=== PATIENT | female | born 1955 | race Two or more races ===

== ENCOUNTER 2022-03-24 12:45 | Inpatient (IN) | payer OTHER, SELFPAY ==
--- NOTE | ~2022-03-24 | XR_ITS ---
EXAMINATION: XR FOOT, LEFT CLINICAL INFORMATION: Infection great toe COMPARISON: None TECHNIQUE: AP, lateral, and oblique views of the left foot. FINDINGS: Soft tissue swelling of the first toe. No air or radiopaque foreign bodies identified in the soft tissues. In the distal aspect of first distal phalanx, there is bone demineralization, with subtle cortical ill-definition/irregularity of the distal medial tuft. Early osteomyelitis cannot be excluded. No acute findings identified in the remainder of the bones. Mild spurring and small chronic ossification adjacent to the fifth metatarsal base. Small Achilles tendon insertional spurring. XR/XR foot LT 2V IMPRESSION: First toe soft tissue swelling. Subtle bony findings in the distal aspect of first distal phalanx, raise the possibility of early osteomyelitis. MRI with and without contrast is more sensitive, and may be helpful, and can be considered as clinically indicated.
--- NOTE | ~2022-03-24 | MR_ITS ---
EXAMINATION: XR FOOT, LEFT CLINICAL INFORMATION: Left great toe suspected osteomyelitis on x-ray. COMPARISON: X-ray 03/24/2022. TECHNIQUE: MRI in a high-field magnet without and with contrast. 7.5 mL Gadavist. FINDINGS: FIRST TOE: There is dorsal soft tissue swelling of the 1st toe. In the dorsal soft tissues, is a bright T2/low T1 signal focus. This measures 2.8 x 3.9 x 1.3 cm (transverse, length, maximal AP measurement). No significant enhancement is seen. This could represent an inflammatory or infectious process, blister, abscess not excluded. There is otherwise circumferential soft tissue swelling and increased T2 signal/enhancement from edema/cellulitis. There is mild T2 signal with intermediate T1 signal changes in the 1st distal phalanx. Question faint enhancement in the tuft. These findings could reflect reactive edema or early osteomyelitis. Small 1st MTP joint effusion. Mild 1st MTP arthritis. No osteomyelitis is seen in the remainder of the bones. Essentially circumferential soft tissue swelling and subcutaneous edema/cellulitis in the foot, more prominent dorsally. Visualized tendons intact. There appears to mild peritendinitis of the flexor hallucis longus tendon as it courses in the region of the MTP joint and toe. Visualized plantar aponeurosis appears intact. MR/MR foot LT wo/w con IMPRESSION: 1. T2 bright focus along the dorsal aspect of the 1st toe measuring 2.8 x 3.9 x 1.3 cm, differential considerations include inflammatory process, infectious process, abscess not excluded. There is otherwise circumferential soft tissue swelling, edema/cellulitis. 2. Findings in the 1st distal phalanx, as detailed above, could represent reactive edema or early/evolving osteomyelitis. Follow-up MRI for reassessment as clinically warranted. 3. Mild flexor hallucis longus peritendinitis. 4. First MTP arthritis. 5. Circumferential soft tissue swelling and subcutaneous edema/cellulitis of the foot, more prominent dorsally. 6. Mild flexor hallucis longus peritendinitis.
--- NOTE | ~2022-03-24 | US_ITS ---
EXAMINATION: COLOR-FLOW DUPLEX IMAGING OF THE BILATERAL LOWER EXTREMITY ARTERIAL SYSTEM. VELOCITY MEASUREMENTS THROUGHOUT THE FEMORAL ARTERIES. CLINICAL INFORMATION: This is a 66 year-old woman with a nonhealing lower extremity ulcer. There is a positive smoking history. RIGHT FEMORAL RUNOFF VELOCITIES: The right common femoral artery peak systolic velocity is 175 cm/s. The waveform is triphasic. The right profunda femoral artery peak systolic velocity is 119 cm/s. The waveform is triphasic. The right proximal superficial femoral artery peak systolic velocity is 150 cm/s. The waveform is triphasic. The right mid superficial femoral artery peak systolic velocity is 126 cm/s. The waveform is triphasic. The right distal superficial femoral artery peak systolic velocity is 113 cm/s. The waveform is triphasic. The right popliteal artery peak systolic velocity is 72 cm/s. The waveform is triphasic. The right posterior tibial artery peak systolic velocity is 79 cm/s. The waveform is triphasic. LEFT FEMORAL RUNOFF VELOCITIES: The left common femoral artery peak systolic velocity is 165 cm/s. The waveform is triphasic. The left profunda femoral artery peak systolic velocity is 98 cm/s. The waveform is triphasic. The left proximal superficial femoral artery peak systolic velocity is 162 cm/s. The waveform is triphasic. The left mid superficial femoral artery peak systolic velocity is 151 cm/s. The waveform is triphasic. The left distal superficial femoral artery peak systolic velocity is 144 cm/s. The waveform is triphasic. The left popliteal artery peak systolic velocity is 105 cm/s. The waveform is triphasic. The left posterior tibial artery peak systolic velocity is 107 cm/s. The waveform is triphasic. US/US arterial duplex LE IMPRESSION: No hemodynamically significant bilateral lower extremity peripheral arterial disease is noted. EXAMINATION: NONINVASIVE ANKLE BRACHIAL INDICES OF BOTH LOWER EXTREMITIES CLINICAL INFORMATION: Nonhealing ulcer; smoking history. COMPARISON: None. TECHNIQUE: Ankle-brachial indices were calculated bilaterally and PVR tracings were performed at the level of the ankles. This study was performed at rest only. FINDINGS: a) AT REST: 1. The ankle-brachial indices are: Right 0.92 and left 0.88. >0.97-1.25 = normal - no significant arterial disease. 0.75-0.96 = mild peripheral arterial disease. 0.5-0.74 = moderate peripheral arterial disease. <0.50 = severe peripheral arterial disease. 2. PVR waveforms at ankle: Normal. IMPRESSION: Findings consistent with mild bilateral peripheral arterial disease.
[2022-03-24 13:17] VITALS: BP 150/78; PULSE 110; RESP 18; TEMP 36.8; O2SAT 98; BMI 30.1
--- NOTE | 2022-03-24 13:18 | ED_ITS ---
HPI - Skin/Abscess/Foreign Bdy General Chief complaint: Extremity Problem <Lashonda Wild NP - Last Filed: 03/24/22 13:20> Stated complaint: l thumb infection <Lashonda Wild NP - Last Filed: 03/24/22 13:20> Time Seen by Provider: 03/24/22 16:06 <Lashonda Wild NP - Last Filed: 03/24/22 13:20> Source: patient <Cara Altman NP - Last Filed: 03/24/22 22:37> Mode of arrival: ambulatory <Cara Altman NP - Last Filed: 03/24/22 22:37> Limitations: language barrier <Cara Altman NP - Last Filed: 03/24/22 22:37> History of Present Illness HPI narrative: 66-year-old female presents with left great toe pain and discoloration after a pedicure last week. She noted that the toe turned red and now is black and discolored. She does not report any fevers or chills, but is fatigued. She does have a history of pemphigoid and is treated with methotrexate and prednisone. <Cara Altman NP - Last Filed: 03/24/22 22:37> MD complaint: discoloration <Cara Altman NP - Last Filed: 03/24/22 22:37> Onset (ago): week(s) (1) <Cara Altman NP - Last Filed: 03/24/22 22:37> Tetanus up to date: unsure <Cara Altman NP - Last Filed: 03/24/22 22:37> Location: L foot <Cara Altman NP - Last Filed: 03/24/22 22:37> Severity: severe <Cara Altman NP - Last Filed: 03/24/22 22:37> Severity scale (1-10): 9 <Cara Altman NP - Last Filed: 03/24/22 22:37> Quality: aching <Cara Altman NP - Last Filed: 03/24/22 22:37> Pain Consistency: constant <Cara Altman NP - Last Filed: 03/24/22 22:37> Relieving factors: none <Cara Altman NP - Last Filed: 03/24/22 22:37> Exacerbating factors: palpation and movement <Cara Altman NP - Last Filed: 03/24/22 22:37> Context: other (Pedicure) <Cara Altman NP - Last Filed: 03/24/22 22:37> Associated symptoms: denies other symptoms <Cara Altman NP - Last Filed: 03/24/22 22:37> Treatments prior to arrival: none <Cara Altman NP - Last Filed: 03/24/22 22:37> Related Data Home medications: Home Medications Medication Instructions Recorded Confirmed Alergot Martinez Gan 1 drp ophthalmic (eye) BID 03/24/22 03/24/22 Biotalol 5 mg PO DAILY 03/24/22 03/24/22 Lagrioltol Martinez Gan 1 drp ophthalmic (eye) BID 03/24/22 03/24/22 ascorbic acid (vitamin C) 500 mg 500 mg PO DAILY 03/24/22 03/24/22 tablet (Vitamin C) folic acid 1 mg tablet 10 mg PO DAILY 03/24/22 03/24/22 levothyroxine 50 mcg tablet 50 mcg PO DAILY 03/24/22 03/24/22 (Euthyrox) methotrexate sodium 2.5 mg tablet 2.5 mg PO TU@0900 03/24/22 03/24/22 methotrexate sodium 2.5 mg tablet 5 mg PO MO@0900 03/24/22 03/24/22 mycophenolate mofetil 500 mg tablet 500 mg PO BID 03/24/22 03/24/22 pantoprazole 40 mg tablet,delayed 40 mg PO DAILY@0630 03/24/22 03/24/22 release prednisone 5 mg tablet 5 mg PO DAILY 03/24/22 03/24/22 quetiapine 25 mg tablet 12.5 mg PO DAILY 03/24/22 03/24/22 <Lashonda Wild NP - Last Filed: 03/24/22 13:20> Allergies/Adverse reactions: Allergies Allergy/AdvReac Type Severity Reaction Status Date / Time No Known Allergies Allergy Verified 03/24/22 13:19 <Lashonda Wild NP - Last Filed: 03/24/22 13:20> Review of Systems Review of Systems: Constitutional: No Fever, No Chills Cardiovascular: No Chest Pain, No SOB Respiratory: No Cough, No Dyspnea Gastrointestinal: No Nausea, No Vomiting, No Diarrhea, No abdominal Pain Musculoskeletal: positive left great toe pain, No Myalgias, No Joint Swelling Skin: Positive black discoloration to the left great toe, No Skin lacerations, No rash Neuro: No Weakness, No Numbness, No Paresthesias <Cara Altman NP - Last Filed: 03/24/22 22:37> Yes all other systems are reviewed and are negative <Cara Altman NP - Last Filed: 03/24/22 22:37> [facility] Past Medical History Attestation statement: The following information was validated with the patient. <Cara Altman NP - Last Filed: 03/24/22 22:37> Source: old records reviewed <Cara Altman NP - Last Filed: 03/24/22 22:37> Medical History: Medical History (Updated 03/24/22 @ 20:25 by MERT Montero) Jeff's thyroiditis Pemphigus vulgaris <Lashonda Wild NP - Last Filed: 03/24/22 13:20> Family History Family History: Family History Mother Diabetes <Lashonda Wild NP - Last Filed: 03/24/22 13:20> Social History Social History: Social History (Updated 03/24/22 @ 20:28 by MERT Montero) Alcohol intake: never Patient Tobacco Use Status: Former Tobacco user Smoked in Last 30 Days: No Use of substances other than those prescribed or required for medical reasons: No Advance Directives: No Advance Directives Information Provided: No <Lashonda Wild NP - Last Filed: 03/24/22 13:20> Physical Exam Vital Signs: Vital Signs: Last Vital Signs Temp 97.3 F 03/24/22 22:17 Pulse 109 H 03/24/22 22:17 Resp 18 03/24/22 22:17 BP 170/72 H 03/24/22 22:17 Pulse Ox 96 03/24/22 22:17 O2 Del Method 03/24/22 22:17 BMI result Body Mass Index 30.1 <Lashonda Wild NP - Last Filed: 03/24/22 13:20> Vital Signs: Last Vital Signs Temp 97.3 F 03/24/22 22:17 Pulse 109 H 03/24/22 22:17 Resp 18 03/24/22 22:17 BP 170/72 H 03/24/22 22:17 Pulse Ox 96 03/24/22 22:17 O2 Del Method 03/24/22 22:17 BMI result Body Mass Index 30.1 <Cara Altman NP - Last Filed: 03/24/22 22:37> Appearance: Alert. Oriented X3. Moderate distress. Eyes: Pupils equal, round and reactive to light. ENT: Pharynx normal. Neck: Normal inspection. Neck supple. CVS: Normal heart rate and rhythm. Pulses normal. Respiratory: No respiratory distress. Breath sounds normal. Abdomen: Soft and nontender. Skin: Black discoloration to the left great toe. Extremities: No lower extremity edema. Full range of motion to all digits. Neuro: No motor deficit. No sensory deficit. Cranial nerves 2-12 intact. <Cara Altman NP - Last Filed: 03/24/22 22:37> Course Course Course Narrative: This is a rapid medical exam. Defer additional HPI, ROS, PE department provider. 66 yo female with history of hashimotos, HTN here with left great toe infection after having pedicure. Will check x-rays, labs. VSS <Lashonda Wild NP - Last Filed: 03/24/22 13:20> This is a rapid medical exam. Defer additional HPI, ROS, PE department provider. 66 yo female with history of hashimotos, HTN here with left great toe infection after having pedicure. Will check x-rays, labs. VSS 66-year-old female presents for 1 week of left great toe swelling, pain and discoloration after a pedicure. 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 Patient does not have any history diabetes, or peripheral artery disease. She does not describe fevers, chills, but states to be in pain . X-rays completed while patient was in the emergency department waiting room, as well as lab values. Labs indicated elevated white count of 17.9 which could also be related to her prednisone use, interesting to note that the x-rays indicate suspicion of osteomyelitis. MRI was ordered however we do not have MRI available at this time. Order for vanco, cefepime as this is a foot injury and a possible puncture from a pedicure tool, fluids and pain management. Lactic and cultures are pending. Plan of care is to admit this patient for suspected osteomyelitis for IV antibiotics. I did describe plan in detail with patient and patient's daughter, both of which understand and agree with this plan. Patient requested that daughter translate, daughter has been at bedside throughout the entire duration of her stay. Patient verbalized understanding of and agrees to plan. <Cara stone, CRYSTAL MACHINING COORDINATOR - Last Filed: 03/24/22 22:37> Medications Administered Generic Name Dose Route Start Last Admin Trade Name Freq PRN Reason Stop Dose Admin Enoxaparin Sodium 40 mg 03/24/22 22:00 03/24/22 21:52 Enoxaparin Sodium 40 Mg/0.4 Ml Syringe SUBCUT 40 mg Q24H CARMELO Administration Cefepime HCl 2 gm/ Sodium 50 mls @ 100 mls/hr 03/24/22 22:00 03/24/22 21:51 Chloride IV 100 mls/hr Q12H CARMELO Administration Sodium Chloride 3 ml 03/25/22 00:00 03/24/22 21:52 0.9 % Sodium Chloride Flush 3 Ml Syringe IVFLUSH 3 ml QSHIFT CARMELO Administration Discontinued Medications Generic Name Dose Route Start Last Admin Trade Name Freq PRN Reason Stop Dose Admin Vancomycin HCl 1,000 mg/ 535 mls @ 267.5 mls/hr 03/24/22 16:11 03/24/22 21:18 Vancomycin HCl 750 mg/ Sodium IV 03/24/22 18:10 Infused Chloride ONCE ONE Infusion Cefepime HCl 1 gm/ Sodium 50 mls @ 100 mls/hr 03/24/22 16:11 03/24/22 19:25 Chloride IV 03/24/22 16:40 Infused ONCE ONE Infusion Sodium Chloride 1,000 mls @ 999 mls/hr 03/24/22 18:30 03/24/22 21:17 Ns IVCONT 03/24/22 19:30 Infused .Q1H1M CARMELO Infusion Morphine Sulfate 4 mg 03/24/22 18:50 03/24/22 19:26 Morphine Sulfate 4 Mg/Ml Cartridge IVPUSH 03/24/22 18:51 4 mg ONCE ONE Administration Protocol Ondansetron HCl 4 mg 03/24/22 18:50 03/24/22 19:26 Ondansetron Hcl 4 Mg/2 Ml Vial IVPUSH 03/24/22 18:51 4 mg ONCE ONE Administration <Lashonda Wild CRYSTAL MACHINING COORDINATOR - Last Filed: 03/24/22 13:20> Medications Administered Generic Name Dose Route Start Last Admin Trade Name Freq PRN Reason Stop Dose Admin Enoxaparin Sodium 40 mg 03/24/22 22:00 03/24/22 21:52 Enoxaparin Sodium 40 Mg/0.4 Ml Syringe SUBCUT 40 mg Q24H CARMELO Administration Cefepime HCl 2 gm/ Sodium 50 mls @ 100 mls/hr 03/24/22 22:00 03/24/22 21:51 Chloride IV 100 mls/hr Q12H CARMELO Administration Sodium Chloride 3 ml 03/25/22 00:00 03/24/22 21:52 0.9 % Sodium Chloride Flush 3 Ml Syringe IVFLUSH 3 ml QSHIFT CARMELO Administration Discontinued Medications Generic Name Dose Route Start Last Admin Trade Name Fremayo PRN Reason Stop Dose Admin Vancomycin HCl 1,000 mg/ 535 mls @ 267.5 mls/hr 03/24/22 16:11 03/24/22 21:18 Vancomycin HCl 750 mg/ Sodium IV 03/24/22 18:10 Infused Chloride ONCE ONE Infusion Cefepime HCl 1 gm/ Sodium 50 mls @ 100 mls/hr 03/24/22 16:11 03/24/22 19:25 Chloride IV 03/24/22 16:40 Infused ONCE ONE Infusion Sodium Chloride 1,000 mls @ 999 mls/hr 03/24/22 18:30 03/24/22 21:17 Ns IVCONT 03/24/22 19:30 Infused .Q1H1M CARMELO Infusion Morphine Sulfate 4 mg 03/24/22 18:50 03/24/22 19:26 Morphine Sulfate 4 Mg/Ml Cartridge IVPUSH 03/24/22 18:51 4 mg ONCE ONE Administration Protocol Ondansetron HCl 4 mg 03/24/22 18:50 03/24/22 19:26 Ondansetron Hcl 4 Mg/2 Ml Vial IVPUSH 03/24/22 18:51 4 mg ONCE ONE Administration <Cara Altman NP - Last Filed: 03/24/22 22:37> Medical Decision Making Differential Diagnosis Differential Diagnoses: The differential diagnosis associated with the presentation includes <Cara Altman NP - Last Filed: 03/24/22 22:37> Necrotizing fasciitis, gangrene, osteomyelitis, cellulitis <Cara Altman NP - Last Filed: 03/24/22 22:37> Admission/Observation Consideration of admission/observation: Escalation of care including admission/observation considered <Cara Altman NP - Last Filed: 03/24/22 22:37> Admission is required for this patient <Cara Altman NP - Last Filed: 03/24/22 22:37> Consult Healthcare Provider Management of the patient was discussed with: Hospitalist <Cara Altman NP - Last Filed: 03/24/22 22:37> Lab Data MDM Lab Attestation statement: I reviewed the patient's lab results. <Cara Altman NP - Last Filed: 03/24/22 22:37> Result Diagrams: 03/24/22 15:44 03/24/22 15:44 <Lashonda Wild NP - Last Filed: 03/24/22 13:20> Labs: Lab Results 03/24/22 03/24/22 03/24/22 Range/Units 15:44 15:44 15:44 WBC 17.9 H (4.8-10.8) X10*3/uL RBC 4.65 (4.20-5.50) X10*6/uL Hgb 13.3 (12.0-16.0) g/dl Hct 42.4 (37.0-47.0) % MCV 91.2 (80.0-98.0) fL MCH 28.6 (27.0-33.0) pg MCHC 31.4 (31.0-35.0) g/dl RDW 14.0 (11.0-16.0) % Plt Count 190 (160-400) X10*3/uL MPV 11.5 (9.4-12.3) fL Immature Gran % (Auto) 0.7 H (0.0-0.4) % Neut % (Auto) 77.7 H (45-73) % Lymph % (Auto) 8.0 L (20-40) % Swisher % (Auto) 13.1 H (2-11) % Eos % (Auto) 0.3 (0-4) % Baso % (Auto) 0.2 (0-2) % Lymph # (Auto) 1.4 (1.2-4.9) X10*3/uL Swisher # (Auto) 2.3 H (0.1-1.2) X10*3/uL Eos # (Auto) 0.1 (0.0-0.4) X10*3/uL Baso # (Auto) 0.0 (0.0-0.2) X10*3/uL Abs Immat Gran (auto) 0.12 H (0.00-0.03) X10*3/uL Absolute Neuts (auto) 13.9 H (2.0-8.3) x10*3/uL Absolute Nucleated RBC 0.000 (0.0-0.012) X10*3/uL Nucleated RBC % (auto) 0.0 (0.0-0.2) /100WBC ESR 16 (0-20) MM/HR Sodium 136 (135-145) mmol/L Potassium 3.6 (3.3-5.1) mmol/L Chloride 103 (96-108) mmol/L Carbon Dioxide 24 (22-29) mmol/L Anion Gap 13 (12-20) BUN 12 (9-16) mg/dL Creatinine 0.86 (0.5-1.4) mg/dL Estim Creat Clear Calc 56.1 Estimated GFR > 60 Random Glucose 107 (60-115) mg/dL Lactic Acid (0.5-2.0) mmol/L Calcium 8.8 (8.4-10.2) mg/dL C-Reactive Protein 6.66 H (< or = 0.50) mg/dL 03/24/22 Range/Units 17:24 WBC (4.8-10.8) X10*3/uL RBC (4.20-5.50) X10*6/uL Hgb (12.0-16.0) g/dl Hct (37.0-47.0) % MCV (80.0-98.0) fL MCH (27.0-33.0) pg MCHC (31.0-35.0) g/dl RDW (11.0-16.0) % Plt Count (160-400) X10*3/uL MPV (9.4-12.3) fL Immature Gran % (Auto) (0.0-0.4) % Neut % (Auto) (45-73) % Lymph % (Auto) (20-40) % Swisher % (Auto) (2-11) % Eos % (Auto) (0-4) % Baso % (Auto) (0-2) % Lymph # (Auto) (1.2-4.9) X10*3/uL Swisher # (Auto) (0.1-1.2) X10*3/uL Eos # (Auto) (0.0-0.4) X10*3/uL Baso # (Auto) (0.0-0.2) X10*3/uL Abs Immat Gran (auto) (0.00-0.03) X10*3/uL Absolute Neuts (auto) (2.0-8.3) x10*3/uL Absolute Nucleated RBC (0.0-0.012) X10*3/uL Nucleated RBC % (auto) (0.0-0.2) /100WBC ESR (0-20) MM/HR Sodium (135-145) mmol/L Potassium (3.3-5.1) mmol/L Chloride (96-108) mmol/L Carbon Dioxide (22-29) mmol/L Anion Gap (12-20) BUN (9-16) mg/dL Creatinine (0.5-1.4) mg/dL Estim Creat Clear Calc Estimated GFR Random Glucose (60-115) mg/dL Lactic Acid 1.2 (0.5-2.0) mmol/L Calcium (8.4-10.2) mg/dL C-Reactive Protein (< or = 0.50) mg/dL <Lashonda Pascucci, CRYSTAL MACHINING COORDINATOR - Last Filed: 03/24/22 13:20> Lab Results 03/24/22 03/24/22 03/24/22 Range/Units 15:44 15:44 15:44 WBC 17.9 H (4.8-10.8) X10*3/uL RBC 4.65 (4.20-5.50) X10*6/uL Hgb 13.3 (12.0-16.0) g/dl Hct 42.4 (37.0-47.0) % MCV 91.2 (80.0-98.0) fL MCH 28.6 (27.0-33.0) pg MCHC 31.4 (31.0-35.0) g/dl RDW 14.0 (11.0-16.0) % Plt Count 190 (160-400) X10*3/uL MPV 11.5 (9.4-12.3) fL Immature Gran % (Auto) 0.7 H (0.0-0.4) % Neut % (Auto) 77.7 H (45-73) % Lymph % (Auto) 8.0 L (20-40) % Swisher % (Auto) 13.1 H (2-11) % Eos % (Auto) 0.3 (0-4) % Baso % (Auto) 0.2 (0-2) % Lymph # (Auto) 1.4 (1.2-4.9) X10*3/uL Swisher # (Auto) 2.3 H (0.1-1.2) X10*3/uL Eos # (Auto) 0.1 (0.0-0.4) X10*3/uL Baso # (Auto) 0.0 (0.0-0.2) X10*3/uL Abs Immat Gran (auto) 0.12 H (0.00-0.03) X10*3/uL Absolute Neuts (auto) 13.9 H (2.0-8.3) x10*3/uL Absolute Nucleated RBC 0.000 (0.0-0.012) X10*3/uL Nucleated RBC % (auto) 0.0 (0.0-0.2) /100WBC ESR 16 (0-20) MM/HR Sodium 136 (135-145) mmol/L Potassium 3.6 (3.3-5.1) mmol/L Chloride 103 (96-108) mmol/L Carbon Dioxide 24 (22-29) mmol/L Anion Gap 13 (12-20) BUN 12 (9-16) mg/dL Creatinine 0.86 (0.5-1.4) mg/dL Estim Creat Clear Calc 56.1 Estimated GFR > 60 Random Glucose 107 (60-115) mg/dL Lactic Acid (0.5-2.0) mmol/L Calcium 8.8 (8.4-10.2) mg/dL C-Reactive Protein 6.66 H (< or = 0.50) mg/dL 03/24/22 Range/Units 17:24 WBC (4.8-10.8) X10*3/uL RBC (4.20-5.50) X10*6/uL Hgb (12.0-16.0) g/dl Hct (37.0-47.0) % MCV (80.0-98.0) fL MCH (27.0-33.0) pg MCHC (31.0-35.0) g/dl RDW (11.0-16.0) % Plt Count (160-400) X10*3/uL MPV (9.4-12.3) fL Immature Gran % (Auto) (0.0-0.4) % Neut % (Auto) (45-73) % Lymph % (Auto) (20-40) % Swisher % (Auto) (2-11) % Eos % (Auto) (0-4) % Baso % (Auto) (0-2) % Lymph # (Auto) (1.2-4.9) X10*3/uL Swisher # (Auto) (0.1-1.2) X10*3/uL Eos # (Auto) (0.0-0.4) X10*3/uL Baso # (Auto) (0.0-0.2) X10*3/uL Abs Immat Gran (auto) (0.00-0.03) X10*3/uL Absolute Neuts (auto) (2.0-8.3) x10*3/uL Absolute Nucleated RBC (0.0-0.012) X10*3/uL Nucleated RBC % (auto) (0.0-0.2) /100WBC ESR (0-20) MM/HR Sodium (135-145) mmol/L Potassium (3.3-5.1) mmol/L Chloride (96-108) mmol/L Carbon Dioxide (22-29) mmol/L Anion Gap (12-20) BUN (9-16) mg/dL Creatinine (0.5-1.4) mg/dL Estim Creat Clear Calc Estimated GFR Random Glucose (60-115) mg/dL Lactic Acid 1.2 (0.5-2.0) mmol/L Calcium (8.4-10.2) mg/dL C-Reactive Protein (< or = 0.50) mg/dL <Cara Altman NP - Last Filed: 03/24/22 22:37> Independent Interpretation I performed an independent interpretation of an: Plain X-Ray <Cara Altman NP - Last Filed: 03/24/22 22:37> Radiology Impression Discussion of test interpretation with radiology: I have reviewed the radiologist's reading. <Cara Altman NP - Last Filed: 03/24/22 22:37> Radiologist Impression: EXAMINATION: XR FOOT, LEFT CLINICAL INFORMATION: Infection great toe? COMPARISON: None? TECHNIQUE: AP, lateral, and oblique views of the left foot. FINDINGS: Soft tissue swelling of the first toe. No air or radiopaque foreign bodies identified in the soft tissues. In the distal aspect of first distal phalanx, there is bone demineralization, with subtle cortical ill-definition/irregularity of the distal medial tuft. Early osteomyelitis cannot be excluded. No acute findings identified in the remainder of the bones. Mild spurring and small chronic ossification adjacent to the fifth metatarsal base. Small Achilles tendon insertional spurring. XR/XR foot LT 2V IMPRESSION: First toe soft tissue swelling. Subtle bony findings in the distal aspect of first distal phalanx, raise the possibility of early osteomyelitis. MRI with and without contrast is more sensitive, and may be helpful, and can be considered as clinically indicated. <GIULIA Hoyos Last Filed: 03/24/22 22:37> Independent Historian Clinical information obtained from an independent historian. History obtained from or confirmed by: Other <Cara Altman NP - Last Filed: 03/24/22 22:37> Daughter <Cara Altman NP - Last Filed: 03/24/22 22:37> External Record Review External record reviewed: Outpatient record <Cara Altman NP - Last Filed: 03/24/22 22:37> Prescription Management I considered prescription management with: Pain Medication and Antibiotic <Cara Altman NP - Last Filed: 03/24/22 22:37> Discharge Plan Discharge Clinical Impression: Osteomyelitis, Cellulitis <Lashonda Wild NP - Last Filed: 03/24/22 13:20> Patient Disposition: Admitted As Inpatient <Lashonda Wild NP - Last Filed: 03/24/22 13:20>
[2022-03-24 15:56] LABS: MANUAL DIFF FLAG NO
[2022-03-24 16:00] LABS: Basophils Percent Auto 0.2 % (0-2); Eosinophils Absolute Auto 0.1 X10*3/uL (0.0-0.4); Eosinophils Percent Auto 0.3 % (0-4); Hematocrit 42.4 % (37.0-47.0); Hemoglobin 13.3 g/dl (12.0-16.0); Imm Gran Abs Auto 0.12 X10*3/uL (0.00-0.03); Imm Gran Pct Auto 0.7 % (0.0-0.4); Lymphocytes Absolute Auto 1.4 X10*3/uL (1.2-4.9); Mean Corpuscular HGB Conc 31.4 g/dl (31.0-35.0); Mean Corpuscular Hemoglobin 28.6 pg (27.0-33.0); Mean Corpuscular Volume 91.2 fL (80.0-98.0); Mean Platelet Volume 11.5 fL (9.4-12.3); Monocytes Absolute Auto 2.3 X10*3/uL (0.1-1.2); Monocytes Percent Auto 13.1 % (2-11); Neutrophils Absolute Auto 13.9 x10*3/uL (2.0-8.3); Neutrophils Percent Auto 77.7 % (45-73); Platelet Count 190 X10*3/uL (160-400); Red Blood Count 4.65 X10*6/uL (4.20-5.50); SCAN SMEAR FLAG 1; White Blood Count 17.9 X10*3/uL (4.8-10.8)
[2022-03-24 16:23] LABS: Anion Gap 13 (12-20); Blood Urea Nitrogen 12 mg/dL (9-16); Calcium 8.8 mg/dL (8.4-10.2); Carbon Dioxide 24 mmol/L (22-29); Chloride 103 mmol/L (96-108); Creatinine Clr Calc Pharmacy 56.1; Estimated Glomerular Filt Rate > 60; Glucose Random 107 mg/dL (60-115); Potassium 3.6 mmol/L (3.3-5.1); Sodium 136 mmol/L (135-145)
[2022-03-24] MEDS: cefEPime HCl 1 GM in 0.9 % Sodium Chloride 50 ML IV (17:37)
[2022-03-24 17:39] VITALS: BP 134/73; PULSE 82; RESP 18; TEMP 36.9; O2SAT 98
[2022-03-24] MEDS: vancomycin HCL 1,000 MG, vancomycin HCL 750 MG in 0.9 % Sodium Chloride 500 ML 267.5 MG IV (17:45)
[2022-03-24 17:46] LABS: Lactic Acid 1.2 mmol/L (0.5-2.0)
[2022-03-24] MEDS: 0.9 % Sodium Chloride 1,000 ML 999 ML IVCONT (19:04)
[2022-03-24] MEDS: ondansetron HCL 4 MG/2 ML VIAL IVPUSH (19:26)
[2022-03-24] MEDS: Morphine Sulfate 4 MG/ML CARTRIDGE IVPUSH (19:26)
--- NOTE | 2022-03-24 20:15 | PM.IMHP ---
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 Her daughter who is present at bedside assists with history/welsh interpretation reports a family member gave her mother a pedicure 1 week ago in the home. Three days ago developed pain, redness, and swelling. No fevers, chills, purulent drainage. On arrival, VSS. Leukocytosis 17.9 renal function and electrolyte levels normal. ESR and CRP pending. X-ray of the left foot showing great toe soft tissue swelling as well as subtle bony findings in the distal aspect of the 1st distal phalanx raising the possibility of early osteomyelitis, MRI recommended. Treat empirically in the ED with cefepime and vancomycin with pain control with morphine. Patient to be admitted for a suspected osteomyelitis of the left great toe. Review of Systems Review of Systems: General: No fevers, malaise, unintentional weight loss Cardiovascular: No chest pain, palpitations, or leg edema Respiratory: No shortness of breath, wheezing, cough GI: No abdominal pain, nausea, vomiting, diarrhea, constipation, melena, hematochezia : No dysuria, hematuria, increased urinary frequency, decreased urinary output MSK: No myalgia, back pain. +left great toe pain Neuro: No headaches, weakness, paresthesias Skin: +redness/swelling right great toe PMFSH Medical History (Updated 03/24/22 @ 20:25 by MERT Montero) Chang's thyroiditis Pemphigus vulgaris Family History Mother Diabetes Social History (Updated 03/24/22 @ 20:28 by MERT Montero) Alcohol intake: never Patient Tobacco Use Status: Former Tobacco user Smoked in Last 30 Days: No Use of substances other than those prescribed or required for medical reasons: No Advance Directives: No Advance Directives Information Provided: No Meds Allergies Allergy/AdvReac Type Severity Reaction Status Date / Time No Known Allergies Allergy Verified 03/24/22 13:19 Active Medications: Current Medications Acetaminophen (Acetaminophen 325 Mg Tablet) 650 mg PO Q6H PRN PRN Reason: Pain, Mild (Pain Scale 1-3) Enoxaparin Sodium (Enoxaparin Sodium 40 Mg/0.4 Ml Syringe) 40 mg SUBCUT Q24H CARMELO Cefepime HCl 2 gm/ Sodium (Chloride) 50 mls @ 100 mls/hr IV Q12H [facility] Melatonin (Melatonin 3 Mg Tablet) 6 mg PO BEDTIME PRN PRN Reason: Insomnia Morphine Sulfate (Morphine Sulfate 2 Mg/Ml Cartridge) 2 mg IVPUSH Q4H PRN; Protocol PRN Reason: Pain, Severe (Pain Scale 7-10) Ondansetron HCl (Ondansetron Hcl 4 Mg/2 Ml Vial) 4 mg IVPUSH Q8H PRN PRN Reason: Nausea and Vomiting Pharmacy Consult (Consult Rx Perform Med Rec) 1 each MISCELLANE ONCE STA Stop: 03/24/22 18:18 Pharmacy Consult (Consult Rx Vancomycin Dosing) 1 each MISCELLANE DAILY PRN PRN Reason: Consult order Sodium Chloride (0.9 % Sodium Chloride Flush 3 Ml Syringe) 3 ml IVFLUSH QSHIFT [facility] Physical Exam Vital Signs and Narrative: Vital Signs: Last Vital Signs Temp 98.4 F 03/24/22 17:39 Pulse 82 03/24/22 17:39 Resp 18 03/24/22 17:39 BP 134/73 03/24/22 17:39 Pulse Ox 98 03/24/22 17:39 O2 Del Method 03/24/22 17:39 BMI result Body Mass Index 30.1 Constitutional - Awake and Alert, No apparent distress Eyes - PERRLA, EOMI Cardiovascular - S1S2, RRR, No edema Respiratory - Normal lung expansion, Normal respiratory effort, No respiratory distress, CTA bilaterally Gastrointestinal - NT / ND; +BS; No rebound or guarding Extremities - no calf tenderness bilaterally. Skin - Warm/Dry. Soft tissue swelling/ecchymosis periungual/ dorsal aspect left great toe with mild erythema and warmth extending to first MTP. See photo Neurological - Alert & oriented x3, CN II-XII in tact, 5/5 strength BUE and BLE Psychological - Appropriate affect Results Labs 03/24/22 15:44 03/24/22 15:44 Labs: Laboratory Results - last 24 hr 03/24/22 03/24/22 03/24/22 15:44 15:44 17:24 MCV 91.2 MCH 28.6 MCHC 31.4 RDW 14.0 Plt Count 190 MPV 11.5 Immature Gran % (Auto) 0.7 H Neut % (Auto) 77.7 H Lymph % (Auto) 8.0 L [place] % (Auto) 13.1 H Eos % (Auto) 0.3 Baso % (Auto) 0.2 Lymph # (Auto) 1.4 [place] # (Auto) 2.3 H Eos # (Auto) 0.1 Baso # (Auto) 0.0 Abs Immat Gran (auto) 0.12 H Absolute Neuts (auto) 13.9 H Absolute Nucleated RBC 0.000 Nucleated RBC % (auto) 0.0 Anion Gap 13 Estim Creat Clear Calc 56.1 Estimated GFR > 60 Random Glucose 107 Lactic Acid 1.2 Calcium 8.8 Imaging Radiologist's Impressions: Impressions Foot X-Ray 03/24/22 14:06 IMPRESSION: First toe soft tissue swelling. Subtle bony findings in the distal aspect of first distal phalanx, raise the possibility of early osteomyelitis. MRI with and without contrast is more sensitive, and may be helpful, and can be considered as clinically indicated. Assessment and Plan (1) Osteomyelitis: Status: Acute (2) Cellulitis: Status: Acute Plan 66 year old female with history of pemphigus vulgaris on chronic prednisone and methotrexate and chang's thyroiditis admitted for acute osteomyelitis of the left great toe. #Acute osteomyelitis/cellulitis L great toe -XRay left foot showing soft tissue swelling of the left great toe with subtle bony findings the distal aspect of the 1st distal phalanx raising the possibility of early osteomyelitis -Home pedicure was performed only 6 days ago. MRI pending to confirm osteomyelitis -ESR and CRP pending. Leukocytosis of 17.9, likely related to infection as well as chronic prednisone use -IV vanco and cefepime -ID consult pending -admit to med surge for IV antibiotics -follow CBC # pemphigus vulgaris -Hold methotrexate at this time. Continue prednisone #Chang's -Continue levothyroxine DVT prophylaxis-Lovenox Full code Patient requires inpatient stay for at least 2 midnights for management of acute osteomyelitis/cellulitis requiring IV antibiotics and expert consultation Time Spent With Patient Time: Total time managing care of this patient today ____ minutes. Quality Stroke Does the patient have a stroke diagnosis?: No VTE Prior VTE?: No VTE Risk Level:: Medical - moderate - high VTE Device Contraindication: Treatment Not Indicated VTE Drug Contraindication: N/A - Med Ordered
--- NOTE | 2022-03-24 20:28 | PHA.PROG ---
Admission Date/Time: March 24, 2022 19:49 Indication: BONE AND JOINT Weight in k kg Adjusted body weight in K.3 [place] body weight in K.5 Obesity Dosing Indication % IBW: Serum Creatinine - Last 168 Hours 03/24/22 15:44 Creatinine 0.86 Estimated CrCl and GFR - Last 168 Hours 03/24/22 15:44 Estim Creat Clear Calc 56.1 Estimated GFR > 60 Vancomycin Loading Dose: 1750 Current Vancomycin Dosing Regimen:1 GRAM Q 24 HOURS Vancomycin Monitoring using AUC goal of 400 - 600 range with trough as surrogate marker:PREDICTED AUC 467 Date and Time for next Vancomycin Level to be drawn:03/26 1500 Pharmacist Comments on Vancomycin Plan: WILL CHECK A LEVEL AFTER 2 DOSES Vancomycin dosing will take advantage of Physitrack as a clinical decision support tool that uses Bayesian modeling to calculate individual patient's pharmacokinetic parameters and forecast the patient's drug concentration time course with the target goal AUC 24 range of 400 - 600 mg/L/hr.
[2022-03-24 20:33] LABS: C Reactive Protein 6.66 mg/dL (< or = 0.50)
[2022-03-24 20:33] LABS: COVID-19 Test Negative (Negative); IDNOW Serial# 16C4AD1C
--- NOTE | 2022-03-24 20:57 | PHA.MEDREC ---
Pharmacy Consult ? Medication Reconciliation Pharmacy has completed the medication reconciliation. Family had a med list from [facility] Through research, we believe Biotalol is bisoprolol and Alergot is azelastine. Unable to translate Lagrioltol eye drops
[2022-03-24 21:27] LABS: Erythrocyte Sedimentation Rate 16 MM/HR (0-20)
[2022-03-24] MEDS: cefEPime HCl 2 GM in 0.9 % Sodium Chloride 50 ML IV (21:51)
[2022-03-24] MEDS: Enoxaparin Sodium 40 MG/0.4 ML SYRINGE SUBCUT (21:52)
[2022-03-24] MEDS: 0.9 % Sodium Chloride Flush 3 ML SYRINGE IVFLUSH (21:52)
[2022-03-24 22:17] VITALS: BP 170/72; PULSE 109; RESP 18; TEMP 36.3; O2SAT 96
[2022-03-25] MEDS: Morphine Sulfate 2 MG/ML CARTRIDGE IVPUSH ×2 (00:33→20:56)
[2022-03-25 04:00] VITALS: BP 131/77; PULSE 86; RESP 16; TEMP 36.9; O2SAT 94
[2022-03-25 07:15] LABS: Basophils Percent Auto 0.2 % (0-2); Eosinophils Absolute Auto 0.2 X10*3/uL (0.0-0.4); Eosinophils Percent Auto 1.1 % (0-4); Hemoglobin 11.7 g/dl (12.0-16.0); Imm Gran Abs Auto 0.12 X10*3/uL (0.00-0.03); Imm Gran Pct Auto 0.7 % (0.0-0.4); Lymphocytes Absolute Auto 1.2 X10*3/uL (1.2-4.9); Lymphocytes Percent Auto 7.4 % (20-40); MANUAL DIFF FLAG SCAN; Mean Corpuscular HGB Conc 31.6 g/dl (31.0-35.0); Mean Corpuscular Hemoglobin 28.7 pg (27.0-33.0); Mean Corpuscular Volume 90.7 fL (80.0-98.0); Mean Platelet Volume 11.9 fL (9.4-12.3); Monocytes Absolute Auto 2.2 X10*3/uL (0.1-1.2); Monocytes Percent Auto 13.6 % (2-11); Neutrophils Absolute Auto 12.3 x10*3/uL (2.0-8.3); Platelet Count 149 X10*3/uL (160-400); Red Blood Count 4.08 X10*6/uL (4.20-5.50); Red Cell Distribution Width 13.9 % (11.0-16.0); SCAN SMEAR FLAG 1; White Blood Count 16.1 X10*3/uL (4.8-10.8)
--- NOTE | 2022-03-25 07:34 | MHC.CM.PN ---
MET WITH PATIENT AND SPOUSE (WITH PERMISSION) WITH HELP OF [employer]. PATIENT AND SPOUSE ARE NEW TO [facility]. NO PCP ESTABLISHED YET NO HCP ON FILE AND CASE MANAGEMENT CAN ASSIST. COVID VACCINATED X 2 AND 1 BOOSTER. NO DME OR [facility] SERVICES IN THE HOME. IMM 03/25 SIGNED AND IN CHART.
[2022-03-25 07:44] LABS: SLIDE REVIEW VERIFIED
[2022-03-25 07:46] LABS: Anion Gap 12 (12-20); Blood Urea Nitrogen 9 mg/dL (9-16); Calcium 8.2 mg/dL (8.4-10.2); Carbon Dioxide 22 mmol/L (22-29); Chloride 106 mmol/L (96-108); Creatinine Clr Calc Pharmacy 59.6; Estimated Glomerular Filt Rate > 60; Glucose Random 109 mg/dL (60-115); Potassium 3.8 mmol/L (3.3-5.1); Sodium 136 mmol/L (135-145)
[2022-03-25 08:00] VITALS: BP 145/67; PULSE 94; RESP 18; TEMP 37.1; O2SAT 94
--- NOTE | 2022-03-25 09:22 | HE.PHANOTE ---
Vancomcyin Dosing Patient renal function is stable. Continue current regimen vancomycin 1000 mg Q24H. Level schedule from 03/26 @ 1500. Epi HewittD
[2022-03-25] MEDS: Acetaminophen 325 MG TABLET 650 MG PO (09:49)
[2022-03-25] MEDS: cefEPime HCl 2 GM in 0.9 % Sodium Chloride 50 ML IV ×2 (09:51→20:56)
[2022-03-25] MEDS: 0.9 % Sodium Chloride Flush 3 ML SYRINGE IVFLUSH ×2 (09:51→17:34)
--- NOTE | 2022-03-25 13:28 | P.PNIM_ITS ---
Subjective Subjective Date of Service: 03/25/22 Interval History: Seen in follow for acute cellulitis left great toe with suspected osteomyelitis Interval history: No complaints. Pain controlled. MRI pending Review of Systems General: No fevers, malaise, unintentional weight loss Cardiovascular: No chest pain, palpitations, or leg edema Respiratory: No shortness of breath, wheezing, cough GI: No abdominal pain, nausea, vomiting, diarrhea, constipation, melena, hematochezia MSK: No myalgia, back pain Neuro: No headaches, weakness, paresthesias Skin: No rashes or lesions Physical Exam Vital Signs: Vital Signs: Last Vital Signs Temp 98.7 F 03/25/22 08:00 Pulse 94 03/25/22 08:00 Resp 18 03/25/22 08:00 BP 145/67 H 03/25/22 08:00 Pulse Ox 94 03/25/22 08:00 O2 Del Method 03/25/22 08:00 BMI result Body Mass Index 30.1 Constitutional - Awake and Alert, No apparent distress Eyes - PERRLA, EOMI Cardiovascular - S1S2, RRR, No edema Respiratory - Normal lung expansion, Normal respiratory effort, No respiratory distress, CTA bilaterally Gastrointestinal - NT / ND; +BS; No rebound or guarding Extremities - no calf tenderness bilaterally. Skin - Warm/Dry. Soft tissue swelling/ecchymosis periungual/ dorsal aspect left great toe with mild erythema and warmth extending to first MTP Neurological - Alert & oriented x3 Psychological - Appropriate affect Objective Data Active Medications Acetaminophen (Acetaminophen 325 Mg Tablet) 650 mg PO Q6H PRN PRN Reason: Pain, Mild (Pain Scale 1-3) Last Admin: 03/25/22 09:49 Dose: 650 mg Documented By: APOLLO Enoxaparin Sodium (Enoxaparin Sodium 40 Mg/0.4 Ml Syringe) 40 mg SUBCUT Q24H CARMELO Last Admin: 03/24/22 21:52 Dose: 40 mg Documented By: AQUILES Cefepime HCl 2 gm/ Sodium (Chloride) 50 mls @ 100 mls/hr IV Q12H CARMELO Last Infusion: 03/25/22 10:40 Dose: 0 mls/hr Documented By: APOLLO Vancomycin HCl 1,000 mg/ (Sodium Chloride) 270 mls @ 270 mls/hr IV Q24H CARMELO Melatonin (Melatonin 3 Mg Tablet) 6 mg PO BEDTIME PRN PRN Reason: Insomnia Morphine Sulfate (Morphine Sulfate 2 Mg/Ml Cartridge) 2 mg IVPUSH Q4H PRN; Protocol PRN Reason: Pain, Severe (Pain Scale 7-10) Last Admin: 03/25/22 00:33 Dose: 2 mg Documented By: GENO Ondansetron HCl (Ondansetron Hcl 4 Mg/2 Ml Vial) 4 mg IVPUSH Q8H PRN PRN Reason: Nausea and Vomiting Pharmacy Consult (Consult Rx Vancomycin Dosing) 1 each MISCELLANE DAILY PRN PRN Reason: Consult order Sodium Chloride (0.9 % Sodium Chloride Flush 3 Ml Syringe) 3 ml IVFLUSH QSHIFT [facility] Last Admin: 03/25/22 09:51 Dose: 3 ml Documented By: APOLLO Labs 03/25/22 05:55 03/25/22 05:55 Labs: Laboratory Results - last 24 hr 03/24/22 03/24/22 03/24/22 15:44 15:44 15:44 MCV 91.2 MCH 28.6 MCHC 31.4 RDW 14.0 Plt Count 190 MPV 11.5 Immature Gran % (Auto) 0.7 H Neut % (Auto) 77.7 H Lymph % (Auto) 8.0 L [place] % (Auto) 13.1 H Eos % (Auto) 0.3 Baso % (Auto) 0.2 Lymph # (Auto) 1.4 [place] # (Auto) 2.3 H Eos # (Auto) 0.1 Baso # (Auto) 0.0 Abs Immat Gran (auto) 0.12 H Absolute Neuts (auto) 13.9 H Absolute Nucleated RBC 0.000 Nucleated RBC % (auto) 0.0 Smear Tech's Comments ESR 16 Anion Gap 13 Estim Creat Clear Calc 56.1 Estimated GFR > 60 Random Glucose 107 Lactic Acid Calcium 8.8 C-Reactive Protein 6.66 H COVID-19 ([facility]) COVID-19 Clin Com 03/24/22 03/24/22 03/25/22 17:24 20:09 05:55 MCV 90.7 MCH 28.7 MCHC 31.6 RDW 13.9 Plt Count 149 L MPV 11.9 Immature Gran % (Auto) 0.7 H Neut % (Auto) 77.0 H Lymph % (Auto) 7.4 L [place] % (Auto) 13.6 H Eos % (Auto) 1.1 Baso % (Auto) 0.2 Lymph # (Auto) 1.2 [place] # (Auto) 2.2 H Eos # (Auto) 0.2 Baso # (Auto) 0.0 Abs Immat Gran (auto) 0.12 H Absolute Neuts (auto) 12.3 H Absolute Nucleated RBC 0.000 Nucleated RBC % (auto) 0.0 Smear Tech's Comments VERIFIED ESR Anion Gap Estim Creat Clear Calc Estimated GFR Random Glucose Lactic Acid 1.2 Calcium C-Reactive Protein COVID-19 ([facility]) Negative COVID-19 Clin Com See Note 03/25/22 05:55 MCV MCH MCHC RDW Plt Count MPV Immature Gran % (Auto) Neut % (Auto) Lymph % (Auto) [place] % (Auto) Eos % (Auto) Baso % (Auto) Lymph # (Auto) [place] # (Auto) Eos # (Auto) Baso # (Auto) Abs Immat Gran (auto) Absolute Neuts (auto) Absolute Nucleated RBC Nucleated RBC % (auto) Smear Tech's Comments ESR Anion Gap 12 Estim Creat Clear Calc 59.6 Estimated GFR > 60 Random Glucose 109 Lactic Acid Calcium 8.2 L D C-Reactive Protein COVID-19 ([facility]) COVID-19 Clin Com Assessment and Plan (1) Osteomyelitis: Status: Acute (2) Cellulitis: Status: Acute Plan 66 year old female with history of pemphigus vulgaris on chronic prednisone and methotrexate and chang's thyroiditis admitted for acute osteomyelitis of the left great toe. #Acute osteomyelitis/cellulitis L great toe -XRay left foot showing soft tissue swelling of the left great toe with subtle bony findings the distal aspect of the 1st distal phalanx raising the possibility of early osteomyelitis -Home pedicure was performed only 6 days ago. MRI pending to confirm osteomyelitis -ESR normal, CRP >6. WBC trending down (has baseline leukocytosis due to chronic prednisone use) -IV vanco and cefepime -ID consult pending -admit to med surge for IV antibiotics -follow CBC # pemphigus vulgaris -Hold methotrexate at this time due to infection. Continue prednisone #Chang's -Continue levothyroxine DVT prophylaxis-Lovenox Full code Patient requires ongoing inpatient stay for at least 2 midnights for management of acute osteomyelitis/cellulitis requiring IV antibiotics and expert consultation. If MRI foot negative for osteo, will consider discharge home with PO antibiotics. Time Spent With Patient Time: Total time managing care of this patient today ____ minutes. Quality Stroke Does the patient have a stroke diagnosis?: No VTE Prior VTE?: No VTE Risk Level:: Medical - moderate - high VTE Device Contraindication: Treatment Not Indicated VTE Drug Contraindication: N/A - Med Ordered
[2022-03-25 15:50] VITALS: BP 123/58; PULSE 74; RESP 18; TEMP 36.4; O2SAT 96
[2022-03-25] MEDS: vancomycin HCL 1,000 MG in 0.9 % Sodium Chloride 250 ML 270 MG IV (17:34)
[2022-03-25 19:40] VITALS: BP 139/65; PULSE 99; RESP 18; TEMP 36.4; O2SAT 96
[2022-03-25] MEDS: Enoxaparin Sodium 40 MG/0.4 ML SYRINGE SUBCUT (20:56)
[2022-03-26 03:22] VITALS: BP 150/72; PULSE 91; RESP 18; TEMP 36.6; O2SAT 94
[2022-03-26] MEDS: Morphine Sulfate 2 MG/ML CARTRIDGE IVPUSH ×2 (03:29→23:59)
[2022-03-26] MEDS: Omeprazole 20 MG CAPSULE.DR PO (06:12)
[2022-03-26 07:15] VITALS: BP 113/56; PULSE 77; RESP 18; TEMP 36.8; O2SAT 94
[2022-03-26 07:24] LABS: Basophils Percent Auto 0.2 % (0-2); Eosinophils Absolute Auto 0.3 X10*3/uL (0.0-0.4); Eosinophils Percent Auto 1.8 % (0-4); Hematocrit 36.1 % (37.0-47.0); Hemoglobin 11.3 g/dl (12.0-16.0); Imm Gran Abs Auto 0.08 X10*3/uL (0.00-0.03); Imm Gran Pct Auto 0.5 % (0.0-0.4); Lymphocytes Absolute Auto 1.3 X10*3/uL (1.2-4.9); Lymphocytes Percent Auto 8.7 % (20-40); MANUAL DIFF FLAG SCAN; Mean Corpuscular HGB Conc 31.3 g/dl (31.0-35.0); Mean Corpuscular Hemoglobin 29.1 pg (27.0-33.0); Mean Platelet Volume 12.3 fL (9.4-12.3); Monocytes Absolute Auto 1.8 X10*3/uL (0.1-1.2); Monocytes Percent Auto 12.2 % (2-11); Neutrophils Absolute Auto 11.5 x10*3/uL (2.0-8.3); Neutrophils Percent Auto 76.6 % (45-73); Platelet Count 149 X10*3/uL (160-400); Red Blood Count 3.88 X10*6/uL (4.20-5.50); Red Cell Distribution Width 13.7 % (11.0-16.0); SCAN SMEAR FLAG 1
[2022-03-26] MEDS: 0.9 % Sodium Chloride Flush 3 ML SYRINGE IVFLUSH ×3 (07:32→21:23)
[2022-03-26] MEDS: Metoprolol Tartrate 25 MG TABLET PO ×2 (07:32→21:24)
[2022-03-26] MEDS: QUEtiapine Fumarate 25 MG TABLET 12.5 MG PO (07:32)
[2022-03-26] MEDS: Levothyroxine Sodium 50 MCG TABLET PO (07:32)
[2022-03-26] MEDS: predniSONE 5 MG TABLET PO (07:33)
[2022-03-26] MEDS: Ascorbic Acid 500 MG TABLET PO (07:33)
[2022-03-26] MEDS: Folic Acid 1 MG TABLET 10 MG PO (07:33)
[2022-03-26 07:52] LABS: Anion Gap 10 (12-20); Blood Urea Nitrogen 11 mg/dL (9-16); Calcium 8.1 mg/dL (8.4-10.2); Carbon Dioxide 23 mmol/L (22-29); Chloride 106 mmol/L (96-108); Creatinine Clr Calc Pharmacy 56.8; Estimated Glomerular Filt Rate > 60; Glucose Random 121 mg/dL (60-115); Potassium 3.9 mmol/L (3.3-5.1); Sodium 135 mmol/L (135-145)
[2022-03-26 08:36] LABS: SLIDE REVIEW VERIFIED
[2022-03-26] MEDS: cefEPime HCl 2 GM in 0.9 % Sodium Chloride 50 ML IV ×2 (10:31→21:22)
--- NOTE | 2022-03-26 13:39 | P.PNIM_ITS ---
Subjective Subjective Date of Service: 03/26/22 Interval History: Seen in follow for acute cellulitis left great toe with suspected osteomyelitis Interval history: No complaints. Pain controlled with morphine. MRI confirms osteomyelitis Review of Systems General: No fevers, malaise, unintentional weight loss Cardiovascular: No chest pain, palpitations, or leg edema Respiratory: No shortness of breath, wheezing, cough GI: No abdominal pain, nausea, vomiting, diarrhea, constipation, melena, hematochezia MSK: No myalgia, back pain Neuro: No headaches, weakness, paresthesias Skin: No rashes or lesions Physical Exam Vital Signs: Vital Signs: Last Vital Signs Temp 98.2 F 03/26/22 07:15 Pulse 77 03/26/22 07:15 Resp 18 03/26/22 07:15 BP 113/56 L 03/26/22 07:15 Pulse Ox 94 03/26/22 07:15 O2 Del Method 03/26/22 07:15 BMI result Body Mass Index 30.1 Constitutional - Awake and Alert, No apparent distress Eyes - PERRLA, EOMI Cardiovascular - S1S2, RRR, No edema Respiratory - Normal lung expansion, Normal respiratory effort, No respiratory distress, CTA bilaterally Gastrointestinal - NT / ND; +BS; No rebound or guarding Extremities - no calf tenderness bilaterally. Skin - Warm/Dry. Soft tissue swelling/ecchymosis periungual/ dorsal aspect left great toe with mild erythema and warmth extending to first MTP. Increase in size of serous fluid containing bulla. see photo Neurological - Alert & oriented x3 Psychological - Appropriate affect Objective Data Active Medications Acetaminophen (Acetaminophen 325 Mg Tablet) 650 mg PO Q6H PRN PRN Reason: Pain, Mild (Pain Scale 1-3) Last Admin: 03/25/22 09:49 Dose: 650 mg Documented By: APOLLO Ascorbic Acid (Ascorbic Acid 500 Mg Tablet) 500 mg PO DAILY [facility] Last Admin: 03/26/22 07:33 Dose: 500 mg Documented By: LAY Enoxaparin Sodium (Enoxaparin Sodium 40 Mg/0.4 Ml Syringe) 40 mg SUBCUT Q24H [facility] Last Admin: 03/25/22 20:56 Dose: 40 mg Documented By: KORY Folic Acid (Folic Acid 1 Mg Tablet) 10 mg PO DAILY [facility] Last Admin: 03/26/22 07:33 Dose: 10 mg Documented By: LAY Cefepime HCl 2 gm/ Sodium (Chloride) 50 mls @ 100 mls/hr IV Q12H [facility] Last Infusion: 03/26/22 11:06 Dose: 0 mls/hr Documented By: HECTOR Vancomycin HCl 1,000 mg/ (Sodium Chloride) 270 mls @ 270 mls/hr IV Q24H [facility] Last Infusion: 03/25/22 21:20 Dose: 0 mls/hr Documented By: KORY Levothyroxine Sodium (Levothyroxine Sodium 50 Mcg Tablet) 50 mcg PO DAILY [facility] Last Admin: 03/26/22 07:32 Dose: 50 mcg Documented By: LAY Melatonin (Melatonin 3 Mg Tablet) 6 mg PO BEDTIME PRN PRN Reason: Insomnia Metoprolol Tartrate (Metoprolol Tartrate 25 Mg Tablet) 25 mg PO BID [facility] Last Admin: 03/26/22 07:32 Dose: 25 mg Documented By: LAY Morphine Sulfate (Morphine Sulfate 2 Mg/Ml Cartridge) 2 mg IVPUSH Q4H PRN; Protocol PRN Reason: Pain, Severe (Pain Scale 7-10) Last Admin: 03/26/22 03:29 Dose: 2 mg Documented By: LUANNE Non-Formulary Medication (Alergot Gotas Oftamicas) 1 drop EYE-BOTH BID [facility] Non-Formulary Medication (Lagrioltol Gotas Oftamicas) 1 drop EYE-BOTH BID [facility] Omeprazole (Omeprazole 20 Mg Capsule.Dr) 20 mg PO DAILY@0630 [facility] Last Admin: 03/26/22 06:12 Dose: 20 mg Documented By: LUANNE Ondansetron HCl (Ondansetron Hcl 4 Mg/2 Ml Vial) 4 mg IVPUSH Q8H PRN PRN Reason: Nausea and Vomiting Pharmacy Consult (Consult Rx Vancomycin Dosing) 1 each MISCELLANE DAILY PRN PRN Reason: Consult order Prednisone (Prednisone 5 Mg Tablet) 5 mg PO DAILY [facility] Last Admin: 03/26/22 07:33 Dose: 5 mg Documented By: LAY Quetiapine Fumarate (Quetiapine Fumarate 25 Mg Tablet) 12.5 mg PO DAILY [facility] Last Admin: 03/26/22 07:32 Dose: 12.5 mg Documented By: LAY Sodium Chloride (0.9 % Sodium Chloride Flush 3 Ml Syringe) [facility] Admin: 03/26/22 07:32 Dose: 3 ml Documented By: LAY Labs 03/26/22 06:12 03/26/22 06:12 Labs: Laboratory Results - last 24 hr 03/26/22 03/26/22 06:12 06:12 MCV 93.0 MCH 29.1 MCHC 31.3 RDW 13.7 Plt Count 149 L MPV 12.3 Immature Gran % (Auto) 0.5 H Neut % (Auto) 76.6 H Lymph % (Auto) 8.7 L [place] % (Auto) 12.2 H Eos % (Auto) 1.8 Baso % (Auto) 0.2 Lymph # (Auto) 1.3 [place] # (Auto) 1.8 H Eos # (Auto) 0.3 Baso # (Auto) 0.0 Abs Immat Gran (auto) 0.08 H Absolute Neuts (auto) 11.5 H Absolute Nucleated RBC 0.000 Nucleated RBC % (auto) 0.0 Smear Tech's Comments VERIFIED Anion Gap 10 L Estim Creat Clear Calc 56.8 Estimated GFR > 60 Random Glucose 121 H Calcium 8.1 L Microbiology Microbiology Results: Microbiology 03/24/22 17:27 Blood Culture - Preliminary Blood - Venous No growth after 24 hours. 03/24/22 17:24 Blood Culture - Preliminary Blood - Venous No growth after 24 hours. Assessment and Plan (1) Osteomyelitis: Status: Acute (2) Cellulitis: Status: Acute Plan 66 year old female with history of pemphigus vulgaris on chronic prednisone and methotrexate and chang's thyroiditis admitted for acute osteomyelitis of the left great toe. #Acute osteomyelitis/cellulitis L great toe -MRI confirming early osteomyelitis distal phalanx left great toe -WBC trending down (has baseline leukocytosis due to chronic prednisone use) -IV vanco and cefepime -ID consult pending -PICC line once BC neg x48 hours -follow CBC # pemphigus vulgaris -Hold methotrexate and mycophenolate at this time due to infection. 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 Quality Stroke Does the patient have a stroke diagnosis?: No VTE Prior VTE?: No VTE Risk Level:: Medical - moderate - high VTE Device Contraindication: Treatment Not Indicated VTE Drug Contraindication: N/A - Med Ordered
[2022-03-26 15:05] VITALS: BP 135/69; PULSE 89; RESP 18; TEMP 36.7; O2SAT 96
--- NOTE | 2022-03-26 15:32 | P.CNID_ITS ---
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 She had pedicure in salon about 8 days before admission. She has MRI left foot 2.8 x 3.9 cm collection left foot. She has no fever or chills. Review of Systems Review of Systems: Yes all other systems are reviewed and are negative [facility] Past Medical History Medical History Jeff's thyroiditis Pemphigus vulgaris Family History Family History Mother Diabetes Family history: reviewed and not pertinent Social History Social History Household Members: Spouse Alcohol intake: never Patient Tobacco Use Status: Former Tobacco user Smoked in Last 30 Days: No e-Cigarette/Vaping Use: Never Used Use of substances other than those prescribed or required for medical reasons: No Currently Displaying Signs/Symptoms of Drug Intoxication Withdrawal: No Have you been hit, kicked, punched, or otherwise hurt by someone within the past year? If so, by whom?: No Do you feel safe in your current relationship?: Yes Is there a partner from a previous relationship who is making you feel unsafe now?: No Are you made to feel afraid or neglected: No Advance Directives: No Advance Directives Information Provided: No Do you have thoughts of harming others: None Do you have a plan to hurt others: No Plan How much weight loss: Not applicable Eating poorly because of decreased appetite: No Nutrition Risks: No Nutritional Risk Patient : No : No Poor oral hygiene: No service: No Current occupational status: retired Meds Allergies Allergy/AdvReac Type Severity Reaction Status Date / Time No Known Allergies Allergy Verified 03/24/22 13:19 Active Medications: Current Medications Acetaminophen (Acetaminophen 325 Mg Tablet) 650 mg PO Q6H PRN PRN Reason: Pain, Mild (Pain Scale 1-3) Last Admin: 03/25/22 09:49 Dose: 650 mg Ascorbic Acid (Ascorbic Acid 500 Mg Tablet) 500 mg PO DAILY [facility] Last Admin: 03/26/22 07:33 Dose: 500 mg Enoxaparin Sodium (Enoxaparin Sodium 40 Mg/0.4 Ml Syringe) 40 mg SUBCUT Q24H [facility] Last Admin: 03/25/22 20:56 Dose: 40 mg Folic Acid (Folic Acid 1 Mg Tablet) 10 mg PO DAILY [facility] Last Admin: 03/26/22 07:33 Dose: 10 mg Cefepime HCl 2 gm/ Sodium (Chloride) 50 mls @ 100 mls/hr IV Q12H [facility] Last Infusion: 03/26/22 11:06 Dose: Infused Vancomycin HCl 1,000 mg/ (Sodium Chloride) 270 mls @ 270 mls/hr IV Q24H [facility] Last Infusion: 03/25/22 21:20 Dose: Infused Levothyroxine Sodium (Levothyroxine Sodium 50 Mcg Tablet) 50 mcg PO DAILY [facility] Last Admin: 03/26/22 07:32 Dose: 50 mcg Melatonin (Melatonin 3 Mg Tablet) 6 mg PO BEDTIME PRN PRN Reason: Insomnia Metoprolol Tartrate (Metoprolol Tartrate 25 Mg Tablet) 25 mg PO BID [facility] Last Admin: 03/26/22 07:32 Dose: 25 mg Morphine Sulfate (Morphine Sulfate 2 Mg/Ml Cartridge) 2 mg IVPUSH Q4H PRN; Protocol PRN Reason: Pain, Severe (Pain Scale 7-10) Last Admin: 03/26/22 03:29 Dose: 2 mg Non-Formulary Medication (Alergot Gotas Oftamicas) 1 drop EYE-BOTH BID [facility] Non-Formulary Medication (Lagrioltol Gotas Oftamicas) 1 drop EYE-BOTH BID [facility] Omeprazole (Omeprazole 20 Mg Capsule.Dr) 20 mg PO DAILY@0630 [facility] Last Admin: 03/26/22 06:12 Dose: 20 mg Ondansetron HCl (Ondansetron Hcl 4 Mg/2 Ml Vial) 4 mg IVPUSH Q8H PRN PRN Reason: Nausea and Vomiting Pharmacy Consult (Consult Rx Vancomycin Dosing) 1 each MISCELLANE DAILY PRN PRN Reason: Consult order Prednisone (Prednisone 5 Mg Tablet) 5 mg PO DAILY [facility] Last Admin: 03/26/22 07:33 Dose: 5 mg Quetiapine Fumarate (Quetiapine Fumarate 25 Mg Tablet) 12.5 mg PO DAILY [facility] Last Admin: 03/26/22 07:32 Dose: 12.5 mg Sodium Chloride (0.9 % Sodium Chloride Flush 3 Ml Syringe) 3 ml IVFLUSH QSHIFT [facility] Last Admin: 03/26/22 07:32 Dose: 3 ml Home Medications Medication Instructions Recorded Confirmed Last Taken Type Alergot Martinez Gan 1 drp ophthalmic (eye) BID 03/24/22 03/24/22 03/23/22 History Biotalol 5 mg PO DAILY 03/24/22 03/24/22 03/23/22 History Lagrioltol Martinez Gan 1 drp ophthalmic (eye) BID 03/24/22 03/24/22 03/23/22 History ascorbic acid (vitamin C) 500 mg 500 mg PO DAILY 03/24/22 03/24/22 03/23/22 History tablet (Vitamin C) folic acid 1 mg tablet 10 mg PO DAILY 03/24/22 03/24/22 03/23/22 History levothyroxine 50 mcg tablet 50 mcg PO DAILY 03/24/22 03/24/22 03/24/22 History (Euthyrox) methotrexate sodium 2.5 mg tablet 2.5 mg PO TU@0900 03/24/22 03/24/22 Unknown History methotrexate sodium 2.5 mg tablet 5 mg PO MO@0900 03/24/22 03/24/22 Unknown History mycophenolate mofetil 500 mg tablet 500 mg PO BID 03/24/22 03/24/22 03/23/22 History pantoprazole 40 mg tablet,delayed 40 mg PO DAILY@0630 03/24/22 03/24/22 03/23/22 History release prednisone 5 mg tablet 5 mg PO DAILY 03/24/22 03/24/22 03/23/22 History quetiapine 25 mg tablet 12.5 mg PO DAILY 03/24/22 03/24/22 03/23/22 History Physical Exam Vital Signs: Vital Signs: Last Vital Signs Temp 98.0 F 03/26/22 15:05 Pulse 89 03/26/22 15:05 Resp 18 03/26/22 15:05 BP 135/69 03/26/22 15:05 Pulse Ox 96 03/26/22 15:05 O2 Del Method 03/26/22 15:05 BMI result Body Mass Index 30.1 Const: General: cooperative HEENT: Head: Yes normal to inspection Face and sinus: Yes normal facial exam Mouth: Normal oral and palatal mucosa present Teeth and gingiva: dentition normal Eyes: General: appearance normal, both eyes and all related structures Pupils: Equal, round and reactive pupils present Resp: Effort & Inspection: normal respiratory effort Cardio: Rate: regular rate Rhythm: regular rhythm GI: Palpation (GI): Soft to palpation and nontender : General: Yes no CVA tenderness Back/Spine/Pelvis: Back: no CVA tenderness Skin: General skin exam: no rashes or lesions noted Neuro: General: moves all extremities Cranial nerves: Yes Equal, round and reactive pupils present Extrem: Other: lateral raised blister appearing area redness to toe and dorsum of foot Psych: Appearance: grossly normal Results Labs 03/26/22 06:12 03/26/22 06:12 Labs: Short CBC 03/26/22 Range/Units 06:12 WBC 15.0 H (4.8-10.8) X10*3/uL Hgb 11.3 L (12.0-16.0) g/dl Hct 36.1 L (37.0-47.0) % Plt Count 149 L (160-400) X10*3/uL BMP 03/26/22 06:12 Sodium 135 Potassium 3.9 Chloride 106 Carbon Dioxide 23 BUN 11 Creatinine 0.85 Calcium 8.1 L Microbiology Microbiology Results: Microbiology 03/24/22 17:27 Blood - Venous Blood Culture - Preliminary No growth after 24 hours. 03/24/22 17:24 Blood - Venous Blood Culture - Preliminary No growth after 24 hours. Assessment and Plan (1) Osteomyelitis: Status: Acute There may be early osteomyelitis in addition to cellulitis. She doesnt have specific organism. There is concern over gram negatives with water exposure. Plan Continue current antibiotics. Await any cultures. See Vascular evaluate for any surgical issues or drain abscess. Likely she will leave on 3-6 weeks IV antibiotics,probably Ertapenem daily Time Spent With Patient Time: Total time managing care of this patient today ____ minutes.
[2022-03-26 15:54] LABS: Vancomycin Random 4.6 mcg/mL (15-20)
[2022-03-26] MEDS: vancomycin HCL 750 MG in 0.9 % Sodium Chloride 250 ML 265 MG IV (17:22)
[2022-03-26] MEDS: Acetaminophen 325 MG TABLET 650 MG PO (18:02)
[2022-03-26 19:10] VITALS: BP 119/67; PULSE 90; RESP 18; TEMP 37; O2SAT 100
[2022-03-26] MEDS: Enoxaparin Sodium 40 MG/0.4 ML SYRINGE SUBCUT (21:22)
[2022-03-27 03:11] VITALS: BP 131/65; PULSE 75; RESP 16; TEMP 36.9; O2SAT 95
[2022-03-27] MEDS: vancomycin HCL 750 MG in 0.9 % Sodium Chloride 250 ML 265 MG IV (04:34)
[2022-03-27] MEDS: Omeprazole 20 MG CAPSULE.DR PO (05:38)
[2022-03-27 06:33] LABS: MANUAL DIFF FLAG NO
[2022-03-27 06:36] LABS: Basophils Percent Auto 0.3 % (0-2); Eosinophils Absolute Auto 0.3 X10*3/uL (0.0-0.4); Eosinophils Percent Auto 3.3 % (0-4); Hemoglobin 11.5 g/dl (12.0-16.0); Imm Gran Abs Auto 0.04 X10*3/uL (0.00-0.03); Imm Gran Pct Auto 0.4 % (0.0-0.4); Lymphocytes Absolute Auto 1.3 X10*3/uL (1.2-4.9); Lymphocytes Percent Auto 12.8 % (20-40); Mean Corpuscular HGB Conc 31.9 g/dl (31.0-35.0); Mean Corpuscular Hemoglobin 29.1 pg (27.0-33.0); Mean Corpuscular Volume 91.1 fL (80.0-98.0); Mean Platelet Volume 12.2 fL (9.4-12.3); Monocytes Absolute Auto 1.3 X10*3/uL (0.1-1.2); Monocytes Percent Auto 13.3 % (2-11); Neutrophils Percent Auto 69.9 % (45-73); Platelet Count 171 X10*3/uL (160-400); Red Blood Count 3.95 X10*6/uL (4.20-5.50); Red Cell Distribution Width 13.7 % (11.0-16.0); White Blood Count 10.1 X10*3/uL (4.8-10.8)
[2022-03-27 07:01] LABS: Anion Gap 12 (12-20); Blood Urea Nitrogen 15 mg/dL (9-16); Carbon Dioxide 22 mmol/L (22-29); Chloride 108 mmol/L (96-108); Creatinine Clr Calc Pharmacy 64.3; Estimated Glomerular Filt Rate > 60; Glucose Random 98 mg/dL (60-115); Sodium 138 mmol/L (135-145)
[2022-03-27] MEDS: Ascorbic Acid 500 MG TABLET PO (08:32)
[2022-03-27] MEDS: Levothyroxine Sodium 50 MCG TABLET PO (08:32)
[2022-03-27] MEDS: Metoprolol Tartrate 25 MG TABLET PO ×2 (08:33→21:18)
[2022-03-27] MEDS: predniSONE 5 MG TABLET PO (08:33)
[2022-03-27] MEDS: QUEtiapine Fumarate 25 MG TABLET 12.5 MG PO (08:34)
--- NOTE | 2022-03-27 09:07 | P.CONGS_ITS ---
History of Present Illness Consult details Consult date: 03/27/22 Narrative: Very pleasant 66-year-old female presents for evaluation regarding nonhealing right great toe ulcer. It began as a blister several weeks prior. It has become quite painful. It is noted to be on the left great toe. Of note she has quit smoking in 2016 and has a history of 40 years of smoking. She is a nondi abetic. She now presents to us for vascular evaluation. Review of Systems Review of Systems: Yes all other systems are reviewed and are negative Constitutional: Constitutional: Reports no additional constitutional complaints ENT: Reports Normal hearing present Cardiovascular: Cardiovascular: Denies chest pain, Denies chest pain at rest, Denies chest pain with activity and Denies pedal edema Respiratory: Respiratory: Denies cough Gastrointestinal: Gastrointestinal: Denies abdominal pain Musculoskeletal: Musculoskeletal: Denies abnormal gait, Denies muscle cramps and Denies radiating pain into limb Integumentary/Breasts: Skin/Breast: Denies skin ulcer and Denies wounds Neurologic: Reports Normal hearing present and Denies abnormal gait Psychiatric: Psychiatric: Reports no additional psychiatric complaints PMFSH Past Medical History Medical History Jeff's thyroiditis Pemphigus vulgaris Family History Family History Mother Diabetes Family history: reviewed and not pertinent Social History Social History Household Members: Spouse Alcohol intake: never Patient Tobacco Use Status: Former Tobacco user Smoked in Last 30 Days: No e-Cigarette/Vaping Use: Never Used Use of substances other than those prescribed or required for medical reasons: No Currently Displaying Signs/Symptoms of Drug Intoxication Withdrawal: No Have you been hit, kicked, punched, or otherwise hurt by someone within the past year? If so, by whom?: No Do you feel safe in your current relationship?: Yes Is there a partner from a previous relationship who is making you feel unsafe now?: No Are you made to feel afraid or neglected: No Advance Directives: No Advance Directives Information Provided: No Do you have thoughts of harming others: None Do you have a plan to hurt others: No Plan How much weight loss: Not applicable Eating poorly because of decreased appetite: No Nutrition Risks: No Nutritional Risk Patient : No : No Poor oral hygiene: No service: No Current occupational status: retired [employer] Allergies Allergy/AdvReac Type Severity Reaction Status Date / Time No Known Allergies Allergy Verified 03/24/22 13:19 Active Medications: Current Medications Acetaminophen (Acetaminophen 325 Mg Tablet) 650 mg PO Q6H PRN PRN Reason: Pain, Mild (Pain Scale 1-3) Last Admin: 03/26/22 18:02 Dose: 650 mg Ascorbic Acid (Ascorbic Acid 500 Mg Tablet) 500 mg PO DAILY [facility] Last Admin: 03/27/22 08:32 Dose: 500 mg Enoxaparin Sodium (Enoxaparin Sodium 40 Mg/0.4 Ml Syringe) 40 mg SUBCUT Q24H [facility] Last Admin: 03/26/22 21:22 Dose: 40 mg Folic Acid (Folic Acid 1 Mg Tablet) 10 mg PO DAILY [facility] Last Admin: 03/26/22 07:33 Dose: 10 mg Cefepime HCl 2 gm/ Sodium (Chloride) 50 mls @ 100 mls/hr IV Q12H [facility] Last Infusion: 03/26/22 22:10 Dose: Infused Vancomycin HCl 750 mg/ Sodium (Chloride) 265 mls @ 265 mls/hr IV Q12H [facility] Last Infusion: 03/27/22 05:41 Dose: Infused Levothyroxine Sodium (Levothyroxine Sodium 50 Mcg Tablet) 50 mcg PO DAILY [facility] Last Admin: 03/27/22 08:32 Dose: 50 mcg Melatonin (Melatonin 3 Mg Tablet) 6 mg PO BEDTIME PRN PRN Reason: Insomnia Metoprolol Tartrate (Metoprolol Tartrate 25 Mg Tablet) 25 mg PO BID [facility] Last Admin: 03/27/22 08:33 Dose: 25 mg Morphine Sulfate (Morphine Sulfate 2 Mg/Ml Cartridge) 2 mg IVPUSH Q4H PRN; Protocol PRN Reason: Pain, Severe (Pain Scale 7-10) Last Admin: 03/26/22 23:59 Dose: 2 mg Non-Formulary Medication (Alergot Gotas Oftamicas) 1 drop EYE-BOTH BID [facility] Non-Formulary Medication (Lagrioltol Gotas Oftamicas) 1 drop EYE-BOTH BID [facility] Omeprazole (Omeprazole 20 Mg Capsule.Dr) 20 mg PO DAILY@0630 [facility] Last Admin: 03/27/22 05:38 Dose: 20 mg Ondansetron HCl (Ondansetron Hcl 4 Mg/2 Ml Vial) 4 mg IVPUSH Q8H PRN PRN Reason: Nausea and Vomiting Pharmacy Consult (Consult Rx Vancomycin Dosing) 1 each MISCELLANE DAILY PRN PRN Reason: Consult order Prednisone (Prednisone 5 Mg Tablet) 5 mg PO DAILY [facility] Last Admin: 03/27/22 08:33 Dose: 5 mg Quetiapine Fumarate (Quetiapine Fumarate 25 Mg Tablet) 12.5 mg PO DAILY [facility] Last Admin: 03/27/22 08:34 Dose: 12.5 mg Sodium Chloride (0.9 % Sodium Chloride Flush 3 Ml Syringe) 3 ml IVFLUSH QSHIFT [facility] Last Admin: 03/26/22 21:23 Dose: 3 ml Home Medications Medication Instructions Recorded Confirmed Last Taken Type Radhargothom Gan 1 drp ophthalmic (eye) BID 03/24/22 03/24/22 03/23/22 History Biotalol 5 mg PO DAILY 03/24/22 03/24/22 03/23/22 History Lagrioltol Martinez Gan 1 drp ophthalmic (eye) BID 03/24/22 03/24/22 03/23/22 History ascorbic acid (vitamin C) 500 mg 500 mg PO DAILY 03/24/22 03/24/22 03/23/22 History tablet (Vitamin C) folic acid 1 mg tablet 10 mg PO DAILY 03/24/22 03/24/22 03/23/22 History levothyroxine 50 mcg tablet 50 mcg PO DAILY 03/24/22 03/24/22 03/24/22 History (Euthyrox) methotrexate sodium 2.5 mg tablet 2.5 mg PO TU@0900 03/24/22 03/24/22 Unknown History methotrexate sodium 2.5 mg tablet 5 mg PO MO@0900 03/24/22 03/24/22 Unknown History mycophenolate mofetil 500 mg tablet 500 mg PO BID 03/24/22 03/24/22 03/23/22 History pantoprazole 40 mg tablet,delayed 40 mg PO DAILY@0630 03/24/22 03/24/22 03/23/22 History release prednisone 5 mg tablet 5 mg PO DAILY 03/24/22 03/24/22 03/23/22 History quetiapine 25 mg tablet 12.5 mg PO DAILY 03/24/22 03/24/22 03/23/22 History Physical Exam Vital Signs: Vital Signs: Last Vital Signs Temp 98.4 F 03/27/22 03:11 Pulse 75 03/27/22 03:11 Resp 16 03/27/22 03:11 BP 131/65 03/27/22 03:11 Pulse Ox 95 03/27/22 03:11 O2 Del Method 03/27/22 03:11 BMI result Body Mass Index 30.1 Const: General: cooperative, healthy appearing and comfortable Orientation/consciousness: oriented to person, oriented to place and oriented to time HEENT: Head: Yes normal to inspection Neck: Neck: Yes normal visual inspection Carotids: no bruits Chest: Chest palpation & inspection: normal inspection of the chest Resp: Effort & Inspection: normal respiratory effort and able to speak in complete sentences Auscultation: clear to auscultation bilaterally, no crackles, no rales, no rhonchi and no wheezes Cardio: Rate: regular rate Rhythm: regular rhythm Heart sounds: S1 normal heart sound present and S2 normal heart sound present Bruits: no carotid bruits Peripheral pulses: Peripheral pulses 2+ throughout GI: Inspection: Yes normal to inspection Skin: Other: Left great toe lateral blister Wounds: wounds noted Hair: normal Neuro: General: oriented to person, oriented to place and oriented to time Cranial nerves: Yes CN's II-XII intact bilaterally and Yes Normal hearing present Cognition (Neuro): normal cognition Motor exam (neuro): 5/5 motor strength present throughout Extrem: Other: venous exam: No significant superficial varicosities or spider telangiectasias, minimal edema General: No clubbing, No cyanosis and No edema Psych: Appearance: grossly normal Mental Status: mental status grossly normal Speech and movement: Normal speech and movement present Results Labs 03/27/22 06:10 03/27/22 06:10 Labs: Abnormal lab results 03/26/22 03/27/22 03/27/22 Range/Units 15:25 06:10 06:10 RBC 3.95 L (4.20-5.50) X10*6/uL Hgb 11.5 L (12.0-16.0) g/dl Hct 36.0 L (37.0-47.0) % Lymph % (Auto) 12.8 L (20-40) % [place] % (Auto) 13.3 H (2-11) % [place] # (Auto) 1.3 H (0.1-1.2) X10*3/uL Abs Immat Gran (auto) 0.04 H (0.00-0.03) X10*3/uL Calcium 8.0 L (8.4-10.2) mg/dL Random Vancomycin 4.6 L (15-20) mcg/mL Short CBC 03/27/22 Range/Units 06:10 WBC 10.1 (4.8-10.8) X10*3/uL Hgb 11.5 L (12.0-16.0) g/dl Hct 36.0 L (37.0-47.0) % Plt Count 171 (160-400) X10*3/uL BMP 03/27/22 06:10 Sodium 138 Potassium 4.0 Chloride 108 Carbon Dioxide 22 BUN 15 Creatinine 0.75 Calcium 8.0 L All other labs normal. Assessment and Plan (1) PAD (peripheral artery disease): Status: Acute Plan In short patient has this nonhealing left great toe. At the time of my exam she was actually had a down for a PICC for long-term IV antibiotics. I was able to appreciate a faint pulse but I have taken the liberty of ordering noninvasive arterial testing to better rule that out. I did have a discussion with the patient's family daughter and who were at bedside. We will continue to follow this patient with you. Thank you for allowing us to assist in this patient's care. If there are any questions or concerns please do not hesitate to contact us Time Spent With Patient Time: Total time managing care of this patient today ____ minutes. Procedures Date of Service Date of Service: 03/27/22
--- NOTE | 2022-03-27 11:28 | P.PICC_ITS ---
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 Following completion of Mills Protocol the skin and soft tissues were anesthetized with 1% Lidocaine plain. Using ultrasound guidance, right basilic vein access was obtained twice by Iman Jenkins RN, but unable to pass guidewire. Right brachial vein was attempted by Elie Barnes RN without success. Right basilic vein access was then obtained by Elie Barnes RN. Over an 0.018 wire through peel-away sheath, a 4FR single lumen PASV PICC line was positioned. Catheter length is 38 CM internal length, 0 CM external length, for a total trimmed length of 38 CM. The procedure was performed in S272. Tip verification was performed by Rosita Rosenthal with Sherlock 3CG. Tip located in SVC. Ultrasound was used to document vein patency and for needle entry. A formal u ltrasound picture and cardiac rhythm strip was recorded. [employer] has released the line for use and it is currently dressed with a StatLock, Tegaderm, and CHG disc. Verification has been performed for blood return and line patency. Arm Circumference: 34 CM Equipment: [employer] PICC Solo Catheter Type: 4FR Single Lumen PASV PICC Lot #: [id number]
[2022-03-27] MEDS: Folic Acid 1 MG TABLET 10 MG PO (11:50)
[2022-03-27] MEDS: cefEPime HCl 2 GM in 0.9 % Sodium Chloride 50 ML IV ×2 (11:51→21:19)
--- NOTE | 2022-03-27 12:27 | HO.PM.IMPN ---
Subjective Subjective Date of Service: 03/27/22 Interval History: seen and examined this morning follow up for left foot infection patient reports ongoing pain in left great toe/foot and worsening of swelling no fever Review of Systems Review of Systems: Yes all other systems are reviewed and are negative Constitutional Constitutional: Denies chills and Denies fever(s) Cardiovascular Cardiovascular: Denies chest pain, Denies palpitations and Denies dyspnea Respiratory Respiratory: Denies cough and Denies dyspnea Endocrine Endocrine: Denies palpitations Physical Exam Vital Signs: Vital Signs: Last Vital Signs Temp 98.4 F 03/27/22 03:11 Pulse 75 03/27/22 03:11 Resp 16 03/27/22 03:11 BP 131/65 03/27/22 03:11 Pulse Ox 95 03/27/22 03:11 O2 Del Method 03/27/22 03:11 BMI result Body Mass Index 30.1 Const: General: cooperative, comfortable, alert and awake Nutritional Appearance: average body habitus Resp: Effort & Inspection: normal respiratory effort, able to speak in complete sentences, no respiratory distress and no use of accessory muscles Cardio: Rate: regular rate GI: Inspection: No distended Palpation (GI): Soft to palpation Skin: Other: left foot Neuro: General: CN's II-XI intact bilaterally Extrem: Other: +DP pulse Objective Data Active Medications Acetaminophen (Acetaminophen 325 Mg Tablet) 650 mg PO Q6H PRN PRN Reason: Pain, Mild (Pain Scale 1-3) Last Admin: 03/26/22 18:02 Dose: 650 mg Documented By: LAY Ascorbic Acid (Ascorbic Acid 500 Mg Tablet) 500 mg PO DAILY [facility] Last Admin: 03/27/22 08:32 Dose: 500 mg Documented By: HERVE Enoxaparin Sodium (Enoxaparin Sodium 40 Mg/0.4 Ml Syringe) 40 mg SUBCUT Q24H [facility] Last Admin: 03/26/22 21:22 Dose: 40 mg Documented By: LUANNE Folic Acid (Folic Acid 1 Mg Tablet) 10 mg PO DAILY [facility] Last Admin: 03/27/22 11:50 Dose: 10 mg Documented By: HERVE Cefepime HCl 2 gm/ Sodium (Chloride) 50 mls @ 100 mls/hr IV Q12H [facility] Last Admin: 03/27/22 11:51 Dose: 100 mls/hr Documented By: HERVE Vancomycin HCl 750 mg/ Sodium (Chloride) 265 mls @ 265 mls/hr IV Q12H [facility] Last Infusion: 03/27/22 05:41 Dose: 0 mls/hr Documented By: LUANNE Levothyroxine Sodium (Levothyroxine Sodium 50 Mcg Tablet) 50 mcg PO DAILY [facility] Last Admin: 03/27/22 08:32 Dose: 50 mcg Documented By: HERVE Melatonin (Melatonin 3 Mg Tablet) 6 mg PO BEDTIME PRN PRN Reason: Insomnia Metoprolol Tartrate (Metoprolol Tartrate 25 Mg Tablet) 25 mg PO BID [facility] Last Admin: 03/27/22 08:33 Dose: 25 mg Documented By: HERVE Morphine Sulfate (Morphine Sulfate 2 Mg/Ml Cartridge) 2 mg IVPUSH Q4H PRN; Protocol PRN Reason: Pain, Severe (Pain Scale 7-10) Last Admin: 03/26/22 23:59 Dose: 2 mg Documented By: LUANNE Non-Formulary Medication (Alergot Gotas Oftamicas) 1 drop EYE-BOTH BID [facility] Non-Formulary Medication (Lagrioltol Gotas Oftamicas) 1 drop EYE-BOTH BID [facility] Omeprazole (Omeprazole 20 Mg Capsule.Dr) 20 mg PO DAILY@0630 [facility] Last Admin: 03/27/22 05:38 Dose: 20 mg Documented By: LUANNE Ondansetron HCl (Ondansetron Hcl 4 Mg/2 Ml Vial) 4 mg IVPUSH Q8H PRN PRN Reason: Nausea and Vomiting Pharmacy Consult (Consult Rx Vancomycin Dosing) 1 each MISCELLANE DAILY PRN PRN Reason: Consult order Prednisone (Prednisone 5 Mg Tablet) 5 mg PO DAILY [facility] Last Admin: 03/27/22 08:33 Dose: 5 mg Documented By: HERVE Quetiapine Fumarate (Quetiapine Fumarate 25 Mg Tablet) 12.5 mg PO DAILY [facility] Last Admin: 03/27/22 08:34 Dose: 12.5 mg Documented By: HERVE Sodium Chloride (0.9 % Sodium Chloride Flush 3 Ml Syringe) 3 ml IVFLUSH QSHIFT [facility] Last Admin: 03/27/22 10:38 Dose: Not Given Documented By: HO.SOLISPE Non-Admin Reason: Previously Administered Sodium Chloride (0.9 % Sodium Chloride Flush 10 Ml Syringe) 5 ml IVFLUSH TID CARMELO Labs 03/27/22 06:10 03/27/22 06:10 Labs: Laboratory Results - last 24 hr 03/26/22 03/27/22 03/27/22 15:25 06:10 06:10 MCV 91.1 MCH 29.1 MCHC 31.9 RDW 13.7 Plt Count 171 MPV 12.2 Immature Gran % (Auto) 0.4 Neut % (Auto) 69.9 Lymph % (Auto) 12.8 L [place] % (Auto) 13.3 H Eos % (Auto) 3.3 Baso % (Auto) 0.3 Lymph # (Auto) 1.3 [place] # (Auto) 1.3 H Eos # (Auto) 0.3 Baso # (Auto) 0.0 Abs Immat Gran (auto) 0.04 H Absolute Neuts (auto) 7.0 Absolute Nucleated RBC 0.000 Nucleated RBC % (auto) 0.0 Anion Gap 12 Estim Creat Clear Calc 64.3 Estimated GFR > 60 Random Glucose 98 Calcium 8.0 L Random Vancomycin 4.6 L Microbiology Microbiology Results: Microbiology 03/24/22 17:27 Blood Culture - Preliminary Blood - Venous No growth after 48 hours. 03/24/22 17:24 Blood Culture - Preliminary Blood - Venous No growth after 48 hours. Assessment and Plan (1) Cellulitis: Status: Acute Plan 66 year old female with history of pemphigus vulgaris on chronic prednisone and methotrexate and chang's thyroiditis admitted for acute osteomyelitis of the left great toe. #Acute osteomyelitis/cellulitis L great toe MRI showing possible early osteomyelitis distal phalanx left great toe leukocytosis resolved but swelling, erythema worsening continue IV vanco and cefepime, will add flagyl for better aerobic coverage seen by ID, recommend vascular eval Seen by vascular, noninvasive arterial testing ordered PICC line placed 2/2 Blood cultures negative to date # pemphigus vulgaris -Hold methotrexate and mycophenolate at this time due to infection. Continue prednisone #Chang's -Continue levothyroxine DVT prophylaxis-Lovenox Full code attending - dr. peñaloza Requires ongoing inpatient stay for management of acute osteomyelitis/cellulitis requiring IV antibiotics and expert consultation Time Spent With Patient Time: Total time managing care of this patient today ____ minutes. Quality Stroke Does the patient have a stroke diagnosis?: No VTE Prior VTE?: No VTE Risk Level:: Medical - moderate - high VTE Device Contraindication: Treatment Not Indicated VTE Drug Contraindication: N/A - Med Ordered
[2022-03-27] MEDS: metroNIDAZOLE/NS 500 MG/100 ML PIGGYBACK 100 MG IV ×2 (13:40→18:46)
[2022-03-27 15:31] VITALS: BP 146/70; PULSE 92; RESP 17; TEMP 36.9; O2SAT 95
[2022-03-27 15:54] LABS: Vancomycin Random 8.9 mcg/mL (15-20)
--- NOTE | 2022-03-27 16:05 | HE.PHANOTE ---
Increasing vanco dose to 1000 mg q12 predicted auc is 474, trough early, if cr continues to improve, may need to increase to 1250 mg q12
[2022-03-27] MEDS: 0.9 % Sodium Chloride Flush 10 ML SYRINGE 5 ML IVFLUSH ×2 (16:23→21:20)
[2022-03-27] MEDS: vancomycin HCL 1,000 MG in 0.9 % Sodium Chloride 250 ML 270 MG IV (16:24)
[2022-03-27 19:56] VITALS: BP 125/79; PULSE 100; RESP 17; TEMP 36.1; O2SAT 97
[2022-03-27] MEDS: Enoxaparin Sodium 40 MG/0.4 ML SYRINGE SUBCUT (21:18)
[2022-03-27] MEDS: 0.9 % Sodium Chloride Flush 3 ML SYRINGE IVFLUSH (21:19)
[2022-03-27] MEDS: Acetaminophen 325 MG TABLET 650 MG PO (21:21)
[2022-03-28] MEDS: metroNIDAZOLE/NS 500 MG/100 ML PIGGYBACK 100 MG IV ×4 (00:55→19:17)
[2022-03-28] MEDS: Morphine Sulfate 2 MG/ML CARTRIDGE IVPUSH (00:57)
[2022-03-28 04:00] VITALS: BP 137/72; PULSE 81; RESP 16; TEMP 36.1; O2SAT 96
[2022-03-28] MEDS: vancomycin HCL 1,000 MG in 0.9 % Sodium Chloride 250 ML 270 MG IV ×2 (04:13→14:54)
[2022-03-28] MEDS: Omeprazole 20 MG CAPSULE.DR PO (05:52)
[2022-03-28 07:07] LABS: Creatinine Clr Calc Pharmacy 61.9; Estimated Glomerular Filt Rate > 60
[2022-03-28] MEDS: predniSONE 5 MG TABLET PO (07:40)
[2022-03-28] MEDS: Metoprolol Tartrate 25 MG TABLET PO ×2 (07:40→20:28)
[2022-03-28] MEDS: 0.9 % Sodium Chloride Flush 3 ML SYRINGE IVFLUSH ×3 (07:40→21:30)
[2022-03-28] MEDS: Folic Acid 1 MG TABLET 10 MG PO (07:41)
[2022-03-28] MEDS: Ascorbic Acid 500 MG TABLET PO (07:41)
[2022-03-28] MEDS: Levothyroxine Sodium 50 MCG TABLET PO (07:41)
[2022-03-28] MEDS: ondansetron HCL 4 MG/2 ML VIAL IVPUSH (07:46)
[2022-03-28] MEDS: Acetaminophen 325 MG TABLET 650 MG PO (07:50)
[2022-03-28 08:00] VITALS: BP 151/78; PULSE 85; RESP 18; TEMP 36; O2SAT 98
[2022-03-28] MEDS: cefEPime HCl 2 GM in 0.9 % Sodium Chloride 50 ML IV ×2 (08:29→21:29)
[2022-03-28] MEDS: QUEtiapine Fumarate 25 MG TABLET 12.5 MG PO (08:30)
--- NOTE | 2022-03-28 10:40 | HO.VASCPN ---
Subjective Subjective Date of Service: 03/28/22 Patient reports: no new complaints and feels better Interval history: Very pleasant 66-year-old female presents for follow-up regarding left great toe blister. Of note she has had noninvasive arterial testing. Reports doing fairly well. No other interval issues. Physical Exam Vital Signs: Vital Signs: Last Vital Signs Temp 96.8 F 03/28/22 08:00 Pulse 85 03/28/22 08:00 Resp 18 03/28/22 08:00 BP 151/78 H 03/28/22 08:00 Pulse Ox 98 03/28/22 08:00 O2 Del Method 03/28/22 08:00 BMI result Body Mass Index 30.1 Const: General: cooperative, healthy appearing and no acute distress Orientation/consciousness: oriented to person, oriented to place and oriented to time HEENT: Head: Yes normal to inspection Neck: Carotids: no bruits Chest: Chest palpation & inspection: normal inspection of the chest Resp: Effort & Inspection: normal respiratory effort and able to speak in complete sentences Auscultation: clear to auscultation bilaterally Cardio: Rate: regular rate Heart sounds: S1 normal heart sound present and S2 normal heart sound present Peripheral pulses: dorsalis pedis present (Bilateral palpable DP) GI: Inspection: Yes normal to inspection Skin: Other: Great toe blister un roofed; purulence fluid expressed. Clean dressing placed. General skin exam: no rashes or lesions noted Wounds: no wounds Neuro: General: oriented to person, oriented to place, oriented to time and CN's II-XI intact bilaterally Extrem: General: Yes normal to inspection, Yes full ROM and Yes no clubbing, cyanosis or edema Psych: Appearance: grossly normal and well kempt Speech and movement: Normal speech and movement present Affect: normal affect Progress Note: A&P Assessment and plan (1) PAD (peripheral artery disease): Status: Acute Assessment and Plan: In short patient has left great toe blister which was unroofed. Unclear as to the exact depth of this, but overall significant improvement. Cellulitis is down as well. Will continue with local wound care and antibiotics per Infectious Disease. Noninvasive arterial testing was reviewed and appears to be within normal limits. Stable from my perspective for discharge. Upon discharge he can see me in approximately 2 weeks time. Thank you for allowing us to assist in her care. If there are any questions or concerns please do not hesitate to contact us. Time Spent With Patient Time: Total time managing care of this patient today ____ minutes. Procedures Date of Service Date of Service: 03/28/22 Quality Stroke Does the patient have a stroke diagnosis?: No VTE Prior VTE?: No VTE Risk Level:: Medical - moderate - high VTE Device Contraindication: Treatment Not Indicated VTE Drug Contraindication: N/A - Med Ordered
--- NOTE | 2022-03-28 12:53 | MHC.CM.PN ---
REFERRAL TO [facility]. PATIENT HAS NO PCP BUT T/W TO ASK IF THEY CAN OFFER RN SKILLS WELL. CURRENTLY AWAITING FINAL MED NEEDS. NO DC THIS WEEKEND
--- NOTE | 2022-03-28 14:11 | P.PNIM_ITS ---
Subjective Subjective Date of Service: 03/28/22 Interval History: seen and examined this morning follow up for left foot infection left foot blister opened by surgery this am patient denies fever, pain controlled Review of Systems Review of Systems: Yes all other systems are reviewed and are negative Constitutional Constitutional: Reports chills and Denies fever(s) Cardiovascular Cardiovascular: Denies chest pain, Denies palpitations and Denies dyspnea Respiratory Respiratory: Denies cough and Denies dyspnea Gastrointestinal Gastrointestinal: Denies abdominal pain, Denies nausea and Denies vomiting Endocrine Endocrine: Denies palpitations Physical Exam Vital Signs: Vital Signs: Last Vital Signs Temp 96.8 F 03/28/22 08:00 Pulse 85 03/28/22 08:00 Resp 18 03/28/22 08:00 BP 151/78 H 03/28/22 08:00 Pulse Ox 98 03/28/22 08:00 O2 Del Method 03/28/22 08:00 BMI result Body Mass Index 30.1 Const: General: cooperative, comfortable, alert and awake Nutritional Appearance: average body habitus Resp: Effort & Inspection: normal respiratory effort, able to speak in complete sentences, no respiratory distress and no use of accessory muscles Cardio: Rate: regular rate GI: Inspection: No distended Palpation (GI): Soft to palpation Skin: Other: left foot - blister unroofed by surgery this am with some purulent material expressed Neuro: General: CN's II-XI intact bilaterally Extrem: Other: +DP pulse Objective Data Active Medications Acetaminophen (Acetaminophen 325 Mg Tablet) 650 mg PO Q6H PRN PRN Reason: Pain, Mild (Pain Scale 1-3) Last Admin: 03/28/22 07:50 Dose: 650 mg Documented By: CARLEEN Ascorbic Acid (Ascorbic Acid 500 Mg Tablet) 500 mg PO DAILY [facility] Last Admin: 03/28/22 07:41 Dose: 500 mg Documented By: CARLEEN Enoxaparin Sodium (Enoxaparin Sodium 40 Mg/0.4 Ml Syringe) 40 mg SUBCUT Q24H [facility] Last Admin: 03/27/22 21:18 Dose: 40 mg Documented By: OLIVAORALB Folic Acid (Folic Acid 1 Mg Tablet) 10 mg PO DAILY [facility] Last Admin: 03/28/22 07:41 Dose: 10 mg Documented By: CARLEEN Cefepime HCl 2 gm/ Sodium (Chloride) 50 mls @ 100 mls/hr IV Q12H [facility] Last Infusion: 03/28/22 09:18 Dose: 0 mls/hr Documented By: CARLEEN Metronidazole (Flagyl) 500 mg in 100 mls @ 100 mls/hr IV Q6H [facility] Last Infusion: 03/28/22 14:04 Dose: 0 mls/hr Documented By: CARLEEN Vancomycin HCl 1,000 mg/ (Sodium Chloride) 270 mls @ 270 mls/hr IV Q12H [facility] Last Infusion: 03/28/22 05:30 Dose: 0 mls/hr Documented By: LUANNE Levothyroxine Sodium (Levothyroxine Sodium 50 Mcg Tablet) 50 mcg PO DAILY [facility] Last Admin: 03/28/22 07:41 Dose: 50 mcg Documented By: CARLEEN Melatonin (Melatonin 3 Mg Tablet) 6 mg PO BEDTIME PRN PRN Reason: Insomnia Metoprolol Tartrate (Metoprolol Tartrate 25 Mg Tablet) 25 mg PO BID [facility] Last Admin: 03/28/22 07:40 Dose: 25 mg Documented By: CARLEEN Morphine Sulfate (Morphine Sulfate 2 Mg/Ml Cartridge) 2 mg IVPUSH Q4H PRN; Protocol PRN Reason: Pain, Severe (Pain Scale 7-10) Last Admin: 03/28/22 00:57 Dose: 2 mg Documented By: LUANNE Non-Formulary Medication (Alergot Gotas Oftamicas) 1 drop EYE-BOTH BID [facility] Non-Formulary Medication (Lagrioltol Gotas Oftamicas) 1 drop EYE-BOTH BID [facility] Omeprazole (Omeprazole 20 Mg Capsule.Dr) 20 mg PO DAILY@0630 [facility] Last Admin: 03/28/22 05:52 Dose: 20 mg Documented By: LUANNE Ondansetron HCl (Ondansetron Hcl 4 Mg/2 Ml Vial) 4 mg IVPUSH Q8H PRN PRN Reason: Nausea and Vomiting Last Admin: 03/28/22 07:46 Dose: 4 mg Documented By: CARLEEN Pharmacy Consult (Consult Rx Vancomycin Dosing) 1 each MISCELLANE DAILY PRN PRN Reason: Consult order Prednisone (Prednisone 5 Mg Tablet) 5 mg PO DAILY [facility] Last Admin: 03/28/22 07:40 Dose: 5 mg Documented By: CARLEEN Quetiapine Fumarate (Quetiapine Fumarate 25 Mg Tablet) 12.5 mg PO DAILY [facility] Last Admin: 03/28/22 08:30 Dose: 12.5 mg Documented By: CARLEEN Sodium Chloride (0.9 % Sodium Chloride Flush 3 Ml Syringe) 3 ml IVFLUSH QSHIFT [facility] Last Admin: 03/28/22 07:40 Dose: 3 ml Documented By: CARLEEN Sodium Chloride (0.9 % Sodium Chloride Flush 10 Ml Syringe) 5 ml IVFLUSH TID [facility] Last Admin: 03/28/22 07:42 Dose: Not Given Documented By: CARLEEN Non-Admin Reason: DUPLICATE Labs 03/27/22 06:10 03/28/22 05:52 Labs: Laboratory Results - last 24 hr 03/27/22 03/28/22 15:27 05:52 Estim Creat Clear Calc 61.9 Estimated GFR > 60 Random Vancomycin 8.9 L Assessment and Plan (1) Cellulitis: Status: Acute Plan 66 year old female with history of pemphigus vulgaris on chronic prednisone and methotrexate and chang's thyroiditis admitted for acute osteomyelitis of the left great toe. cellulitis/abscess L great toe MRI showing possible early osteomyelitis distal phalanx left great toe blister unroofed by surgery this am continue IV vanco and cefepime, flagyl added for better aerobic coverage Seen by vascular, noninvasive arterial testing ordered, no evidence of PAD PICC line placed 2/2 Blood cultures negative to date seen by ID, duration/abx TBD, continue current regimen for now pemphigus vulgaris -Hold methotrexate and mycophenolate at this time due to infection. Continue prednisone Chang's -Continue levothyroxine DVT prophylaxis-Lovenox Full code attending - dr. peñaloza Requires ongoing inpatient stay for management of acute cellulitis requiring IV antibiotics Time Spent With Patient Time: Total time managing care of this patient today ____ minutes. Quality Stroke Does the patient have a stroke diagnosis?: No VTE Prior VTE?: No VTE Risk Level:: Medical - moderate - high VTE Device Contraindication: Treatment Not Indicated VTE Drug Contraindication: N/A - Med Ordered
[2022-03-28] MEDS: 0.9 % Sodium Chloride Flush 10 ML SYRINGE 5 ML IVFLUSH ×2 (15:04→21:30)
[2022-03-28 15:18] LABS: Vancomycin Random 14.2 mcg/mL (15-20)
--- NOTE | 2022-03-28 15:43 | PM.IDPN ---
Subjective Subjective Date of Service: 03/28/22 Critical Care Time (minutes): 15 Comment: she had blister unroofed by surgery and feels better Objective Data Labs 03/27/22 06:10 03/28/22 05:52 Labs: Laboratory Results - last 24 hr 03/27/22 03/28/22 03/28/22 15:27 05:52 14:48 Creatinine 0.78 Estim Creat Clear Calc 61.9 Estimated GFR > 60 Random Vancomycin 8.9 L 14.2 L Microbiology Microbiology Results: Microbiology 03/24/22 17:27 Blood - Venous Blood Culture - Preliminary No growth after 48 hours. 03/24/22 17:24 Blood - Venous Blood Culture - Preliminary No growth after 48 hours. Physical Exam Vital Signs: Vital Signs: Last Vital Signs Temp 96.8 F 03/28/22 08:00 Pulse 85 03/28/22 08:00 Resp 18 03/28/22 08:00 BP 151/78 H 03/28/22 08:00 Pulse Ox 98 03/28/22 08:00 O2 Del Method 03/28/22 08:00 BMI result Body Mass Index 30.1 Resp: Effort & Inspection: normal respiratory effort Cardio: Rate: regular rate Rhythm: regular rhythm Skin: General skin exam: no rashes or lesions noted Extrem: Other: foot improved Assessment and Plan Assessment and plan (1) Osteomyelitis: Problem details: She is immune suppressed and has some improvement Status: Acute Assessment and Plan: Hold immunosuppressants until next week. IV Ertapenem 1-3 weeks outpatient Time Spent With Patient Time: Total time managing care of this patient today ____ minutes.
[2022-03-28 16:00] VITALS: BP 116/57; PULSE 83; RESP 15; TEMP 36.1; O2SAT 97
[2022-03-28 19:57] VITALS: BP 156/66; PULSE 90; RESP 17; TEMP 36.1; O2SAT 96
[2022-03-28] MEDS: Enoxaparin Sodium 40 MG/0.4 ML SYRINGE SUBCUT (20:28)
[2022-03-29] MEDS: metroNIDAZOLE/NS 500 MG/100 ML PIGGYBACK 100 MG IV ×4 (01:08→18:35)
[2022-03-29 03:09] VITALS: BP 148/77; PULSE 86; RESP 17; TEMP 36.5; O2SAT 95
[2022-03-29] MEDS: vancomycin HCL 1,000 MG in 0.9 % Sodium Chloride 250 ML 270 MG IV ×2 (04:06→15:58)
[2022-03-29] MEDS: ondansetron HCL 4 MG/2 ML VIAL IVPUSH (04:08)
[2022-03-29] MEDS: Omeprazole 20 MG CAPSULE.DR PO (05:15)
[2022-03-29 06:32] LABS: Creatinine Clr Calc Pharmacy 65.3; Estimated Glomerular Filt Rate > 60
[2022-03-29 07:32] VITALS: BP 142/64; PULSE 87; RESP 18; TEMP 37.2; O2SAT 96
[2022-03-29] MEDS: Ascorbic Acid 500 MG TABLET PO (07:36)
[2022-03-29] MEDS: Metoprolol Tartrate 25 MG TABLET PO ×2 (07:36→21:30)
[2022-03-29] MEDS: predniSONE 5 MG TABLET PO (07:36)
[2022-03-29] MEDS: 0.9 % Sodium Chloride Flush 10 ML SYRINGE 5 ML IVFLUSH ×3 (07:36→18:36)
[2022-03-29] MEDS: Folic Acid 1 MG TABLET 10 MG PO (07:37)
[2022-03-29] MEDS: QUEtiapine Fumarate 25 MG TABLET 12.5 MG PO (07:37)
[2022-03-29] MEDS: Levothyroxine Sodium 50 MCG TABLET PO (07:37)
--- NOTE | 2022-03-29 07:47 | HE.PHANOTE ---
Scr is stable, continue same dose, next trough 2/ @1400
[2022-03-29] MEDS: cefEPime HCl 2 GM in 0.9 % Sodium Chloride 50 ML IV ×2 (10:57→21:30)
--- NOTE | 2022-03-29 12:14 | MHC.CM.PN ---
Addendum entered by Tomasa Law 03/29/22 14:32: ALEXY SPOKE WITH [facility] PHARMACIST WHO REPORTS SINCE A TEACH WAS NOT DONE THEY WOULD NOT BE ABLE TO FILL ORDER BEFORE THURSDAY WHEN THE NURSE RETURNS. SHE REPORTS SHE SENT AN EMAIL TO THE [employer] OFFICER TO DETERMINE IF [facility] WOULD COVER NURSING THROUGH THEM. PT AND FAMILY AWARE, IF [facility] CANNOT PROVIDE A NURSE, THE PT WILL NOT BE ABLE TO DO ABX AT HOME THEY ARE ALSO AWARE SHE WILL NOT BE ABLE TO DC HOME PRIOR TO THURSDAY Addendum entered by Tomasa Law 03/29/22 12:23: ALEXY RECEIVED AN [employer] MESSAGE FROM [facility] REQUESTING A COPY OF PTS LAST ID NOTE BE FAXED TO [phone] NOTE SENT CM MESSAGED THEM REQUESTING A CALL SO THAT NURSING SERVICES COULD BE DISCUSSED AWAITNG CALL Original Note: PT WILL NEED 2 WEEKS OF IV ERTEPENEM AT DC SHE DOES NOT HAVE A PCP CM CALLED [facility] [phone] [place] TO DETERMINE IF THEY ARE WILLING TO PROVIDE NURSING SKILLS ALEXY SPOKE BOBBY HYMAN FROM [facility] ANSWERING SERVICE, SHE INDICATED SHE FORWARDED THE MESSAGE TO JOE, THE [employer] PHARMACIST AWAITING RETURN CALL
--- NOTE | 2022-03-29 14:12 | P.PNIM_ITS ---
Subjective Subjective Date of Service: 03/29/22 Interval History: seen and examined this morning follow up for left foot infection left foot blister opened by surgery patient denies fever, pain controlled Review of Systems Review of Systems: Yes all other systems are reviewed and are negative Constitutional Constitutional: Reports chills and Denies fever(s) Cardiovascular Cardiovascular: Denies chest pain, Denies palpitations and Denies dyspnea Respiratory Respiratory: Denies cough and Denies dyspnea Gastrointestinal Gastrointestinal: Denies abdominal pain, Denies nausea and Denies vomiting Endocrine Endocrine: Denies palpitations Physical Exam Vital Signs: Vital Signs: Last Vital Signs Temp 98.9 F 03/29/22 07:32 Pulse 87 03/29/22 07:32 Resp 18 03/29/22 07:32 BP 142/64 H 03/29/22 07:32 Pulse Ox 96 03/29/22 07:32 O2 Del Method 03/29/22 07:32 BMI result Body Mass Index 30.1 Appearing in no acute distress lung sounds are clear to auscultation heart regular rate rhythm, clear S1, S2 positive bowel sounds, abdomen is soft, nontender neuro patient is alert x3, no focal deficits Objective Data Active Medications Acetaminophen (Acetaminophen 325 Mg Tablet) 650 mg PO Q6H PRN PRN Reason: Pain, Mild (Pain Scale 1-3) Last Admin: 03/28/22 07:50 Dose: 650 mg Documented By: CARLEEN Ascorbic Acid (Ascorbic Acid 500 Mg Tablet) 500 mg PO DAILY COUNTS INCLUDE 234 BEDS AT THE [facility] Last Admin: 03/29/22 07:36 Dose: 500 mg Documented By: WESTLEY Enoxaparin Sodium (Enoxaparin Sodium 40 Mg/0.4 Ml Syringe) 40 mg SUBCUT Q24H COUNTS INCLUDE 234 BEDS AT THE [facility] Last Admin: 03/28/22 20:28 Dose: 40 mg Documented By: KENJI Folic Acid (Folic Acid 1 Mg Tablet) 10 mg PO DAILY COUNTS INCLUDE 234 BEDS AT THE [facility] Last Admin: 03/29/22 07:37 Dose: 10 mg Documented By: WESTLEY Cefepime HCl 2 gm/ Sodium (Chloride) 50 mls @ 100 mls/hr IV Q12H COUNTS INCLUDE 234 BEDS AT THE [facility] Last Infusion: 03/29/22 11:39 Dose: 0 mls/hr Documented By: WESTLEY Metronidazole (Flagyl) 500 mg in 100 mls @ 100 mls/hr IV Q6H COUNTS INCLUDE 234 BEDS AT THE [facility] Last Admin: 03/29/22 13:06 Dose: 100 mls/hr Documented By: WESTLEY Vancomycin HCl 1,000 mg/ (Sodium Chloride) 270 mls @ 270 mls/hr IV Q12H COUNTS INCLUDE 234 BEDS AT THE [facility] Last Infusion: 03/29/22 05:16 Dose: 0 mls/hr Documented By: KENJI Levothyroxine Sodium (Levothyroxine Sodium 50 Mcg Tablet) 50 mcg PO DAILY COUNTS INCLUDE 234 BEDS AT THE [facility] Last Admin: 03/29/22 07:37 Dose: 50 mcg Documented By: WESTLEY Melatonin (Melatonin 3 Mg Tablet) 6 mg PO BEDTIME PRN PRN Reason: Insomnia Metoprolol Tartrate (Metoprolol Tartrate 25 Mg Tablet) 25 mg PO BID COUNTS INCLUDE 234 BEDS AT THE [facility] Last Admin: 03/29/22 07:36 Dose: 25 mg Documented By: WESTLEY Morphine Sulfate (Morphine Sulfate 2 Mg/Ml Cartridge) 2 mg IVPUSH Q4H PRN; Protocol PRN Reason: Pain, Severe (Pain Scale 7-10) Last Admin: 03/28/22 00:57 Dose: 2 mg Documented By: OZORALB Non-Formulary Medication (Alergot Gotas Oftamicas) 1 drop EYE-BOTH BID COUNTS INCLUDE 234 BEDS AT THE [facility] Non-Formulary Medication (Lagrioltol Gotas Oftamicas) 1 drop EYE-BOTH BID COUNTS INCLUDE 234 BEDS AT THE [facility] Omeprazole (Omeprazole 20 Mg Capsule.Dr) 20 mg PO DAILY@0630 COUNTS INCLUDE 234 BEDS AT THE [facility] Last Admin: 03/29/22 05:15 Dose: 20 mg Documented By: KENJI Ondansetron HCl (Ondansetron Hcl 4 Mg/2 Ml Vial) 4 mg IVPUSH Q8H PRN PRN Reason: Nausea and Vomiting Last Admin: 03/29/22 04:08 Dose: 4 mg Documented By: KENJI Pharmacy Consult (Consult Rx Vancomycin Dosing) 1 each MISCELLANE DAILY PRN PRN Reason: Consult order Prednisone (Prednisone 5 Mg Tablet) 5 mg PO DAILY COUNTS INCLUDE 234 BEDS AT THE [facility] Last Admin: 03/29/22 07:36 Dose: 5 mg Documented By: WESTLEY Quetiapine Fumarate (Quetiapine Fumarate 25 Mg Tablet) 12.5 mg PO DAILY COUNTS INCLUDE 234 BEDS AT THE [facility] Last Admin: 03/29/22 07:37 Dose: 12.5 mg Documented By: WESTLEY Sodium Chloride (0.9 % Sodium Chloride Flush 3 Ml Syringe) 3 ml IVFLUSH QSHIFT COUNTS INCLUDE 234 BEDS AT THE [facility] Last Admin: 03/29/22 07:36 Dose: Not Given Documented By: WESTLEY Non-Admin Reason: Duplicate Order Sodium Chloride (0.9 % Sodium Chloride Flush 10 Ml Syringe) 5 ml IVFLUSH TID S Last Admin: 03/29/22 07:36 Dose: 5 ml Documented By: WESTLEY Labs 03/27/22 06:10 03/29/22 05:45 Labs: Laboratory Results - last 24 hr 03/28/22 03/29/22 14:48 05:45 Estim Creat Clear Calc 65.3 Estimated GFR > 60 Random Vancomycin 14.2 L Assessment and Plan (1) Cellulitis: Status: Acute Plan 66 year old female with history of pemphigus vulgaris on chronic prednisone and methotrexate and chang's thyroiditis admitted for acute osteomyelitis of the left great toe. cellulitis/abscess L great toe MRI showing possible early osteomyelitis distal phalanx left great toe blister unroofed by surgery this am continue IV vanco and cefepime, flagyl added for better aerobic coverage Seen by vascular, noninvasive arterial testing ordered, no evidence of PAD PICC line placed 2/2 Blood cultures negative to date seen by ID, duration/abx 2 weeks with ertapenem when discharged, continue current regimen for now pemphigus vulgaris Hold methotrexate and mycophenolate at this time due to infection. Continue prednisone Chang's Continue levothyroxine DVT prophylaxis-Lovenox Full code attending - dr. Hanna Requires ongoing inpatient stay for management of acute cellulitis requiring IV antibiotics Time Spent With Patient Time: Total time managing care of this patient today ____ minutes. Quality Stroke Does the patient have a stroke diagnosis?: No VTE Prior VTE?: No VTE Risk Level:: Medical - moderate - high VTE Device Contraindication: Treatment Not Indicated VTE Drug Contraindication: N/A - Med Ordered
[2022-03-29 15:36] VITALS: BP 120/62; PULSE 81; RESP 14; TEMP 36.3; O2SAT 94
[2022-03-29] MEDS: 0.9 % Sodium Chloride Flush 3 ML SYRINGE IVFLUSH (18:36)
[2022-03-29 19:24] VITALS: BP 156/70; PULSE 75; RESP 15; TEMP 36.3; O2SAT 99
[2022-03-29] MEDS: Enoxaparin Sodium 40 MG/0.4 ML SYRINGE SUBCUT (21:30)
[2022-03-29] MEDS: Melatonin 3 MG TABLET 6 MG PO (21:44)
[2022-03-30] MEDS: metroNIDAZOLE/NS 500 MG/100 ML PIGGYBACK 100 MG IV ×4 (00:54→18:16)
[2022-03-30 04:00] VITALS: BP 131/65; PULSE 70; RESP 16; TEMP 36.6; O2SAT 96
[2022-03-30] MEDS: vancomycin HCL 1,000 MG in 0.9 % Sodium Chloride 250 ML 270 MG IV ×2 (04:05→19:38)
[2022-03-30] MEDS: Omeprazole 20 MG CAPSULE.DR PO (05:13)
[2022-03-30] MEDS: Metoprolol Tartrate 25 MG TABLET PO ×2 (07:53→21:19)
[2022-03-30] MEDS: QUEtiapine Fumarate 25 MG TABLET 12.5 MG PO (07:53)
[2022-03-30] MEDS: Ascorbic Acid 500 MG TABLET PO (07:53)
[2022-03-30] MEDS: Folic Acid 1 MG TABLET 10 MG PO (07:53)
[2022-03-30] MEDS: Levothyroxine Sodium 50 MCG TABLET PO (07:53)
[2022-03-30] MEDS: predniSONE 5 MG TABLET PO (07:53)
[2022-03-30] MEDS: 0.9 % Sodium Chloride Flush 3 ML SYRINGE IVFLUSH (07:59)
[2022-03-30 08:00] VITALS: BP 126/65; PULSE 84; RESP 18; TEMP 36.5; O2SAT 97
[2022-03-30 08:39] LABS: Creatinine Clr Calc Pharmacy 62.7; Estimated Glomerular Filt Rate > 60
--- NOTE | 2022-03-30 09:21 | HO.PM.IMPN ---
Subjective Subjective Date of Service: 03/30/22 Interval History: seen and examined this morning follow up for left foot infection left foot blister opened by surgery patient denies fever, pain controlled Review of Systems Review of Systems: Yes all other systems are reviewed and are negative Constitutional Constitutional: Reports chills and Denies fever(s) Cardiovascular Cardiovascular: Denies chest pain, Denies palpitations and Denies dyspnea Respiratory Respiratory: Denies cough and Denies dyspnea Gastrointestinal Gastrointestinal: Denies abdominal pain, Denies nausea and Denies vomiting Endocrine Endocrine: Denies palpitations Physical Exam Vital Signs: Vital Signs: Last Vital Signs Temp 97.7 F 03/30/22 08:00 Pulse 84 03/30/22 08:00 Resp 18 03/30/22 08:00 BP 126/65 03/30/22 08:00 Pulse Ox 97 03/30/22 08:00 O2 Del Method 03/30/22 08:00 BMI result Body Mass Index 30.1 Appearing in no acute distress lung sounds are clear to auscultation heart regular rate rhythm, clear S1, S2 positive bowel sounds, abdomen is soft, nontender neuro patient is alert x3, no focal deficits Left foot great toe popped blister Objective Data Active Medications Acetaminophen (Acetaminophen 325 Mg Tablet) 650 mg PO Q6H PRN PRN Reason: Pain, Mild (Pain Scale 1-3) Last Admin: 03/28/22 07:50 Dose: 650 mg Documented By: CARLEEN Ascorbic Acid (Ascorbic Acid 500 Mg Tablet) 500 mg PO DAILY ON LICENSE OF [facility] Last Admin: 03/30/22 07:53 Dose: 500 mg Documented By: YEVGENIY Enoxaparin Sodium (Enoxaparin Sodium 40 Mg/0.4 Ml Syringe) 40 mg SUBCUT Q24H ON LICENSE OF [facility] Last Admin: 03/29/22 21:30 Dose: 40 mg Documented By: KENJI Folic Acid (Folic Acid 1 Mg Tablet) 10 mg PO DAILY ON LICENSE OF [facility] Last Admin: 03/30/22 07:53 Dose: 10 mg Documented By: YEVGENIY Cefepime HCl 2 gm/ Sodium (Chloride) 50 mls @ 100 mls/hr IV Q12H ON LICENSE OF [facility] Last Infusion: 03/29/22 22:09 Dose: 0 mls/hr Documented By: KENJI Metronidazole (Flagyl) 500 mg in 100 mls @ 100 mls/hr IV Q6H ON LICENSE OF [facility] Last Infusion: 03/30/22 09:02 Dose: 0 mls/hr Documented By: YEVGENIY Vancomycin HCl 1,000 mg/ (Sodium Chloride) 270 mls @ 270 mls/hr IV Q12H ON LICENSE OF [facility] Last Infusion: 03/30/22 05:09 Dose: 0 mls/hr Documented By: KENJI Levothyroxine Sodium (Levothyroxine Sodium 50 Mcg Tablet) 50 mcg PO DAILY ON LICENSE OF [facility] Last Admin: 03/30/22 07:53 Dose: 50 mcg Documented By: YEVGENIY Melatonin (Melatonin 3 Mg Tablet) 6 mg PO BEDTIME PRN PRN Reason: Insomnia Last Admin: 03/29/22 21:44 Dose: 6 mg Documented By: KENJI Metoprolol Tartrate (Metoprolol Tartrate 25 Mg Tablet) 25 mg PO BID ON LICENSE OF [facility] Last Admin: 03/30/22 07:53 Dose: 25 mg Documented By: YEVGENIY Non-Formulary Medication (Alergot Gotas Oftamicas) 1 drop EYE-BOTH BID ON LICENSE OF [facility] Non-Formulary Medication (Lagrioltol Gotas Oftamicas) 1 drop EYE-BOTH BID ON LICENSE OF [facility] Omeprazole (Omeprazole 20 Mg Capsule.Dr) 20 mg PO DAILY@0630 ON LICENSE OF [facility] Last Admin: 03/30/22 05:13 Dose: 20 mg Documented By: KENJI Ondansetron HCl (Ondansetron Hcl 4 Mg/2 Ml Vial) 4 mg IVPUSH Q8H PRN PRN Reason: Nausea and Vomiting Last Admin: 03/29/22 04:08 Dose: 4 mg Documented By: KENJI Pharmacy Consult (Consult Rx Vancomycin Dosing) 1 each MISCELLANE DAILY PRN PRN Reason: Consult order Prednisone (Prednisone 5 Mg Tablet) 5 mg PO DAILY ON LICENSE OF [facility] Last Admin: 03/30/22 07:53 Dose: 5 mg Documented By: YEVGENIY Quetiapine Fumarate (Quetiapine Fumarate 25 Mg Tablet) 12.5 mg PO DAILY ON LICENSE OF [facility] Last Admin: 03/30/22 07:53 Dose: 12.5 mg Documented By: YEVGENIY Sodium Chloride (0.9 % Sodium Chloride Flush 3 Ml Syringe) 3 ml IVFLUSH QSHIFT ON LICENSE OF [facility] Last Admin: 03/30/22 07:59 Dose: 3 ml Documented By: HO.FOSTEKR Sodium Chloride (0.9 % Sodium Chloride Flush 10 Ml Syringe) 5 ml IVFLUSH TID CARMELO Last Admin: 03/30/22 09:03 Dose: Not Given Documented By: YEVGENIY Non-Admin Reason: Previously Administered Labs 03/27/22 06:10 03/30/22 06:29 Labs: Laboratory Results - last 24 hr 03/30/22 06:29 Estim Creat Clear Calc 62.7 Estimated GFR > 60 Microbiology Microbiology Results: Microbiology 03/24/22 17:27 Blood Culture - Final Blood - Venous No growth after 5 days. 03/24/22 17:24 Blood Culture - Final Blood - Venous No growth after 5 days. Assessment and Plan (1) Cellulitis: Status: Acute Plan 66 year old female with history of pemphigus vulgaris on chronic prednisone and methotrexate and chang's thyroiditis admitted for acute osteomyelitis of the left great toe. cellulitis/abscess L great toe MRI showing possible early osteomyelitis distal phalanx left great toe blister unroofed by surgery continue IV vanco and cefepime, flagyl added for better aerobic coverage Seen by vascular, noninvasive arterial testing ordered, no evidence of PAD PICC line placed 2/2 Blood cultures negative to date seen by ID, duration/abx 2 weeks with ertapenem when discharged, continue current regimen for now pemphigus vulgaris Hold methotrexate and mycophenolate at this time due to infection for one week Continue prednisone Chang's Continue levothyroxine DVT prophylaxis-Lovenox Full code attending - dr. Hanna Requires ongoing inpatient stay for management of acute cellulitis requiring IV antibiotics Time Spent With Patient Time: Total time managing care of this patient today ____ minutes. Quality Stroke Does the patient have a stroke diagnosis?: No VTE Prior VTE?: No VTE Risk Level:: Medical - moderate - high VTE Device Contraindication: Treatment Not Indicated VTE Drug Contraindication: N/A - Med Ordered
[2022-03-30] MEDS: cefEPime HCl 2 GM in 0.9 % Sodium Chloride 50 ML IV ×2 (10:06→21:18)
[2022-03-30 14:49] LABS: Vancomycin Trough 16.1 mcg/mL (10.0-20.0)
--- NOTE | 2022-03-30 15:03 | HE.PHANOTE ---
Vancomycin dosing Level therapeutic today. Continue current regimen. Next level 04/01 @ 0500. Pharmacy to continue monitoring renal function. Epi [facility]
[2022-03-30 16:00] VITALS: BP 135/66; PULSE 86; RESP 16; TEMP 36.3; O2SAT 96
[2022-03-30 19:55] VITALS: BP 139/65; PULSE 81; RESP 16; TEMP 36.2; O2SAT 97
[2022-03-30] MEDS: Enoxaparin Sodium 40 MG/0.4 ML SYRINGE SUBCUT (21:19)
[2022-03-30] MEDS: Melatonin 3 MG TABLET 6 MG PO (21:19)
[2022-03-30] MEDS: 0.9 % Sodium Chloride Flush 10 ML SYRINGE 5 ML IVFLUSH (21:25)
[2022-03-31] MEDS: metroNIDAZOLE/NS 500 MG/100 ML PIGGYBACK 100 MG IV ×2 (01:18→06:16)
[2022-03-31 04:00] VITALS: BP 148/70; PULSE 72; RESP 16; TEMP 36.6; O2SAT 96
[2022-03-31] MEDS: Omeprazole 20 MG CAPSULE.DR PO (06:15)
[2022-03-31 06:59] LABS: Creatinine Clr Calc Pharmacy 62.7; Estimated Glomerular Filt Rate > 60
[2022-03-31] MEDS: 0.9 % Sodium Chloride Flush 10 ML SYRINGE 5 ML IVFLUSH (07:39)
[2022-03-31] MEDS: QUEtiapine Fumarate 25 MG TABLET 12.5 MG PO (07:40)
[2022-03-31] MEDS: Levothyroxine Sodium 50 MCG TABLET PO (07:40)
[2022-03-31] MEDS: predniSONE 5 MG TABLET PO (07:40)
[2022-03-31] MEDS: Ascorbic Acid 500 MG TABLET PO (07:40)
[2022-03-31] MEDS: Metoprolol Tartrate 25 MG TABLET PO (07:41)
[2022-03-31] MEDS: Folic Acid 1 MG TABLET 10 MG PO (07:41)
[2022-03-31] MEDS: 0.9 % Sodium Chloride Flush 3 ML SYRINGE IVFLUSH (07:45)
[2022-03-31] MEDS: vancomycin HCL 1,000 MG in 0.9 % Sodium Chloride 250 ML 270 MG IV (07:46)
[2022-03-31 07:58] VITALS: BP 159/83; PULSE 73; RESP 16; TEMP 37.3; O2SAT 97
--- NOTE | 2022-03-31 10:27 | PM.DS ---
DS: Providers Provider Date of Service: 03/31/22 Date of admission: 03/24/22 19:49 Primary care physician: None Physician Consults: 03/24/22 19:49 Consult to Infectious Diseases Routine Consulting Provider: Bette Palomares Reason for consultation: osteomyelitis 03/26/22 14:17 Consult to Vascular Surgery Routine Consulting Provider: Wong Guadalupe Reason for consultation: osteomyelitis, left great toe with dusky appearance Attending physician on discharge: Nirav Michael Discharging clinician: Cherelle Manning DS: Diagnosis Discharge Diagnosis (1) Cellulitis: Status: Acute DS: Summary Hospital Course Hospital Course: HP as per admitting provider 66 year old female with history of pemphigus vulgaris on chronic prednisone and methotrexate and chang's thyroiditis presented to the ED earlier today for evaluation of left great toe pain ongoing for 3 days. Her daughter who is present at bedside assists with history/saudi arabian interpretation reports a family member gave her mother a pedicure 1 week ago in the home. Three days ago developed pain, redness, and swelling. No fevers, chills, purulent drainage. On arrival, VSS. Leukocytosis 17.9 renal function and electrolyte levels normal.? ESR and CRP pending.? X-ray of the left foot showing great toe soft tissue swelling as well as subtle bony findings in the distal aspect of the 1st distal phalanx raising the possibility of early osteomyelitis, MRI recommended.? Treat empirically in the ED with cefepime and vancomycin with pain control with morphine.? Patient to be admitted for a suspected osteomyelitis of the left great toe . cellulitis/abscess L great toe MRI showing possible early osteomyelitis distal phalanx left great toe blister unroofed by surgery and healing well Treated with IV vanco , cefepime, flagyl added for better aerobic coverage Seen by vascular, noninvasive arterial testing ordered, no evidence of PAD PICC line placed 2/2 Blood cultures negative to date seen by ID, rec 2 weeks IV ertapenem pemphigus vulgaris Hold methotrexate and mycophenolate at this time due to infection for one week, restart 04/02/22 Continue prednisone Chang's Continue levothyroxine Time Spent with Patient Time attestation: Total time managing care of this patient today ____ minutes. Discharge coordination time: Greater than 30 minutes Quality: Safe Use of Opioids Does Pt have an Active Cancer Diagnosis on the Problem List?: No Quality: Stroke Does the patient have a stroke diagnosis?: No Physical Exam Vital Signs: Vital Signs: Last Vital Signs Temp 99.1 F 03/31/22 07:58 Pulse 73 03/31/22 07:58 Resp 16 03/31/22 07:58 BP 159/83 H 03/31/22 07:58 Pulse Ox 97 03/31/22 07:58 O2 Del Method 03/31/22 07:58 BMI result Body Mass Index 30.1 Appearing in no acute distress head is normocephalic atraumatic eyes pupils are PERRLA sclera is anicteric mouth throat mucous membranes are intact and moist neck is supple no lymphadenopathy, no JVD noted lung sounds are clear to auscultation heart regular rate rhythm, clear S1, S2 positive bowel sounds, abdomen is soft, nontender neuro patient is alert x3, no focal deficits open blister with noted granulating tissue DS: Data Data Completed and Pending Labs on day of discharge: Laboratory Results - last 24 hr 03/30/22 03/31/22 14:09 06:15 Creatinine 0.77 Estim Creat Clear Calc 62.7 Estimated GFR > 60 Vancomycin Trough 16.1 Discharge Plan Discharge Anticipated Discharge Date/Time: 03/31/22 10:22 Patient Disposition: Home Health Service Discharge Diagnosis: Cellulitis Osteomyelitis History of pemphigus vulgaris Discharge Medications: New ertapenem 1 gram recon soln 1 g IM DAILY 14 Days Qty: 14 0RF Continued quetiapine 25 mg Tablet 12.5 mg PO DAILY prednisone 5 mg Tablet 5 mg PO DAILY ascorbic acid (vitamin C) [Vitamin C] 500 mg Tablet 500 mg PO DAILY levothyroxine [Euthyrox] 50 mcg Tablet 50 mcg PO DAILY pantoprazole 40 mg Tablet,Delayed Release (Dr/Ec) 40 mg PO DAILY@0630 folic acid 1 mg Tablet 10 mg PO DAILY Alergot Gotas Oftamicas 1 drp ophthalmic (eye) BID Biotalol 5 mg PO DAILY Lagrioltol Gotas Oftamicas 1 drp ophthalmic (eye) BID Held mycophenolate mofetil 500 mg Tablet 500 mg PO BID Hold Instructions: Resume on 04/02/22. methotrexate sodium 2.5 mg Tablet 5 mg PO MO@0900 Hold Instructions: Resume on 04/02/22. methotrexate sodium 2.5 mg Tablet 2.5 mg PO TU@0900 Hold Instructions: Resume on 04/02/22. Discharge Orders: Discharge Order (Routine); Ordered 03/31/22 Ordered By: Cherelle Manning Diet: Advance to usual diet Activity on Discharge: As tolerated Stand Alone Forms: Patient Portal Discharge page Activity Restrictions/Additional Instructions: Wound care upon discharge to left great toe: xeroform, 4x4 and Kerlix wrap to be changed daily. Please call Dr. Guadalupe at [phone] for 2 week follow up Care Plan Goals: Complete course of antibiotics Resolution of foot wound Health Concerns: Cellulitis Osteomyelitis History of pemphigus vulgaris Plan of Treatment: Follow-up with primary care provider as needed Continue IV ertapenem for 2 weeks,visiting nurse may discontinue PICC line when last dose completed May continue immunosuppressants 04/02/22 Assessment: See discharge summary
[2022-03-31] MEDS: Ertapenem Sodium 1 GM in 0.9 % Sodium Chloride 50 ML IV (10:49)
--- NOTE | 2022-03-31 10:56 | MHC.CM.PN ---
PATIENT WILL BE STAYING WITH HER DAUGHTER AT [address] [place] [address], [facility] [id number] [facility] IS ABLE TO PROVIDE RN SERVICES, PATIENT DOES NOT HAVE A PCP YET
--- NOTE | 2022-03-31 12:05 | MHC.CM.PN ---
PATIENT IS DC HOME TODAY WITH [facility] IMM 2/5 IN CHART FAMILY TO DIAL PAINTER AWARE OF PLAN.
== END 2022-03-31 13:30 | disposition home health service (06) | DRG 344 ==
LOC: HO.ED 19:48 → HO.EDOVER 20:02 → HO.S3 20:07
PROVIDERS: Internal Medicine; Nurse Practitioner Family; Physician Assistant; Admitting Provider Student in an Organized Health Care Education/Training Program; Emergency Provider Emergency Medicine Emergency Medical Services; Visit Provider Nurse Practitioner Acute Care
DX: M86.172 Other acute osteomyelitis, left ankle and foot (principal); D84.821 Immunodeficiency due to drugs; L10.0 Pemphigus vulgaris; L02.612 Cutaneous abscess of left foot; L03.032 Cellulitis of left toe; E06.3 Autoimmune thyroiditis; Z20.822 Contact with and (suspected) exposure to COVID-19; Z79.52 Long term (current) use of systemic steroids; Z79.890 Hormone replacement therapy; Z87.891 Personal history of nicotine dependence; Z79.899 Other long term (current) drug therapy
CPT/HCPCS: 36415; 36573; 73620; 73720; 80048; 80202; 82565; 83605; 85025; 85652; 86140; 87040; 87635; 93923; 93925; 99285; A9585; C1751; J0692; J1335; J1650; J2270; J2405; J3370

== ENCOUNTER → 2022-04-07 13:27 | Outpatient (BNVA) | payer OTHER, SELFPAY | PROVIDERS: Visit Provider Internal Medicine | DX: M86.9 Osteomyelitis, unspecified (principal) | CPT/HCPCS: 99212 ==

== ENCOUNTER → 2022-04-15 13:39 | Outpatient (BNVA) | payer OTHER, SELFPAY | PROVIDERS: Visit Provider Surgery Vascular Surgery | DX: L97.529 Non-pressure chronic ulcer of other part of left foot with unspecified severity (principal); L03.032 Cellulitis of left toe | CPT/HCPCS: 99212 ==

== ENCOUNTER 2022-04-16 07:57 | Outpatient (RCR) | payer OTHER, SELFPAY | END 2022-04-30 16:00 | disposition home or self-care (01) | LOC: HO.WCC 07:57 | PROVIDERS: Visit Provider Surgery | DX: S90.422D Blister (nonthermal), left great toe, subsequent encounter (principal); L84 Corns and callosities; I10 Essential (primary) hypertension | CPT/HCPCS: 99213 ==

== ENCOUNTER → 2022-04-18 13:31 | Outpatient (BNVA) | payer OTHER, SELFPAY | PROVIDERS: Visit Provider Internal Medicine | DX: M86.9 Osteomyelitis, unspecified (principal); L97.529 Non-pressure chronic ulcer of other part of left foot with unspecified severity | CPT/HCPCS: 99212 ==

== ENCOUNTER → 2022-05-07 14:44 | Outpatient (BNVA) | payer OTHER, SELFPAY | PROVIDERS: Visit Provider Internal Medicine | DX: M86.9 Osteomyelitis, unspecified (principal); L97.529 Non-pressure chronic ulcer of other part of left foot with unspecified severity; I73.9 Peripheral vascular disease, unspecified; E06.3 Autoimmune thyroiditis; L10.0 Pemphigus vulgaris | CPT/HCPCS: 99212 ==

== ENCOUNTER 2022-10-07 09:15 | Emergency (ER) | payer MEDICAID, SELFPAY ==
--- NOTE | ~2022-10-07 | CT_ITS ---
EXAMINATION: CT ABDOMEN AND PELVIS WITH CONTRAST CLINICAL INFORMATION: Right lower quadrant pain. COMPARISON: None available. TECHNIQUE: Multidetector volumetric images were obtained from the superior aspect of the liver through the pubic symphysis following administration 85 mL of Omnipaque 350 intravenous contrast. Sagittal and coronal reformatted images were obtained on the technologist's workstation. Oral contrast: No This CT examination was performed using dose optimization techniques as appropriate, variously including the following: *Automated exposure control *Adjustment of mA and/or kV according to patient size (this includes techniques or standardized protocols for targeted exams where dose is matched to indication/reason for exam; i.e. extremities or head) *Use of iterative reconstruction technique DLP: 585 mGy-cm FINDINGS: LUNG BASES: There is minimal compressive atelectasis. The heart size is normal. A small hiatal hernia is noted. LIVER, GALLBLADDER, AND BILIARY TREE: The liver is normal in size, shape, and attenuation. No focal hepatic lesion or biliary ductal dilatation is present. The gallbladder is distended without any radiopaque calculi, wall thickening or pericholecystic fluid collection. PANCREAS: Unremarkable. SPLEEN: Unremarkable. ADRENAL GLANDS: Unremarkable. KIDNEYS AND URETERS: The kidneys are normal in size, shape, and attenuation. No hydronephrosis, hydroureter, or calculi seen. No perinephric stranding. There is 5 mm hypodensity midpole left kidney likely small cysts. BLADDER: Unremarkable. GASTROINTESTINAL TRACT: There is scattered stool and gas seen in the colon without distention. Most of the stool is in the right colon. The appendix is normal caliber. The small bowel loops are normal caliber. No inflammatory process, free air or free fluid. ABDOMINAL WALL: No significant hernia is appreciated. LYMPH NODES: Normal. VASCULAR: Unremarkable. PELVIC VISCERA: Uterus is not visualized. OSSEOUS STRUCTURES: No aggressive lytic or sclerotic process seen. There is grade [address] L[address]/CT abdomen pelvis w IV con IMPRESSION: 1. No acute intra-abdominal process seen. 2. Mild constipation most of the stool is located in the right colon and the cecum region and likely cause of pain. The appendix is normal. Fleischner guidelines were followed.
--- NOTE | ~2022-10-07 | US_ITS ---
EXAMINATION: US ABDOMEN LIMITED CLINICAL INFORMATION: Right upper quadrant pain with radiation to flank. COMPARISON: None available. TECHNIQUE: Real-time imaging of the right upper quadrant abdominal viscera. Limited visualization due to bowel gas and body habitus. FINDINGS: PANCREAS: Limited visualization. LIVER: Diffuse increase in echogenicity of the liver is characteristic of primary hepatocellular disease, possibly due to hepatic steatosis and severely limits visualization. GALLBLADDER: Possible tiny gallstone. No gallbladder wall thickening. COMMON BILE DUCT: Normal in caliber measuring 0.45 cm in diameter. RIGHT KIDNEY: Borderline mild fullness right renal pelvis. No renal calculi. Renal cortical thickness is normal. Limited visualization. The kidney measures 9.2 cm in maximum dimension. FREE FLUID: None. US/US abdomen limited IMPRESSION: 1. Diffuse increase in echogenicity of the liver is characteristic of primary hepatocellular disease, possibly due to hepatic steatosis and severely limits visualization. 2. Possible tiny gallstone. No gallbladder wall thickening. 3. Borderline mild fullness right renal pelvis. No renal calculi.
[2022-10-07 09:23] VITALS: BP 176/108; PULSE 67; RESP 16; TEMP 36.4; O2SAT 100; BMI 29.4
[2022-10-07 09:39] LABS: MANUAL DIFF FLAG NO
[2022-10-07 09:45] LABS: Basophils Absolute Auto 0.1 X10*3/uL (0.0-0.2); Basophils Percent Auto 0.3 % (0-2); Eosinophils Percent Auto 0.3 % (0-4); Hematocrit 42.1 % (37.0-47.0); Hemoglobin 13.3 g/dl (12.0-16.0); Imm Gran Abs Auto 0.07 X10*3/uL (0.00-0.03); Imm Gran Pct Auto 0.5 % (0.0-0.4); Lymphocytes Absolute Auto 0.9 X10*3/uL (1.2-4.9); Lymphocytes Percent Auto 6.2 % (20-40); Mean Corpuscular HGB Conc 31.6 g/dl (31.0-35.0); Mean Corpuscular Volume 91.9 fL (80.0-98.0); Mean Platelet Volume 11.2 fL (9.4-12.3); Monocytes Absolute Auto 1.3 X10*3/uL (0.1-1.2); Monocytes Percent Auto 8.7 % (2-11); Neutrophils Absolute Auto 12.7 x10*3/uL (2.0-8.3); Platelet Count 196 X10*3/uL (160-400); Red Blood Count 4.58 X10*6/uL (4.20-5.50); Red Cell Distribution Width 14.3 % (11.0-16.0); White Blood Count 15.1 X10*3/uL (4.8-10.8)
[2022-10-07 09:55] LABS: Alanine Aminotransferase 33 U/L (0-31); Alkaline Phosphatase 67 U/L (39-117); Anion Gap 12 (12-20); Aspartate Amino Transferase 20 U/L (5-31); Bilirubin Direct 0.2 mg/dL (0.0-0.5); Bilirubin Total 0.5 mg/dL (0.0-1.0); Blood Urea Nitrogen 19 mg/dL (9-16); Calcium 9.3 mg/dL (8.4-10.2); Carbon Dioxide 26 mmol/L (22-29); Chloride 105 mmol/L (96-108); Creatinine Clr Calc Pharmacy 55.4; Estimated Glomerular Filt Rate > 60; Glucose Random 131 mg/dL (60-115); Lipase 35 U/L (8-78); Potassium 3.5 mmol/L (3.3-5.1); Sodium 139 mmol/L (135-145); Total Protein 7.5 g/dL (6.5-8.0)
--- NOTE | 2022-10-07 11:12 | ED.GENADULT ---
HPI - General Adult General Chief complaint: Abdominal Pain Stated complaint: L flank pain Time Seen by Provider: 10/07/22 15:36 Source: patient, family (Daughter) and parts interpreter Mode of arrival: ambulatory History of Present Illness HPI narrative: This is a 67-year-old female who reports right-sided abdominal pain since last night with associated nausea and vomiting and chills. Denies any diarrhea and denies any dysuria. Related Data Home Medications Medication Instructions Recorded Confirmed Alergot Martinez Oftamicas 1 drp ophthalmic (eye) BID 03/24/22 03/24/22 Biotalol 5 mg PO DAILY 03/24/22 03/24/22 Lagrioltol Rameshas Oftamicas 1 drp ophthalmic (eye) BID 03/24/22 03/24/22 ascorbic acid (vitamin C) 500 mg 500 mg PO DAILY 03/24/22 03/24/22 tablet (Vitamin C) folic acid 1 mg tablet 10 mg PO DAILY 03/24/22 03/24/22 levothyroxine 50 mcg tablet 50 mcg PO DAILY 03/24/22 03/24/22 (Euthyrox) methotrexate sodium 2.5 mg tablet 2.5 mg PO TU@0900 03/24/22 03/24/22 methotrexate sodium 2.5 mg tablet 5 mg PO MO@0900 03/24/22 03/24/22 mycophenolate mofetil 500 mg tablet 500 mg PO BID 03/24/22 03/24/22 pantoprazole 40 mg tablet,delayed 40 mg PO DAILY@0630 03/24/22 03/24/22 release prednisone 5 mg tablet 5 mg PO DAILY 03/24/22 03/24/22 quetiapine 25 mg tablet 12.5 mg PO DAILY 03/24/22 03/24/22 Previous Rx's Medication Instructions Recorded cefdinir 300 mg capsule 300 mg PO BID 7 days #14 caps 10/07/22 phenazopyridine 100 mg tablet 100 mg PO TID PRN pain 6 doses #6 10/07/22 (Pyridium) tabs Allergies Allergy/AdvReac Type Severity Reaction Status Date / Time No Known Allergies Allergy Verified 05/07/22 14:53 Review of Systems Review of Systems: Pertinent positives and negatives as stated in HPI PMFSH Past Medical History Source: nursing notes reviewed Medical History Jeff's thyroiditis PAD (peripheral artery disease) Pemphigus vulgaris Family History Family History Mother Diabetes Social History Social History Household Members: Spouse Alcohol intake: never Patient Tobacco Use Status: Former Tobacco user e-Cigarette/Vaping Use: Never Used Advance Directives: No Advance Directives Information Provided: Yes service: No Current occupational status: retired Physical Exam ED Vital Signs: Vital Signs - 24 hr 10/07/22 09:23 10/07/22 16:00 10/07/22 17:25 Temperature 97.5 F 98.7 F 99.1 F Pulse Rate 67 69 74 Respiratory Rate 16 16 16 Blood Pressure 176/108 H 201/90 H 194/96 H Pulse Oximetry 100 99 99 Oxygen Delivery Method Room Air Room Air Room Air 10/07/22 18:21 Temperature 98.8 F Pulse Rate 78 Respiratory Rate 18 Blood Pressure 175/79 H Pulse Oximetry 99 Oxygen Delivery Method Room Air BMI result Body Mass Index 29.4 VITAL SIGNS: Reviewed. GENERAL: Well developed, well nourished, in no acute distress. HEAD: Normocephalic/atraumatic EYES: PERRLA, EOMI EARS: Ext canals without abnormality NOSE: Nares patent bilateral OROPHARYNX: no oral lesions noted, posterior pharynx clear NECK: Supple, no adenopathy LUNGS: Normal breath sounds. No adventitious sounds or accessory muscle use. SpO2<99> CARDIOVASCULAR: Regular rate and rhythm without noted murmurs, no JVD or lower extremity edema. ABDOMEN: Soft, right lower quadrant pain without rebound non-distended with bowel sounds. MUSCULOSKELETAL: No tenderness, deformities, or effusions noted on gross inspection. EXTREMITIES: No cyanosis, clubbing or edema. SKIN: Inspection of the skin reveals no rashes NEUROLOGIC: Alert and oriented x 4. Strength and sensation to light touch were grossly intact x 4. Course Course Course Narrative: This is an RME: Additional HPI, ROS, PE not included below will be deferred to primary provider. 67 year old feamle presents w/ ruq abd pain w/ radiation to right flank since last night. Reports a/c n/v. No fevers or chills. Not tolerating PO. Still has her gallbladder. Plan- labs, us, urine Medications Administered Discontinued Medications Generic Name Dose Route Start Last Admin Trade Name Shauna PRN Reason Stop Dose Admin Fentanyl 25 mcg 10/07/22 17:25 10/07/22 17:35 Fentanyl Citrate/Pf 100 Mcg/2 Ml Vial IVPUSH 10/07/22 17:26 25 mcg ONCE ONE Administration Protocol Hydralazine HCl 5 mg 10/07/22 17:23 10/07/22 17:35 Hydralazine Hcl 20 Mg/Ml Vial IVPUSH 10/07/22 17:24 5 mg ONCE ONE Administration Protocol Sodium Chloride 1,000 mls @ 999 mls/hr 10/07/22 17:30 10/07/22 18:57 Ns IV 10/07/22 18:30 Infused .Q1H1M CARMELO Infusion Piperacillin Sod/Tazobactam 50 mls @ 100 mls/hr 10/07/22 17:23 10/07/22 18:57 Sod 3.375 gm/ Sodium Chloride IV 10/07/22 17:52 Infused ONCE ONE Infusion Iohexol 100 ml 10/07/22 17:59 10/07/22 18:00 Iohexol 350 Mg/Ml 100 Ml Infus..Btl IV 10/07/22 18:00 85 ml ONCE ONE Administration Ondansetron HCl 4 mg 10/07/22 17:43 10/07/22 17:44 Ondansetron Hcl 4 Mg/2 Ml Vial IVPUSH 10/07/22 17:44 4 mg ONCE ONE Administration Medical Decision Making Medical Decision Making [facility] Narrative: 1735: This is a 67-year-old female with history and clinical presentation, DDX: Appendicitis, renal colic, pyelonephritis, UTI. Lactic acid/IV fluids/antibiotics have been ordered as well as blood cultures. On my review of all investigations, hematologic indices are significant for a leukocytosis and left shift, however this is of unclear significance given the fact that patient is afebrile and imaging studies are negative for evidence to suggest cholecystitis, appendicitis, renal colic. There is no anemia or thrombocytopenia. Chemistry indices are not significant for electrolyte derangements, there is no EDWINA, and liver enzyme values are within normal limits. Ultrasound without pericholecystic fluid or gallbladder wall thickening and otherwise my interpretation is in agreement with radiology's impression. On review of CT scan no evidence to suggest appendicitis or ureteral lithiasis and otherwise my interpretation is in agreement with radiology's impression. However, patient does have noted hematuria with WBC, so will treat this as an infection and request that the patient follow-up with her primary care provider on the urine culture. Differential Diagnosis Differential Diagnoses: The differential diagnosis associated with the presentation includes Please see the discussion above Admission/Observation Consideration of admission/observation: Escalation of care including admission/observation considered Please see the discussion above Lab Data MDM Lab Attestation statement: I reviewed the patient's lab results. Please see the discussion above 10/07/22 09:34 10/07/22 09:34 Labs: Lab Results 10/07/22 10/07/22 10/07/22 Range/Units 09:34 09:34 15:17 WBC 15.1 H (4.8-10.8) X10*3/uL RBC 4.58 (4.20-5.50) X10*6/uL Hgb 13.3 (12.0-16.0) g/dl Hct 42.1 (37.0-47.0) % MCV 91.9 (80.0-98.0) fL MCH 29.0 (27.0-33.0) pg MCHC 31.6 (31.0-35.0) g/dl RDW 14.3 (11.0-16.0) % Plt Count 196 (160-400) X10*3/uL MPV 11.2 (9.4-12.3) fL Immature Gran % (Auto) 0.5 H (0.0-0.4) % Neut % (Auto) 84.0 H (45-73) % Lymph % (Auto) 6.2 L (20-40) % [place] % (Auto) 8.7 (2-11) % Eos % (Auto) 0.3 (0-4) % Baso % (Auto) 0.3 (0-2) % Lymph # (Auto) 0.9 L (1.2-4.9) X10*3/uL [place] # (Auto) 1.3 H (0.1-1.2) X10*3/uL Eos # (Auto) 0.0 (0.0-0.4) X10*3/uL Baso # (Auto) 0.1 (0.0-0.2) X10*3/uL Abs Immat Gran (auto) 0.07 H (0.00-0.03) X10*3/uL Absolute Neuts (auto) 12.7 H (2.0-8.3) x10*3/uL Absolute Nucleated RBC 0.000 (0.0-0.012) X10*3/uL Nucleated RBC % (auto) 0.0 (0.0-0.2) /100WBC Sodium 139 (135-145) mmol/L Potassium 3.5 (3.3-5.1) mmol/L Chloride 105 (96-108) mmol/L Carbon Dioxide 26 (22-29) mmol/L Anion Gap 12 (12-20) BUN 19 H (9-16) mg/dL Creatinine 0.92 (0.5-1.4) mg/dL Estim Creat Clear Calc 55.4 Estimated GFR > 60 Random Glucose 131 H (60-115) mg/dL Lactic Acid (0.5-2.0) mmol/L Calcium 9.3 D (8.4-10.2) mg/dL Total Bilirubin 0.5 (0.0-1.0) mg/dL Direct Bilirubin 0.2 (0.0-0.5) mg/dL AST 20 (5-31) U/L ALT 33 H (0-31) U/L Alkaline Phosphatase 67 (39-117) U/L Total Protein 7.5 (6.5-8.0) g/dL Albumin 4.0 (3.5-5.0) g/dL Lipase 35 (8-78) U/L Urine Color Yellow Urine Appearance Clear Urine pH 8.0 (5.0-9.0) Ur Specific [place] 1.015 (1.005-1.025) Urine Protein 30 (1+) H (Neg-Trace) mg/dL Urine Glucose (UA) Negative (Negative) mg/dL Urine Ketones Negative (Negative) mg/dL Urine Blood Small (1+) H (Negative) Urine Nitrite Negative (Negative) Ur Leukocyte Esterase Small (1+) H (Negative) Urine RBC 11-20 H (0-2) /HPF Urine WBC 11-20 H (0-5) /HPF Ur Squamous Epith Cells 0-2 (0-2) /HPF Urine Bacteria None Seen (None Seen) Hyaline Casts 0-2 (0-2) /LPF 10/07/22 Range/Units 17:30 WBC (4.8-10.8) X10*3/uL RBC (4.20-5.50) X10*6/uL Hgb (12.0-16.0) g/dl Hct (37.0-47.0) % MCV (80.0-98.0) fL MCH (27.0-33.0) pg MCHC (31.0-35.0) g/dl RDW (11.0-16.0) % Plt Count (160-400) X10*3/uL MPV (9.4-12.3) fL Immature Gran % (Auto) (0.0-0.4) % Neut % (Auto) (45-73) % Lymph % (Auto) (20-40) % [place] % (Auto) (2-11) % Eos % (Auto) (0-4) % Baso % (Auto) (0-2) % Lymph # (Auto) (1.2-4.9) X10*3/uL [place] # (Auto) (0.1-1.2) X10*3/uL Eos # (Auto) (0.0-0.4) X10*3/uL Baso # (Auto) (0.0-0.2) X10*3/uL Abs Immat Gran (auto) (0.00-0.03) X10*3/uL Absolute Neuts (auto) (2.0-8.3) x10*3/uL Absolute Nucleated RBC (0.0-0.012) X10*3/uL Nucleated RBC % (auto) (0.0-0.2) /100WBC Sodium (135-145) mmol/L Potassium (3.3-5.1) mmol/L Chloride (96-108) mmol/L Carbon Dioxide (22-29) mmol/L Anion Gap (12-20) BUN (9-16) mg/dL Creatinine (0.5-1.4) mg/dL Estim Creat Clear Calc Estimated GFR Random Glucose (60-115) mg/dL Lactic Acid 1.5 (0.5-2.0) mmol/L Calcium (8.4-10.2) mg/dL Total Bilirubin (0.0-1.0) mg/dL Direct Bilirubin (0.0-0.5) mg/dL AST (5-31) U/L ALT (0-31) U/L Alkaline Phosphatase (39-117) U/L Total Protein (6.5-8.0) g/dL Albumin (3.5-5.0) g/dL Lipase (8-78) U/L Urine Color Urine Appearance Urine pH (5.0-9.0) Ur Specific [place] (1.005-1.025) Urine Protein (Neg-Trace) mg/dL Urine Glucose (UA) (Negative) mg/dL Urine Ketones (Negative) mg/dL Urine Blood (Negative) Urine Nitrite (Negative) Ur Leukocyte Esterase (Negative) Urine RBC (0-2) /HPF Urine WBC (0-5) /HPF Ur Squamous Epith Cells (0-2) /HPF Urine Bacteria (None Seen) Hyaline Casts (0-2) /LPF Radiology Impression Discussion of test interpretation with radiology: I have reviewed the radiologist's reading. Radiologist Impression: Please see the discussion above External Record Review External record reviewed: Office record and Outpatient record Chronic Conditions Jeff Critical Care Time Critical Care Time Critical Care Time: Yes Total Critical Care Time: 30 Attestation: I personally attest to this time spent taking care of the patient. Discharge Plan Discharge Clinical Impression: Pyelonephritis Patient Disposition: Home, Self-Care Instructions: Kidney Infection (ED) Additional Instructions: 1. Resume all home medications as prescribed. 2. Please complete the entire course of antibiotics as ordered. 3. Please follow-up with your primary care provider tomorrow morning so that you can follow-up on urine culture and insure that the antibiotics are adequately covering your urine infection. Return to the ER for any worsening symptoms. Prescriptions: New cefdinir 300 mg capsule 300 mg PO BID 7 Days Qty: 14 0RF phenazopyridine [Pyridium] 100 mg tablet 100 mg PO TID PRN (Reason: pain) Qty: 6 0RF No Action quetiapine 25 mg Tablet 12.5 mg PO DAILY prednisone 5 mg Tablet 5 mg PO DAILY mycophenolate mofetil 500 mg Tablet 500 mg PO BID Hold Instructions: Resume on 04/02/22. ascorbic acid (vitamin C) [Vitamin C] 500 mg Tablet 500 mg PO DAILY levothyroxine [Euthyrox] 50 mcg Tablet 50 mcg PO DAILY pantoprazole 40 mg Tablet,Delayed Release (Dr/Ec) 40 mg PO DAILY@0630 folic acid 1 mg Tablet 10 mg PO DAILY Alergot Martinez [place] 1 drp ophthalmic (eye) BID Biotalol 5 mg PO DAILY Lagrioltol Martinez Thomason[place] 1 drp ophthalmic (eye) BID methotrexate sodium 2.5 mg Tablet 5 mg PO MO@0900 Hold Instructions: Resume on 04/02/22. methotrexate sodium 2.5 mg Tablet 2.5 mg PO TU@0900 Hold Instructions: Resume on 04/02/22. Referrals: Name,MD Nic [Primary Care Provider] -
--- NOTE | 2022-10-07 15:09 | PC.NURSE ---
PT PRESENTS FROM WITH CONTINUED RUQ PAIN. SHE WAS PROVIDED A URINE CUP FOR A SPECIMEN
[2022-10-07 15:23] LABS: Appearance Urine Clear; Color Urine Yellow; Glucose Urine UA Negative (Negative); Leukocyte Esterase Urine Small (1+) (Negative); Nitrite Urine Negative (Negative); Specific Gravity - Urine 1.015 (1.005-1.025); UMIC TRIGGER UACC YES; Urine Blood Small (1+) (Negative); Urine Ketones Negative (Negative); Urine Protein 30 (1+) mg/dL (Neg-Trace)
[2022-10-07 15:29] LABS: Bacteria Urine None Seen (None Seen); Hyaline Casts Urine 0-2 /LPF (0-2); Squamous Epithelial Cell Urine 0-2 /HPF (0-2); UACC Culture Trigger YES
[2022-10-07 16:00] VITALS: BP 201/90; PULSE 69; RESP 16; TEMP 37.1; O2SAT 99
--- NOTE | 2022-10-07 16:53 | PC.NURSE ---
patient is still waiting for provider for assessment and orders for pain/care/hypertension as patients daughter is visually and verbally upset.
[2022-10-07 17:25] VITALS: BP 194/96; PULSE 74; RESP 16; TEMP 37.3; O2SAT 99
[2022-10-07] MEDS: hydrALAZINE HCl 20 MG/ML VIAL 5 MG IVPUSH (17:35)
[2022-10-07] MEDS: 0.9 % Sodium Chloride 1,000 ML 999 ML IV (17:35)
[2022-10-07] MEDS: fentaNYL citrate/PF 100 MCG/2 ML VIAL 25 MCG IVPUSH (17:35)
[2022-10-07] MEDS: ondansetron HCL 4 MG/2 ML VIAL IVPUSH (17:44)
[2022-10-07 17:47] LABS: Lactic Acid 1.5 mmol/L (0.5-2.0)
[2022-10-07] MEDS: iohexoL 350 MG/ML 100 ML INFUS..BTL IV (18:00)
[2022-10-07] MEDS: Piperacillin Sodium/Tazobactam 3.375 GM in 0.9 % Sodium Chloride 50 ML IV (18:19)
[2022-10-07 18:21] VITALS: BP 175/79; PULSE 78; RESP 18; TEMP 37.1; O2SAT 99
[2022-10-07 19:49] VITALS: BP 168/79; PULSE 85; RESP 16; TEMP 37.9; O2SAT 98
[2022-10-07] MEDS: Phenazopyridine HCL 200 MG TABLET PO (20:00)
[2022-10-07] MEDS: Amoxicillin/Potassium Clav 875 MG TABLET PO (20:00)
--- NOTE | 2022-10-07 20:09 | PC.NURSE ---
Pt medicated per mar. No signs of distress. Pt denies sob and chest pain.
== END 2022-10-07 20:12 | disposition home or self-care (01) ==
PROVIDERS: Emergency Provider Student in an Organized Health Care Education/Training Program; PCP Internal Medicine Geriatric Medicine
DX: N12 Tubulo-interstitial nephritis, not specified as acute or chronic (principal); R11.2 Nausea with vomiting, unspecified; Z79.899 Other long term (current) drug therapy; Z87.891 Personal history of nicotine dependence
CPT/HCPCS: 36415; 74177; 76705; 80048; 80076; 81001; 83605; 83690; 85025; 87040; 87086; 96361; 96374; 96375; 99284; 99285; J2405; J2543; J3010; Q9967

== ENCOUNTER 2022-11-17 08:05 | Outpatient (REF) | payer MEDICAID, OTHER, SELFPAY ==
--- NOTE | ~2022-11-17 | US_ITS ---
EXAMINATION: US ABDOMEN COMPLETE CLINICAL INFORMATION: Upper abdominal pain, question kidney stone. COMPARISON: Ultrasound abdomen limited 10/07/2022. CT abdomen and pelvis with contrast 10/07/2022. TECHNIQUE: Real-time imaging of the abdominal viscera. FINDINGS: PANCREAS: The visualized head and body of the pancreas appears unremarkable. Remainder of the pancreas is obscured by bowel gas. ABDOMINAL AORTA: Proximal and mid aorta appears unremarkable. Distal aorta is obscured by bowel gas. INFERIOR VENA CAVA: Visualized portions are normal. LIVER: Diffuse increased echogenicity of the parenchyma which severely limits visualization. There is no intrahepatic biliary duct dilatation seen. GALLBLADDER: Gallbladder is partially distended. Echogenic foci within the gallbladder lumen could represent echogenic bile, sludge or debris. The gallbladder wall is thickened measuring 0.55 cm. There is apparent edema/fluid in the gallbladder wall. [employer] reports, no tenderness in the area of the gallbladder. COMMON BILE DUCT: Normal in caliber measuring 0.6 cm in diameter. RIGHT KIDNEY: Normal. No hydronephrosis. No renal calculi or focal parenchymal lesions. The kidney measures 8.6 cm in maximum dimension. LEFT KIDNEY: Normal. No hydronephrosis. No renal calculi or focal parenchymal lesions. The kidney measures 8.3 cm in maximum dimension. SPLEEN: Small in caliber. The spleen measures 7.5 cm in maximum dimension. FREE FLUID: None. US/US abdomen complete IMPRESSION: 1. Partially distended gallbladder. Gallbladder wall thickening, edema/fluid in the gallbladder wall. Signal changes within the lumen of the gallbladder could represent echogenic bile, sludge or debris. [employer] reports no tenderness in the area of the gallbladder. The sonographic findings are nonspecific, could represent acute cholecystitis, and the appropriate clinical circumstance. Clinically correlate. Consider surgical consult. Short-term followup ultrasound or HIDA scan for further evaluation as clinically warranted. 2. There is generalized increase in hepatic echotexture, consistent with fatty infiltration or hepatocellular disease. Please correlate clinically. No focal hepatic mass or intrahepatic biliary duct dilatation is seen, evaluation is severely limited. 3. Additional findings and details as above. The report will be called to the ordering clinician by a [place] [facility] Phys[facility] Gin Clerk.
== END 2022-11-17 08:06 | disposition home or self-care (01) ==
LOC: HO.US 08:05
PROVIDERS: PCP Internal Medicine Geriatric Medicine; Visit Provider Internal Medicine
DX: R10.10 Upper abdominal pain, unspecified (principal)
CPT/HCPCS: 76700

== ENCOUNTER 2022-11-18 10:08 | Inpatient (IN) | payer MEDICAID, OTHER, SELFPAY ==
--- NOTE | ~2022-11-18 | CT_ITS ---
EXAMINATION: CT ABDOMEN AND PELVIS WITH CONTRAST CLINICAL INFORMATION: Pain. COMPARISON: None available. TECHNIQUE: Multidetector volumetric images were obtained from the superior aspect of the liver through the pubic symphysis following administration 85 mL of Omnipaque 350 intravenous contrast. Sagittal and coronal reformatted images were obtained on the technologist's workstation. Oral contrast: No This CT examination was performed using dose optimization techniques as appropriate, variously including the following: *Automated exposure control *Adjustment of mA and/or kV according to patient size (this includes techniques or standardized protocols for targeted exams where dose is matched to indication/reason for exam; i.e. extremities or head) *Use of iterative reconstruction technique DLP: 564 mGy-cm FINDINGS: LUNG BASES: The visualized lung bases are unremarkable. LIVER, GALLBLADDER, AND BILIARY TREE: The liver is normal in size, shape, and attenuation. No focal hepatic lesion or biliary ductal dilatation is present. There is gallbladder wall thickening. Multiple gallstones are noted. There is also mild pericholecystic infiltration. PANCREAS: Unremarkable. SPLEEN: Unremarkable. ADRENAL GLANDS: Unremarkable. KIDNEYS AND URETERS: The kidneys are normal in size, shape, and attenuation. No hydronephrosis, hydroureter, or calculi seen. No perinephric stranding. BLADDER: Unremarkable. GASTROINTESTINAL TRACT: The small and large bowel are unremarkable. There is retained stool. The appendix is unremarkable. ABDOMINAL WALL: No significant hernia is appreciated. LYMPH NODES: Normal. VASCULAR: There is atherosclerotic plaque of the abdominal aorta. There is no aneurysm. PELVIC VISCERA: Unremarkable. OSSEOUS STRUCTURES: There is grade [address] over L5[address]/CT abdomen pelvis w IV con IMPRESSION: Gallstones within a thickened gallbladder with pericholecystic infiltration. Suspect cholecystitis. Retained stool. No other significant abnormality seen. Fleischner guidelines were followed.
[2022-11-18 10:13] VITALS: BP 138/70; PULSE 70; RESP 18; TEMP 36.7; O2SAT 99; BMI 32.0
[2022-11-18 10:35] LABS: MANUAL DIFF FLAG NO
[2022-11-18 10:38] LABS: Basophils Absolute Auto 0.1 X10*3/uL (0.0-0.2); Basophils Percent Auto 0.5 % (0-2); Eosinophils Absolute Auto 0.2 X10*3/uL (0.0-0.4); Eosinophils Percent Auto 1.8 % (0-4); Hematocrit 39.3 % (37.0-47.0); Hemoglobin 12.1 g/dl (12.0-16.0); Imm Gran Abs Auto 0.14 X10*3/uL (0.00-0.03); Imm Gran Pct Auto 1.2 % (0.0-0.4); Lymphocytes Absolute Auto 1.8 X10*3/uL (1.2-4.9); Lymphocytes Percent Auto 15.2 % (20-40); Mean Corpuscular HGB Conc 30.8 g/dl (31.0-35.0); Mean Corpuscular Hemoglobin 28.3 pg (27.0-33.0); Mean Corpuscular Volume 91.8 fL (80.0-98.0); Mean Platelet Volume 9.9 fL (9.4-12.3); Monocytes Absolute Auto 0.9 X10*3/uL (0.1-1.2); Monocytes Percent Auto 7.1 % (2-11); Neutrophils Percent Auto 74.2 % (45-73); Platelet Count 360 X10*3/uL (160-400); Red Blood Count 4.28 X10*6/uL (4.20-5.50); Red Cell Distribution Width 14.2 % (11.0-16.0); White Blood Count 12.1 X10*3/uL (4.8-10.8)
[2022-11-18 10:57] LABS: Alanine Aminotransferase 11 U/L (0-31); Albumin Level 3.5 g/dL (3.5-5.0); Alkaline Phosphatase 67 U/L (39-117); Anion Gap 14 (12-20); Aspartate Amino Transferase 12 U/L (5-31); Bilirubin Total 0.3 mg/dL (0.0-1.0); Blood Urea Nitrogen 16 mg/dL (9-16); Calcium 9.6 mg/dL (8.4-10.2); Carbon Dioxide 24 mmol/L (22-29); Chloride 107 mmol/L (96-108); Creatinine Clr Calc Pharmacy 42.3; Estimated Glomerular Filt Rate 48; Glucose Random 105 mg/dL (60-115); Lipase 41 U/L (8-78); Potassium 3.5 mmol/L (3.3-5.1); Sodium 141 mmol/L (135-145); Total Protein 7.5 g/dL (6.5-8.0)
[2022-11-18] MEDS: Morphine Sulfate 4 MG/ML CARTRIDGE IVPUSH (13:29)
[2022-11-18] MEDS: ondansetron HCL 4 MG/2 ML VIAL IVPUSH (13:29)
[2022-11-18] MEDS: 0.9 % Sodium Chloride 1,000 ML 999 ML IVCONT (13:29)
[2022-11-18 13:32] VITALS: BP 158/75; PULSE 61; RESP 18; O2SAT 99
--- NOTE | 2022-11-18 13:48 | ED_ITS ---
HPI - Abdominal Pain General Chief Complaint: Abdominal Pain Stated Complaint: abd pain nausa Time Seen by Provider: 11/18/22 13:02 Source: patient and family Mode of arrival: ambulatory Limitations: no limitations History of Present Illness HPI narrative: patient comes in the emergency room accompanied by her daughter. Patient has been complaining of right upper quadrant pain/flank pain for approximately 1 month. Over the last week, the pain has gradually been getting worse. Patient states the pain is constant, nonradiating, seems to be unrelated to meals. Yesterday, patient had an ultrasound ordered but does not know the results. Patient denies nausea vomiting diarrhea, no fever or chills. Related Data Home Medications Medication Instructions Recorded Confirmed Alergot Martinez Gan 1 drp ophthalmic (eye) BID 03/24/22 03/24/22 Biotalol 5 mg PO DAILY 03/24/22 03/24/22 Lagrioltol Martinez Gan 1 drp ophthalmic (eye) BID 03/24/22 03/24/22 ascorbic acid (vitamin C) 500 mg 500 mg PO DAILY 03/24/22 03/24/22 tablet (Vitamin C) folic acid 1 mg tablet 10 mg PO DAILY 03/24/22 03/24/22 levothyroxine 50 mcg tablet 50 mcg PO DAILY 03/24/22 03/24/22 (Euthyrox) methotrexate sodium 2.5 mg tablet 2.5 mg PO TU@89903/24/22 03/24/22 methotrexate sodium 2.5 mg tablet 5 mg PO MO@0903/24/22 03/24/22 mycophenolate mofetil 500 mg tablet 500 mg PO BID 03/24/22 03/24/22 pantoprazole 40 mg tablet,delayed 40 mg PO DAILY@0630 03/24/22 03/24/22 release prednisone 5 mg tablet 5 mg PO DAILY 03/24/22 03/24/22 quetiapine 25 mg tablet 12.5 mg PO DAILY 03/24/22 03/24/22 Previous Rx's Medication Instructions Recorded cefdinir 300 mg capsule 300 mg PO BID 7 days #14 caps 10/07/22 ondansetron 4 mg oral soluble film 4 mg PO Q8H PRN nausea and 10/07/22 vomiting #30 ea phenazopyridine 100 mg tablet 100 mg PO TID PRN pain 6 doses #6 10/07/22 (Pyridium) tabs Allergies Allergy/AdvReac Type Severity Reaction Status Date / Time No Known Allergies Allergy Verified 05/07/22 14:53 Review of Systems Review of Systems ?Constitutional : No Weight loss, No Fever, No Chills, No Night Sweats, No Fatigue, No Malaise ENT/Mouth : No Hearing loss, No Ear Pain, No Nasal Congestion, No Sinus Pain, No Hoarseness, No sore throat, No Rhinorrhea, No Swallowing Difficulty Eyes: No Eye Pain, No Swelling, No Redness, No Foreign Body, No Discharge, No Vision Changes Cardiovascular : No Chest Pain, No SOB, No Dyspnea on Exertion, No Orthopnea, No Edema, No Palpitations Respiratory : No Cough, No Sputum, No Wheezing, No Smoke Exposure, No Dyspnea Gastrointestinal : No Nausea, No Vomiting, No Diarrhea, No Constipation,? ?Complaining of constant right upper quadrant pain/right flank pain Genitourinary : no irregular bleeding, No Dysuria, No Urinary Frequency, No Hematuria, No Urinary Incontinence, No Urgency, No Flank Pain, No Urinary Flow Changes, No Hesitancy Musculoskeletal : No joint pain, No Myalgias, No Joint Swelling Skin : No Skin Lesions, No rash Neuro : No Weakness, No Numbness, No Paresthesias, No Loss of Consciousness, No Dizziness, No Headache Psych : No Anxiety/Panic, No Depression, No SI/HI/AH/VH, No Social Issues, Heme/Lymph: No Bruising, No Bleeding,No Lymphadenopathy Endocrine : No Polyuria, No Polydipsia, No Temperature Intolerance [facility] Past Medical History Medical History (Updated 11/18/22 @ 14:53 by Kelly Lopez MD) Abdominal pain PAD (peripheral artery disease) Jeff's thyroiditis Pemphigus vulgaris Surgical History (Updated 11/18/22 @ 13:50 by Kelly Lopez MD) H/O: hysterectomy Family History Family History Mother Diabetes Social History Social History Household Members: Spouse Alcohol intake: never Patient Tobacco Use Status: Former Tobacco user e-Cigarette/Vaping Use: Never Used Advance Directives: No Advance Directives Information Provided: Yes service: No Current occupational status: retired Physical Exam ED Vital Signs: Vital Signs - 24 hr 11/18/22 10:13 11/18/22 13:32 Temperature 98.1 F Pulse Rate 70 61 Respiratory Rate 18 18 Blood Pressure 138/70 158/75 H Pulse Oximetry 99 99 Oxygen Delivery Method Room Air Room Air BMI result Body Mass Index 32.0 Const Other: ?Appearance: Alert.? Oriented X3.? No acute distress.?? Eyes: Pupils equal, round and reactive to light.? ENT: Pharynx normal.? Neck: Normal inspection.? Neck supple. No lymph nodes noted. No crepitus CVS: Normal heart rate and rhythm.? Pulses normal. Normal S1 and S2 Respiratory: No respiratory distress.? Breath sounds normal. No Wheezing. No rales? Abdomen: Soft and nontender. No rigidity. No distention. negative Trammell sign , no CVA tenderness Skin: Skin warm and dry.? Normal skin color.? Normal skin turgor.? Extremities: No lower extremity edema. No Lacerations. No Rash Neuro: Oriented X 3.? No motor deficit.? No sensory deficit. Moving all extremities. No slurred speech. CN 2 through 12 grossly intact Psych: calm, cooperative, normal affect Medical Decision Making Medical Decision Making [facility] Narrative: - my interpretation of labs: Patient has a white blood cell count of 12.1, patient has chronic leukocytosis, patient takes prednisone and methotrexate for pemphigus vulgaris. chemistry and LFTs unremarkable, lipase negative - patient had an ultrasound done yesterday, wrists all show a partially distended gallbladder, within the lumen of the gallbladder the may via presence echogenic bile, sludge with debries. - patient receiving IV fluids, morphine and Zofran - I discussed the patient labs and ultrasound with Dr. Humphries, recommendations: CT scan of the abdomen with contrast -My interpretation of CT scan of the abdomen, gallbladder is distended. - I discussed the CT findings with Dr. Humphries, patient being admitted. Patient started on Zosyn, patient and her daughter agree with plan Differential Diagnosis Differential Diagnoses: The differential diagnosis associated with the presentation includes ( cholecystitis, pyelonephritis, renal colic) Admission/Observation Consideration of admission/observation: Escalation of care including admission/observation considered ( given the patient's presentation on arrival, admission considered) Consult Healthcare Provider Management of the patient was discussed with: [employer] Lab Data [facility] Lab Attestation statement: I reviewed the patient's lab results. 11/18/22 10:32 11/18/22 10:32 Labs: Lab Results 11/18/22 Range/Units 10:32 WBC 12.1 H (4.8-10.8) X10*3/uL RBC 4.28 (4.20-5.50) X10*6/uL Hgb 12.1 (12.0-16.0) g/dl Hct 39.3 (37.0-47.0) % MCV 91.8 (80.0-98.0) fL MCH 28.3 (27.0-33.0) pg MCHC 30.8 L (31.0-35.0) g/dl RDW 14.2 (11.0-16.0) % Plt Count 360 D (160-400) X10*3/uL MPV 9.9 (9.4-12.3) fL Immature Gran % (Auto) 1.2 H (0.0-0.4) % Neut % (Auto) 74.2 H (45-73) % Lymph % (Auto) 15.2 L (20-40) % [place] % (Auto) 7.1 (2-11) % Eos % (Auto) 1.8 (0-4) % Baso % (Auto) 0.5 (0-2) % Lymph # (Auto) 1.8 (1.2-4.9) X10*3/uL [place] # (Auto) 0.9 (0.1-1.2) X10*3/uL Eos # (Auto) 0.2 (0.0-0.4) X10*3/uL Baso # (Auto) 0.1 (0.0-0.2) X10*3/uL Abs Immat Gran (auto) 0.14 H (0.00-0.03) X10*3/uL Absolute Neuts (auto) 9.0 H (2.0-8.3) x10*3/uL Absolute Nucleated RBC 0.000 (0.0-0.012) X10*3/uL Nucleated RBC % (auto) 0.0 (0.0-0.2) /100WBC Sodium 141 (135-145) mmol/L Potassium 3.5 (3.3-5.1) mmol/L Chloride 107 (96-108) mmol/L Carbon Dioxide 24 (22-29) mmol/L Anion Gap 14 (12-20) BUN 16 (9-16) mg/dL Creatinine 1.13 (0.5-1.4) mg/dL Estim Creat Clear Calc 42.3 Estimated GFR 48 Random Glucose 105 (60-115) mg/dL Calcium 9.6 (8.4-10.2) mg/dL Total Bilirubin 0.3 (0.0-1.0) mg/dL AST 12 (5-31) U/L ALT 11 (0-31) U/L Alkaline Phosphatase 67 (39-117) U/L Total Protein 7.5 (6.5-8.0) g/dL Albumin 3.5 (3.5-5.0) g/dL Lipase 41 (8-78) U/L Independent Interpretation I performed an independent interpretation of an: CT Scan Radiology Impression Discussion of test interpretation with radiology: I have reviewed the radiologist's reading. Radiologist Impression: FINDINGS: LUNG BASES: The visualized lung bases are unremarkable. LIVER, GALLBLADDER, AND BILIARY TREE: The liver is normal in size, shape, and attenuation. No focal hepatic lesion or biliary ductal dilatation is present. There is gallbladder wall thickening. Multiple gallstones are noted. There is also mild pericholecystic infiltration. PANCREAS: Unremarkable. SPLEEN: Unremarkable. ADRENAL GLANDS: Unremarkable. KIDNEYS AND URETERS: The kidneys are normal in size, shape, and attenuation. No hydronephrosis, hydroureter, or calculi seen. No perinephric stranding. BLADDER: Unremarkable. GASTROINTESTINAL TRACT: The small and large bowel are unremarkable. There is retained stool. The appendix is unremarkable. ABDOMINAL WALL: No significant hernia is appreciated. LYMPH NODES: Normal. VASCULAR: There is atherosclerotic plaque of the abdominal aorta. There is no aneurysm. PELVIC VISCERA: Unremarkable. OSSEOUS STRUCTURES: There is grade 1 anter[address] over L[address]/CT abdomen pelvis w IV con IMPRESSION: Gallstones within a thickened gallbladder with pericholecystic infiltration. Suspect cholecystitis. Retained stool. No other significant abnormality seen. Fleischner guidelines were followed. Independent Historian Clinical information obtained from an independent historian. History obtained from or confirmed by: Other ( daughter) External Record Review External record reviewed: Prior outpatient radiology ( ultrasound shows possible cholecystitis) Tests considered The following testing was considered but not selected: HIDA scan considered. Dr. Humphries admitted the patient, for studies and management be determined by the surgery team Chronic Conditions Patient?s care impacted by: Other Medications Administered Discontinued Medications Generic Name Dose Route Start Last Admin Trade Name Freq PRN Reason Stop Dose Admin Sodium Chloride 1,000 mls @ 999 mls/hr 11/18/22 13:14 11/18/22 13:29 Ns IVCONT 11/18/22 14:14 999 mls/hr .Q1H1M ONE Administration Iohexol 85 ml 11/18/22 14:09 11/18/22 14:10 Iohexol 350 Mg/Ml 100 Ml Infus..Btl IV 11/18/22 14:10 85 ml ONCE ONE Administration Morphine Sulfate 4 mg 11/18/22 13:14 11/18/22 13:29 Morphine Sulfate 4 Mg/Ml Cartridge IVPUSH 11/18/22 13:15 4 mg ONCE ONE Administration Protocol Ondansetron HCl 4 mg 11/18/22 13:16 11/18/22 13:29 Ondansetron Hcl 4 Mg/2 Ml Vial IVPUSH 11/18/22 13:17 4 mg ONCE ONE Administration Critical Care Time Critical Care Time Critical Care Time: Yes Total Critical Care Time: 60 Attestation: I have personally provided critical care time. Time includes review of lab data, radiology results, discussion with consultants, and monitoring for potential decompensation. Intervention performed as documented. Discharge Plan Discharge Clinical Impression: Cholecystitis Patient Disposition: Admitted As Inpatient Prescriptions: No Action quetiapine 25 mg Tablet 12.5 mg PO DAILY prednisone 5 mg Tablet 5 mg PO DAILY mycophenolate mofetil 500 mg Tablet 500 mg PO BID Hold Instructions: Resume on 04/02/22. ascorbic acid (vitamin C) [Vitamin C] 500 mg Tablet 500 mg PO DAILY levothyroxine [Euthyrox] 50 mcg Tablet 50 mcg PO DAILY pantoprazole 40 mg Tablet,Delayed Release (Dr/Ec) 40 mg PO DAILY@0630 folic acid 1 mg Tablet 10 mg PO DAILY Alergot Gotas Oftamicas 1 drp ophthalmic (eye) BID Biotalol 5 mg PO DAILY Lagrioltol Gotas Oftamicas 1 drp ophthalmic (eye) BID methotrexate sodium 2.5 mg Tablet 5 mg PO MO@0900 Hold Instructions: Resume on 04/02/22. methotrexate sodium 2.5 mg Tablet 2.5 mg PO TU@0900 Hold Instructions: Resume on 04/02/22. cefdinir 300 mg capsule 300 mg PO BID 7 Days Qty: 14 0RF phenazopyridine [Pyridium] 100 mg tablet 100 mg PO TID PRN (Reason: pain) Qty: 6 0RF ondansetron 4 mg film 4 mg PO Q8H PRN (Reason: nausea and vomiting) Qty: 30 0RF
--- NOTE | 2022-11-18 13:54 | P.HPGS_ITS ---
History of Present Illness History of Present Illness Date of Service: 11/25/22 Chief complaint: Cholecystitis Narrative: Anika Johnson is a 67 year old female with a long history of with a long history of pemphigus vulgaris and thyroid disease here in the ER because of abdominal pain. She says that she has had this for about 3 weeks now. She says that this episode it. She describes he says on the right side of her abdomen. About a month ago, she came to the ER because of pain. She had a CAT scan at that time showing constipation without any other abdominal findings. She says that her abdominal pain had resolved around that time and she was okay for about a week. She then started to have abdominal pain again, similar to the 1 when she had her ER visit. She says she has had this for 3 weeks now. She says that her episode of pain a month ago was much worse than what she has been having. However, she says that her primary care physician had told her that it may be best for her to go to the ER She has good oral intake. She denies nausea or vomiting. She denies diarrhea. She denies weight loss. She has been on oral prednisone for most of her life because of pemphigus vulgaris. She is an ex smoker. Review of Systems Constitutional: Constitutional: Denies chills and Denies fever(s) Cardiovascular: Cardiovascular: Denies chest pain, Denies dyspnea and Denies dyspnea on exertion Respiratory: Respiratory: Denies cough, Denies dyspnea and Denies dyspnea on exertion Gastrointestinal: Gastrointestinal: Denies hematochezia and Denies change in bowel habits Genitourinary: Genitourinary: Denies hematuria Musculoskeletal: Musculoskeletal: Denies back pain and Denies limited range of motion Neurologic: Denies focal weakness and Denies convulsions Psychiatric: Psychiatric: Denies depression and Denies mood swings PMFSH Past Medical History Medical History Arthritis Abdominal pain PAD (peripheral artery disease) Jeff's thyroiditis Pemphigus vulgaris Family History Family History Mother Diabetes Surgical History Surgical History H/O: hysterectomy Social History Social History Household Members: Spouse Housing: Apartment Do you presently have visiting nurse or other home services: No Alcohol intake: never Patient Tobacco Use Status: Former Tobacco user e-Cigarette/Vaping Use: Never Used Second Hand Smoke Exposure: No service: No Current occupational status: retired Meds Allergies Allergy/AdvReac Type Severity Reaction Status Date / Time No Known Allergies Allergy Verified 05/07/22 14:53 Active Medications: Current Medications Sodium Chloride (Ns) 1,000 mls @ 999 mls/hr IVCONT .Q1H1M ONE Stop: 11/18/22 14:14 Last Admin: 11/18/22 13:29 Dose: 999 mls/hr Home Medications Medication Instructions Recorded Confirmed Last Taken Type folic acid 1 mg tablet 1 mg PO DAILY 03/24/22 11/20/22 03/23/22 History levothyroxine 50 mcg tablet 50 mcg PO DAILY 03/24/22 11/18/22 11/18/22 History (Euthyrox) methotrexate sodium 2.5 mg tablet 2.5 mg PO TU@0900 03/24/22 11/18/22 11/11/22 History methotrexate sodium 2.5 mg tablet 5 mg PO MO@0900 03/24/22 11/18/22 11/17/22 History mycophenolate mofetil 500 mg tablet 500 mg PO BID 03/24/22 11/18/22 03/23/22 History prednisone 5 mg tablet 5 mg PO DAILY 03/24/22 11/18/22 03/23/22 History quetiapine 25 mg tablet 12.5 mg PO BEDTIME 03/24/22 11/18/22 03/23/22 History bisoprolol fumarate 10 mg tablet 5 mg PO QAM 11/18/22 11/18/22 11/18/22 History calcium carbonate 500 mg calcium 500 mg PO DAILY 11/18/22 11/18/22 Unknown History (1,250 mg) tablet zolpidem 10 mg tablet (Ambien) 10 mg PO BEDTIME PRN Insomnia 11/18/22 11/18/22 Unknown History Physical Exam Vital Signs: Vital Signs: Last Vital Signs Temp 98.1 F 11/18/22 10:13 Pulse 61 11/18/22 13:32 Resp 18 11/18/22 13:32 BP 158/75 H 11/18/22 13:32 Pulse Ox 99 11/18/22 13:32 O2 Del Method Room Air 11/18/22 13:32 BMI result Body Mass Index 32.0 Const: General: comfortable and no acute distress Orientation/consciousness: patient oriented x3 Neck: Neck: Yes no lymphadenopathy Resp: Auscultation: clear to auscultation bilaterally Cardio: Rhythm: regular rhythm GI: Other: Very minimal tenderness right side of the abdomen Palpation (GI): Soft to palpation, nontender and no guarding Neuro: General: patient oriented x3 Results Results Labs: Short CBC 11/18/22 Range/Units 10:32 WBC 12.1 H (4.8-10.8) X10*3/uL Hgb 12.1 (12.0-16.0) g/dl Hct 39.3 (37.0-47.0) % Plt Count 360 D (160-400) X10*3/uL BMP 11/18/22 10:32 Sodium 141 Potassium 3.5 Chloride 107 Carbon Dioxide 24 BUN 16 Creatinine 1.13 Calcium 9.6 Liver Function 11/18/22 Range/Units 10:32 Total Bilirubin 0.3 (0.0-1.0) mg/dL AST 12 (5-31) U/L ALT 11 (0-31) U/L Alkaline Phosphatase 67 (39-117) U/L Albumin 3.5 (3.5-5.0) g/dL Laboratory Results WBC 12.1 X10*3/uL (4.8-10.8) H 11/18/22 10:32 RBC 4.28 X10*6/uL (4.20-5.50) 11/18/22 10:32 Hgb 12.1 g/dl (12.0-16.0) 11/18/22 10:32 Hct 39.3 % (37.0-47.0) 11/18/22 10:32 MCV 91.8 fL (80.0-98.0) 11/18/22 10:32 MCH 28.3 pg (27.0-33.0) 11/18/22 10:32 MCHC 30.8 g/dl (31.0-35.0) L 11/18/22 10:32 RDW 14.2 % (11.0-16.0) 11/18/22 10:32 Plt Count 360 X10*3/uL (160-400) D 11/18/22 10:32 MPV 9.9 fL (9.4-12.3) 11/18/22 10:32 Immature Gran % (Auto) 1.2 % (0.0-0.4) H 11/18/22 10:32 Neut % (Auto) 74.2 % (45-73) H 11/18/22 10:32 Lymph % (Auto) 15.2 % (20-40) L 11/18/22 10:32 [place] % (Auto) 7.1 % (2-11) 11/18/22 10:32 Eos % (Auto) 1.8 % (0-4) 11/18/22 10:32 Baso % (Auto) 0.5 % (0-2) 11/18/22 10:32 Lymph # (Auto) 1.8 X10*3/uL (1.2-4.9) 11/18/22 10:32 [place] # (Auto) 0.9 X10*3/uL (0.1-1.2) 11/18/22 10:32 Eos # (Auto) 0.2 X10*3/uL (0.0-0.4) 11/18/22 10:32 Baso # (Auto) 0.1 X10*3/uL (0.0-0.2) 11/18/22 10:32 Abs Immat Gran (auto) 0.14 X10*3/uL (0.00-0.03) H 11/18/22 10:32 Absolute Neuts (auto) 9.0 x10*3/uL (2.0-8.3) H 11/18/22 10:32 Absolute Nucleated RBC 0.000 X10*3/uL (0.0-0.012) 11/18/22 10:32 Nucleated RBC % (auto) 0.0 /100WBC (0.0-0.2) 11/18/22 10:32 Sodium 141 mmol/L (135-145) 11/18/22 10:32 Potassium 3.5 mmol/L (3.3-5.1) 11/18/22 10:32 Chloride 107 mmol/L (96-108) 11/18/22 10:32 Carbon Dioxide 24 mmol/L (22-29) 11/18/22 10:32 Anion Gap 14 (12-20) 11/18/22 10:32 BUN 16 mg/dL (9-16) 11/18/22 10:32 Creatinine 1.13 mg/dL (0.5-1.4) 11/18/22 10:32 Estim Creat Clear Calc 42.3 11/18/22 10:32 Estimated GFR 48 11/18/22 10:32 Random Glucose 105 mg/dL (60-115) 11/18/22 10:32 Calcium 9.6 mg/dL (8.4-10.2) 11/18/22 10:32 Total Bilirubin 0.3 mg/dL (0.0-1.0) 11/18/22 10:32 AST 12 U/L (5-31) 11/18/22 10:32 ALT 11 U/L (0-31) 11/18/22 10:32 Alkaline Phosphatase 67 U/L (39-117) 11/18/22 10:32 Total Protein 7.5 g/dL (6.5-8.0) 11/18/22 10:32 Albumin 3.5 g/dL (3.5-5.0) 11/18/22 10:32 Lipase 41 U/L (8-78) 11/18/22 10:32 Assessment and Plan (1) Abdominal pain: Status: Resolved She has had periodic right sided abdl pain for about 3-4 weeks. Her US shows sludge vs debris with mild GB wall thickening. Her WBC is slightly elevated, although she is on chronic PO steroids for pemphigus. She is also on Methotrexate and mycophenolate. I have reviewed her CT scan and this does show inflammatory change on the fundus of the GB suggestive of acute cholecystitis. I explained to her and her daughter the option of proceeding with cholecystectomy. I discussed the technique of laparoscopic cholecystectomy, possible open. I reviewed the risks including but not limited to bleeding, infections, injury to adjacent organs and the bile duct, inherent risks of anesthesia (SC,pneumonia, blood clots) as well as the benefits and alternatives. She is aware that her chronic immunosuppression in creases her perioperative risks. Her LFTs are normal We will start her on IV abx as well. She otherwise looks comfortable and benign.We plan on doing her cholecystectomy tomorrow. Plan The patient has had this right-sided abdominal pain for over a month on and off. She had an ultrasound yesterday showing partially distended gallbladder with sludge versus debris. There is mention of mild gallbladder wall dilatation. She does not have any Trammell's sign. Her LFTs are normal. She has some mild elevation of her WBC but she is on oral steroids. She looks well and comfortable at this time and does not appear toxic. Her daughter had stated that it would be best for her to stay in the hospital for now until there is clarity with regards to her abdominal pain. Time Spent With Patient Time: Total time managing care of this patient today ____ minutes. Quality Stroke Does the patient have a stroke diagnosis?: No VTE Prior VTE?: No VTE Risk Level:: Medical - moderate - high VTE Device Contraindication: N/A - Device Ordered VTE Drug Contraindication: N/A - Med Ordered Procedures Date of Service Date of Service: 11/25/22
[2022-11-18] MEDS: iohexoL 350 MG/ML 100 ML INFUS..BTL 85 ML IV (14:10)
[2022-11-18 14:55] LABS: Appearance Urine Clear; Color Urine Yellow; Glucose Urine UA Negative (Negative); Leukocyte Esterase Urine Small (1+) (Negative); Nitrite Urine Negative (Negative); PH 5.5 (5.0-9.0); Specific Gravity - Urine >= 1.030 (1.005-1.025); UMIC TRIGGER UACC YES; Urine Blood Trace (Negative); Urine Ketones Negative (Negative); Urine Protein Negative (Neg-Trace)
[2022-11-18 15:07] LABS: Bacteria Urine None Seen (None Seen); Calcium Oxalate Crystals Urine Present; Hyaline Casts Urine 0-2 /LPF (0-2); UACC Culture Trigger YES
--- NOTE | 2022-11-18 15:22 | PHA.MEDREC ---
Pharmacy Consult ? Medication Reconciliation Pharmacy has completed the medication reconciliation. Patient's daughter had list of medications. She called patient's son to confirm methotrexate dose. Patient has not had rituxamab for about a year now. Anette Lipscomb, PharmD
[2022-11-18 15:29] VITALS: BP 119/69; PULSE 68; RESP 16; TEMP 36.7; O2SAT 97
[2022-11-18 15:48] LABS: Lactic Acid 1.1 mmol/L (0.5-2.0)
[2022-11-18] MEDS: Piperacillin Sodium/Tazobactam 3.375 GM in 0.9 % Sodium Chloride 50 ML IV ×2 (15:49→21:53)
[2022-11-18] MEDS: Lactated Ringers 1,000 ML 80 ML IVCONT (16:21)
--- NOTE | 2022-11-18 17:51 | HO.PM.IMCN ---
History of Present Illness Data of Consult Service Date: 11/18/22 Requesting physician: Doroteo Humphries Primary Care Provider: MD YONATHAN Hahn Reason for consult: medical management 67-year-old female with history of unspecified arthritis, pemphigus vulgaris on chronic presnisone, Jeff's thyroiditis, and hypertension admitted to General surgery for management of possible cholecystitis with consult placed to hospitalist service for medical management. The patient is from [facility] and tells me she is taking methotrexate and mycophenolate for diffuse pains related to arthritis, unable to specify the type of arthritis. She tells me she goes back to [facility] at every 6 months for rituximab infusions. She currently has no complaints. Denies any alcohol use, illicit drug use, or cigarette smoking. Pt's is present during exam. Tajik interpretor used. Review of Systems Review of Systems: Yes all other systems are reviewed and are negative [facility] Medical History Arthritis Abdominal pain PAD (peripheral artery disease) Jeff's thyroiditis Pemphigus vulgaris Family History Mother Diabetes Surgical History H/O: hysterectomy Social History Household Members: Spouse Alcohol intake: never Patient Tobacco Use Status: Former Tobacco user e-Cigarette/Vaping Use: Never Used Advance Directives: No Advance Directives Information Provided: Yes service: No Current occupational status: retired Meds Allergies Allergy/AdvReac Type Severity Reaction Status Date / Time No Known Allergies Allergy Verified 05/07/22 14:53 Active Medications: Current Medications Lactated Ringer's (Lr) 1,000 mls @ 80 mls/hr IVCONT .[id number] [facility] Last Admin: 11/18/22 16:21 Dose: 80 mls/hr Piperacillin Sod/Tazobactam (Sod 3.375 gm/ Sodium Chloride) 50 mls @ 100 mls/hr IV Q6H [facility] Last Infusion: 11/18/22 16:21 Dose: Infused Levothyroxine Sodium (Levothyroxine Sodium 50 Mcg Tablet) 50 mcg PO DAILY@0600 [facility] Morphine Sulfate (Morphine Sulfate 4 Mg/Ml Cartridge) 3 mg IVPUSH Q4H PRN; Protocol PRN Reason: Pain, Severe (Pain Scale 7-10) Ondansetron HCl (Ondansetron Hcl 4 Mg/2 Ml Vial) 4 mg IVPUSH Q8H PRN PRN Reason: nausea Sodium Chloride (0.9 % Sodium Chloride Flush 3 Ml Syringe) 3 ml IVFLUSH QSHIFT [facility] Last Admin: 11/18/22 16:21 Dose: Not Given Home Medications Medication Instructions Recorded Confirmed Last Taken Type folic acid 1 mg tablet 10 mg PO DAILY 03/24/22 11/18/22 03/23/22 History levothyroxine 50 mcg tablet 50 mcg PO DAILY 03/24/22 11/18/22 11/18/22 History (Euthyrox) methotrexate sodium 2.5 mg tablet 2.5 mg PO TU@0900 03/24/22 11/18/22 11/11/22 History methotrexate sodium 2.5 mg tablet 5 mg PO MO@89903/24/22 11/18/22 11/17/22 History mycophenolate mofetil 500 mg tablet 500 mg PO BID 03/24/22 11/18/22 03/23/22 History prednisone 5 mg tablet 5 mg PO DAILY 03/24/22 11/18/22 03/23/22 History quetiapine 25 mg tablet 12.5 mg PO BEDTIME 03/24/22 11/18/22 03/23/22 History bisoprolol fumarate 10 mg tablet 5 mg PO QAM 11/18/22 11/18/22 11/18/22 History calcium carbonate 500 mg calcium 500 mg PO DAILY 11/18/22 11/18/22 Unknown History (1,250 mg) tablet zolpidem 10 mg tablet (Ambien) 10 mg PO BEDTIME PRN Insomnia 11/18/22 11/18/22 Unknown History Physical Exam Vital Signs and Narrative: Vital Signs: Last Vital Signs Temp 98.0 F 11/18/22 15:29 Pulse 68 11/18/22 15:29 Resp 16 11/18/22 15:29 BP 119/69 11/18/22 15:29 Pulse Ox 97 11/18/22 15:29 O2 Del Method Room Air 11/18/22 15:29 BMI result Body Mass Index 32.0 Constitutional - Awake and Alert, No apparent distress Eyes - PERRLA, EOMI Cardiovascular - S1S2, RRR, No edema Respiratory - Normal lung expansion, Normal respiratory effort, No respiratory distress, CTA bilaterally Extremities - no calf tenderness bilaterally, no swelling Skin - Warm/Dry Neurological - Alert & oriented x3 Psychological - Appropriate affect Results Labs 11/18/22 10:32 11/18/22 10:32 Labs: Laboratory Results - last 24 hr 11/18/22 11/18/22 11/18/22 10:32 14:45 15:25 MCV 91.8 MCH 28.3 MCHC 30.8 L RDW 14.2 Plt Count 360 D MPV 9.9 Immature Gran % (Auto) 1.2 H Neut % (Auto) 74.2 H Lymph % (Auto) 15.2 L [place] % (Auto) 7.1 Eos % (Auto) 1.8 Baso % (Auto) 0.5 Lymph # (Auto) 1.8 [place] # (Auto) 0.9 Eos # (Auto) 0.2 Baso # (Auto) 0.1 Abs Immat Gran (auto) 0.14 H Absolute Neuts (auto) 9.0 H Absolute Nucleated RBC 0.000 Nucleated RBC % (auto) 0.0 Anion Gap 14 Estim Creat Clear Calc 42.3 Estimated GFR 48 Random Glucose 105 Lactic Acid 1.1 Calcium 9.6 Total Bilirubin 0.3 AST 12 ALT 11 Alkaline Phosphatase 67 Total Protein 7.5 Albumin 3.5 Lipase 41 Urine Color Yellow Urine Appearance Clear Urine pH 5.5 Ur Specific [place] >= 1.030 H Urine Protein Negative Urine Glucose (UA) Negative Urine Ketones Negative Urine Blood Trace H Urine Nitrite Negative Ur Leukocyte Esterase Small (1+) H Urine RBC 6-10 H Urine WBC 11-20 H Ur Squamous Epith Cells 3-5 Calcium Oxalate Crystal Present Urine Bacteria None Seen Hyaline Casts 0-2 Imaging Radiologist's Impressions: Impressions Abdomen/Pelvis CT 11/18/22 14:10 IMPRESSION: Gallstones within a thickened gallbladder with pericholecystic infiltration. Suspect cholecystitis. Retained stool. No other significant abnormality seen. Fleischner guidelines were followed. Assessment and Plan (1) Cholecystitis: Status: Acute Plan 67-year-old female with history of unspecified arthritis, pemphigus vulgaris on chronic presnisone, Jeff's thyroiditis, and hypertension admitted to General surgery for management of possible cholecystitis with consult placed to hospitalist service for medical management. #Acute cholecystitis -plan for general surgery # pemphigus vulgaris -hold mycophenolate in setting of possible acute infection -continue prednisone # unspecified arthritis -methotrexate on hold per General surgery. Not to for another 5 days # Jeff's thyroiditis -continue levothyroxine #Chronic leukocytosis -likely r/t chronic steroid use vs infection -as above Thank you for allowing me to participate in this consult. Will continuing following. Time Spent With Patient Time: Total time managing care of this patient today ____ minutes.
[2022-11-18 18:34] VITALS: BMI 31.9
[2022-11-18 18:42] VITALS: BP 141/65; PULSE 59; RESP 18; TEMP 36; O2SAT 98
[2022-11-18 21:51] VITALS: BMI 32.0
[2022-11-18] MEDS: Zolpidem Tartrate 5 MG TABLET 10 MG PO (22:03)
[2022-11-19] VITALS (15 sets, daily range): BP systolic 105–145; BP diastolic 52–70; PULSE 59–95; RESP 9–20; TEMP 36–37; O2SAT 94–99
[2022-11-19] MEDS: Piperacillin Sodium/Tazobactam 3.375 GM in 0.9 % Sodium Chloride 50 ML IV ×4 (03:58→22:19)
[2022-11-19] MEDS: Lactated Ringers 1,000 ML 80 ML IVCONT (03:59)
[2022-11-19] MEDS: Levothyroxine Sodium 50 MCG TABLET PO (05:10)
[2022-11-19 06:08] LABS: Hematocrit 35.7 % (37.0-47.0); Hemoglobin 10.9 g/dl (12.0-16.0); Mean Corpuscular HGB Conc 30.5 g/dl (31.0-35.0); Mean Corpuscular Hemoglobin 28.5 pg (27.0-33.0); Mean Corpuscular Volume 93.2 fL (80.0-98.0); Mean Platelet Volume 10.5 fL (9.4-12.3); Platelet Count 279 X10*3/uL (160-400); Red Blood Count 3.83 X10*6/uL (4.20-5.50); Red Cell Distribution Width 14.4 % (11.0-16.0); White Blood Count 11.1 X10*3/uL (4.8-10.8)
[2022-11-19 06:33] LABS: Alanine Aminotransferase 21 U/L (0-31); Albumin Level 2.9 g/dL (3.5-5.0); Alkaline Phosphatase 60 U/L (39-117); Anion Gap 10 (12-20); Aspartate Amino Transferase 19 U/L (5-31); Bilirubin Total 0.5 mg/dL (0.0-1.0); Blood Urea Nitrogen 11 mg/dL (9-16); Calcium 8.6 mg/dL (8.4-10.2); Carbon Dioxide 26 mmol/L (22-29); Chloride 107 mmol/L (96-108); Creatinine Clr Calc Pharmacy 57.6; Estimated Glomerular Filt Rate > 60; Glucose Random 82 mg/dL (60-115); Potassium 4.2 mmol/L (3.3-5.1); Sodium 139 mmol/L (135-145)
--- NOTE | 2022-11-19 09:28 | PM.EVENT ---
Event Note Date of Service: 11/19/22 Event Note: She states that she feels better She has a pain on the right upper quadrant Abdomen remained soft and benign Mild tenderness right upper quadrant Repeat labs unremarkable, LFTs normal I have reviewed her CAT scan with the radiologist -inflammatory changes in the gallbladder suggestive of acute cholecystitis The patient wants to proceed with cholecystectomy She understands the technique of laparoscopic cholecystectomy and possible conversion to open She has given consent Time Spent With Patient Time: Total time managing care of this patient today ____ minutes.
[2022-11-19] MEDS: mycophenolate mofetiL 250 MG CAPSULE 500 MG PO ×2 (09:39→20:06)
[2022-11-19] MEDS: Metoprolol Tartrate 25 MG TABLET PO ×2 (09:39→20:06)
[2022-11-19] MEDS: Hydrocortisone Sod Succ/PF 100 MG VIAL 50 MG IVPUSH (09:40)
[2022-11-19] MEDS: Morphine Sulfate 4 MG/ML CARTRIDGE 3 MG IVPUSH ×2 (09:41→18:54)
[2022-11-19] MEDS: ondansetron HCL 4 MG/2 ML VIAL IVPUSH (09:48)
[2022-11-19] MEDS: 0.9 % Sodium Chloride Flush 3 ML SYRINGE IVFLUSH ×2 (09:48→17:13)
--- NOTE | 2022-11-19 09:57 | MHC.CM.PN ---
pt lives with family is independent has ride home dc plan home no services
--- NOTE | 2022-11-19 10:51 | P.PNIM_ITS ---
Subjective Subjective Date of Service: 11/19/22 Interval History: This history was taken in Ukrainian from the patient. RUQ pain NPO for OR on prednisone 5 mg/d since 2016 Review of Systems Review of Systems: Yes all other systems are reviewed and are negative Physical Exam 2 Vital Signs: Vital Signs: Last Vital Signs Temp 97.1 F 11/19/22 07:31 Pulse 63 11/19/22 07:31 Resp 16 11/19/22 07:31 BP 139/67 11/19/22 07:31 Pulse Ox 94 11/19/22 07:31 O2 Del Method Room Air 11/19/22 07:31 BMI result Body Mass Index 32.0 Gen: in no acute distress HEENT: sclera anicteric, moist mucus membranes Neck: supple Lungs: clear to auscultation bilaterally Heart: regular rate and rhythm, no murmurs Abd: soft, RUQ tender, non-distended Ext: no edema Skin: warm/well-perfused Neuro: alert and oriented x3, no focal findings Psych: appropriate affect Objective Data Active Medications Calcium Carbonate (Calcium Carbonate 500 Mg Tablet) 500 mg PO DAILY [facility] Last Admin: 11/19/22 09:48 Dose: Not Given Documented By: PERCY Non-Admin Reason: NPO Folic Acid (Folic Acid 1 Mg Tablet) 10 mg PO DAILY [facility] Last Admin: 11/19/22 09:49 Dose: Not Given Documented By: PERCY Non-Admin Reason: NPO Hydrocortisone Sodium Succinate (Hydrocortisone Sod Succ/Pf 100 Mg Vial) 25 mg IVPUSH Q8H [facility] Stop: 11/20/22 12:01 Lactated Ringer's (Lr) 1,000 mls @ 80 mls/hr IVCONT .[id number] [facility] Last Infusion: 11/19/22 10:07 Dose: 0 mls/hr Documented By: PERCY Piperacillin Sod/Tazobactam (Sod 3.375 gm/ Sodium Chloride) 50 mls @ 100 mls/hr IV Q6H [facility] Last Admin: 11/19/22 10:07 Dose: 100 mls/hr Documented By: PERCY Levothyroxine Sodium (Levothyroxine Sodium 50 Mcg Tablet) 50 mcg PO DAILY@0600 [facility] Last Admin: 11/19/22 05:10 Dose: 50 mcg Documented By: LUANNE Methotrexate (Methotrexate Sodium 2.5 Mg Tablet) 5 mg PO MO@0900 [facility] Methotrexate (Methotrexate Sodium 2.5 Mg Tablet) 2.5 mg PO TU@0900 [facility] Metoprolol Tartrate (Metoprolol Tartrate 25 Mg Tablet) 25 mg PO BID [facility] Last Admin: 11/19/22 09:39 Dose: 25 mg Documented By: PERCY Morphine Sulfate (Morphine Sulfate 4 Mg/Ml Cartridge) 3 mg IVPUSH Q4H PRN; Protocol PRN Reason: Pain, Severe (Pain Scale 7-10) Last Admin: 11/19/22 09:41 Dose: 3 mg Documented By: PERCY Mycophenolate Mofetil (Mycophenolate Mofetil 250 Mg Capsule) 500 mg PO BID [facility] Last Admin: 11/19/22 09:39 Dose: 500 mg Documented By: PERCY Ondansetron HCl (Ondansetron Hcl 4 Mg/2 Ml Vial) 4 mg IVPUSH Q8H PRN PRN Reason: nausea Last Admin: 11/19/22 09:48 Dose: 4 mg Documented By: PERCY Prednisone (Prednisone 5 Mg Tablet) 5 mg PO DAILY [facility] Quetiapine Fumarate (Quetiapine Fumarate 25 Mg Tablet) 12.5 mg PO BEDTIME [facility] Sodium Chloride (0.9 % Sodium Chloride Flush 3 Ml Syringe) 3 ml IVFLUSH QSHIFT [facility] Last Admin: 11/19/22 09:48 Dose: 3 ml Documented By: PERCY Zolpidem Tartrate (Zolpidem Tartrate 5 Mg Tablet) 10 mg PO BEDTIME PRN PRN Reason: Insomnia Last Admin: 11/18/22 22:03 Dose: 10 mg Documented By: LUANNE Labs 11/19/22 05:20 11/19/22 05:20 Labs: Laboratory Results - last 24 hr 11/18/22 11/18/22 11/18/22 10:32 14:45 15:25 MCV MCH MCHC RDW Plt Count MPV Absolute Nucleated RBC Nucleated RBC % (auto) Anion Gap 14 Estim Creat Clear Calc 42.3 Estimated GFR 48 Random Glucose 105 Lactic Acid 1.1 Calcium 9.6 Total Bilirubin 0.3 AST 12 ALT 11 Alkaline Phosphatase 67 Total Protein 7.5 Albumin 3.5 Lipase 41 Urine Color Yellow Urine Appearance Clear Urine pH 5.5 Ur Specific [place] >= 1.030 H Urine Protein Negative Urine Glucose (UA) Negative Urine Ketones Negative Urine Blood Trace H Urine Nitrite Negative Ur Leukocyte Esterase Small (1+) H Urine RBC 6-10 H Urine WBC 11-20 H Ur Squamous Epith Cells 3-5 Calcium Oxalate Crystal Present Urine Bacteria None Seen Hyaline Casts 0-2 11/19/22 05:20 MCV 93.2 MCH 28.5 MCHC 30.5 L RDW 14.4 Plt Count 279 MPV 10.5 Absolute Nucleated RBC 0.000 Nucleated RBC % (auto) 0.0 Anion Gap 10 L Estim Creat Clear Calc 57.6 Estimated GFR > 60 Random Glucose 82 Lactic Acid Calcium 8.6 D Total Bilirubin 0.5 AST 19 ALT 21 Alkaline Phosphatase 60 Total Protein 6.0 L Albumin 2.9 L Lipase Urine Color Urine Appearance Urine pH Ur Specific [place] Urine Protein Urine Glucose (UA) Urine Ketones Urine Blood Urine Nitrite Ur Leukocyte Esterase Urine RBC Urine WBC Ur Squamous Epith Cells Calcium Oxalate Crystal Urine Bacteria Hyaline Casts Assessment and Plan (1) Cholecystitis: Status: Acute Plan d2 67yo F with 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 mg/d since 2015, mycophenolate, and methotrexate; HTN; 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 Surg for cholecystitis hospitalist consult for management of comorbid medical conditions acute cholecystitis - pip-catarino d2, follow BCx, OR today for lap vj pemphigus vulgaris with steroid dependence - will give stress-dose HCT 50 mg IV just prior to surgery, then 25 mg IV q8h x3 doses, then resume home dose of prednisone 5 mg/d - continue mycophenolate mofetil + methotrexate Hashimotos' disease - continue LT4 HTN - continue metoprolol [equivalent to home dose bisoprolol] VTE ppx - SCDs dispo - TBD In my clinical judgment, the patient requires continued inpatient hospitalization for the following reasons: operative management Time Spent With Patient Time: Total time managing care of this patient today __45_ minutes. Quality Stroke Does the patient have a stroke diagnosis?: No VTE Prior VTE?: No VTE Risk Level:: Medical - moderate - high VTE Device Contraindication: N/A - Device Ordered VTE Drug Contraindication: Treatment Not Indicated
--- NOTE | 2022-11-19 13:04 | HO.ANESPROP2 ---
HPI - Anesthesia Eval Consult details Narrative: for lap. cholecystectomy PMFSH Active Problems Active Problems: All Active Problems (Updated 11/18/22 @ 17:55 by MERT Montero) Cholecystitis (Acute) Abdominal pain (Acute) Foot ulcer, left (Acute) Osteomyelitis (Acute) Past Medical History Medical History Arthritis Abdominal pain PAD (peripheral artery disease) Jeff's thyroiditis Pemphigus vulgaris Family History Family History Mother Diabetes Family history of problems with anesthesia: No Surgical History Surgical History H/O: hysterectomy History of Problems with Anesthesia: No Social History Social History Household Members: Spouse Housing: Apartment Do you presently have visiting nurse or other home services: No Alcohol intake: never Patient Tobacco Use Status: Former Tobacco user e-Cigarette/Vaping Use: Never Used Second Hand Smoke Exposure: No service: No Current occupational status: [employer] Allergies Allergy/AdvReac Type Severity Reaction Status Date / Time No Known Allergies Allergy Verified 05/07/22 14:53 Active Medications: Current Medications Calcium Carbonate (Calcium Carbonate 500 Mg Tablet) 500 mg PO DAILY [facility] Last Admin: 11/19/22 09:48 Dose: Not Given Folic Acid (Folic Acid 1 Mg Tablet) 10 mg PO DAILY [facility] Last Admin: 11/19/22 09:49 Dose: Not Given Hydrocortisone Sodium Succinate (Hydrocortisone Sod Succ/Pf 100 Mg Vial) 25 mg IVPUSH Q8H [facility] Stop: 11/20/22 12:01 Lactated Ringer's (Lr) 1,000 mls @ 80 mls/hr IVCONT .[id number] [facility] Last Infusion: 11/19/22 10:07 Dose: 0 mls/hr Piperacillin Sod/Tazobactam (Sod 3.375 gm/ Sodium Chloride) 50 mls @ 100 mls/hr IV Q6H [facility] Last Infusion: 11/19/22 12:19 Dose: Infused Levothyroxine Sodium (Levothyroxine Sodium 50 Mcg Tablet) 50 mcg PO DAILY@0600 [facility] Last Admin: 11/19/22 05:10 Dose: 50 mcg Methotrexate (Methotrexate Sodium 2.5 Mg Tablet) 5 mg PO MO@09 [facility] Methotrexate (Methotrexate Sodium 2.5 Mg Tablet) 2.5 mg PO TU@899 [facility] Metoprolol Tartrate (Metoprolol Tartrate 25 Mg Tablet) 25 mg PO BID [facility] Last Admin: 11/19/22 09:39 Dose: 25 mg Morphine Sulfate (Morphine Sulfate 4 Mg/Ml Cartridge) 3 mg IVPUSH Q4H PRN; Protocol PRN Reason: Pain, Severe (Pain Scale 7-10) Last Admin: 11/19/22 09:41 Dose: 3 mg Mycophenolate Mofetil (Mycophenolate Mofetil 250 Mg Capsule) 500 mg PO BID [facility] Last Admin: 11/19/22 09:39 Dose: 500 mg Ondansetron HCl (Ondansetron Hcl 4 Mg/2 Ml Vial) 4 mg IVPUSH Q8H PRN PRN Reason: nausea Last Admin: 11/19/22 09:48 Dose: 4 mg Prednisone (Prednisone 5 Mg Tablet) 5 mg PO DAILY [facility] Quetiapine Fumarate (Quetiapine Fumarate 25 Mg Tablet) 12.5 mg PO BEDTIME [facility] Sodium Chloride (0.9 % Sodium Chloride Flush 3 Ml Syringe) 3 ml IVFLUSH QSHIFT [facility] Last Admin: 11/19/22 09:48 Dose: 3 ml Zolpidem Tartrate (Zolpidem Tartrate 5 Mg Tablet) 10 mg PO BEDTIME PRN PRN Reason: Insomnia Last Admin: 11/18/22 22:03 Dose: 10 mg Home Medications Medication Instructions Recorded Confirmed Last Taken Type folic acid 1 mg tablet 10 mg PO DAILY 03/24/22 11/18/22 03/23/22 History levothyroxine 50 mcg tablet 50 mcg PO DAILY 03/24/22 11/18/22 11/18/22 History (Euthyrox) methotrexate sodium 2.5 mg tablet 2.5 mg PO TU@89903/24/22 11/18/22 11/11/22 History methotrexate sodium 2.5 mg tablet 5 mg PO MO@89903/24/22 11/18/22 11/17/22 History mycophenolate mofetil 500 mg tablet 500 mg PO BID 03/24/22 11/18/22 03/23/22 History prednisone 5 mg tablet 5 mg PO DAILY 03/24/22 11/18/22 03/23/22 History quetiapine 25 mg tablet 12.5 mg PO BEDTIME 03/24/22 11/18/22 03/23/22 History bisoprolol fumarate 10 mg tablet 5 mg PO QAM 11/18/22 11/18/22 11/18/22 History calcium carbonate 500 mg calcium 500 mg PO DAILY 11/18/22 11/18/22 Unknown History (1,250 mg) tablet zolpidem 10 mg tablet (Ambien) 10 mg PO BEDTIME PRN Insomnia 11/18/22 11/18/22 Unknown History Exam Exam Date and Time: November 19, 2022 1304 Height,Weight and Vital Signs: Height 4 ft 11.84 in Weight 74 kg Last Vital Signs Temp 96.9 F 11/19/22 12:48 Pulse 62 11/19/22 12:48 Resp 16 11/19/22 12:48 BP 141/67 H 11/19/22 12:48 Pulse Ox 97 11/19/22 12:48 O2 Del Method Room Air 11/19/22 12:48 Pertinent Lab Results Pertinent Lab Results: Laboratory Tests 11/18/22 11/18/22 11/18/22 10:32 14:45 15:25 WBC 12.1 H RBC 4.28 Hgb 12.1 Hct 39.3 MCV 91.8 MCH 28.3 MCHC 30.8 L RDW 14.2 Plt Count 360 D MPV 9.9 Immature Gran % (Auto) 1.2 H Neut % (Auto) 74.2 H Lymph % (Auto) 15.2 L [place] % (Auto) 7.1 Eos % (Auto) 1.8 Baso % (Auto) 0.5 Lymph # (Auto) 1.8 [place] # (Auto) 0.9 Eos # (Auto) 0.2 Baso # (Auto) 0.1 Abs Immat Gran (auto) 0.14 H Absolute Neuts (auto) 9.0 H Absolute Nucleated RBC 0.000 Nucleated RBC % (auto) 0.0 Sodium 141 Potassium 3.5 Chloride 107 Carbon Dioxide 24 Anion Gap 14 BUN 16 Creatinine 1.13 Estim Creat Clear Calc 42.3 Estimated GFR 48 Random Glucose 105 Lactic Acid 1.1 Calcium 9.6 Total Bilirubin 0.3 AST 12 ALT 11 Alkaline Phosphatase 67 Total Protein 7.5 Albumin 3.5 Lipase 41 Urine Color Yellow Urine Appearance Clear Urine pH 5.5 Ur Specific [place] >= 1.030 H Urine Protein Negative Urine Glucose (UA) Negative Urine Ketones Negative Urine Blood Trace H Urine Nitrite Negative Ur Leukocyte Esterase Small (1+) H Urine RBC 6-10 H Urine WBC 11-20 H Ur Squamous Epith Cells 3-5 Calcium Oxalate Crystal Present Urine Bacteria None Seen Hyaline Casts 0-2 11/19/22 05:20 WBC 11.1 H RBC 3.83 L Hgb 10.9 L Hct 35.7 L MCV 93.2 MCH 28.5 MCHC 30.5 L RDW 14.4 Plt Count 279 MPV 10.5 Immature Gran % (Auto) Neut % (Auto) Lymph % (Auto) [place] % (Auto) Eos % (Auto) Baso % (Auto) Lymph # (Auto) [place] # (Auto) Eos # (Auto) Baso # (Auto) Abs Immat Gran (auto) Absolute Neuts (auto) Absolute Nucleated RBC 0.000 Nucleated RBC % (auto) 0.0 Sodium 139 Potassium 4.2 Chloride 107 Carbon Dioxide 26 Anion Gap 10 L BUN 11 Creatinine 0.83 Estim Creat Clear Calc 57.6 Estimated GFR > 60 Random Glucose 82 Lactic Acid Calcium 8.6 D Total Bilirubin 0.5 AST 19 ALT 21 Alkaline Phosphatase 60 Total Protein 6.0 L Albumin 2.9 L Lipase Urine Color Urine Appearance Urine pH Ur Specific [place] Urine Protein Urine Glucose (UA) Urine Ketones Urine Blood Urine Nitrite Ur Leukocyte Esterase Urine RBC Urine WBC Ur Squamous Epith Cells Calcium Oxalate Crystal Urine Bacteria Hyaline Casts Airway Mallampati Class: II TM Dist: <=3cm Neck ROM: Full Partial: Upper Heart: ok Lungs: ok Assessment and Plan Assessment Anesthesia Assessment: Anesthesia Plan Discussed and Chart Reviewed Final Anesthetic Review Family History of Problems with Anesthesia: No History of Problems with Anesthesia: No NPO: Yes ASA Class: III Final Preanesthetic Review: No Changes in Pt Med Stat, Meds/Allgs Chart Reviewed, Consent Obtained/Reviewed and Anes Risks/Benef Reviewed Patient Risk: Intermediate Procedure Risk: Intermediate Anesthetic Plan Anesthetic Plan: GA and Agree w/ Assess. and Plan Disposition: Standard PACU
--- NOTE | 2022-11-19 15:26 | W.PM.OPN ---
Operative Note Operative Note Date of Service: 11/19/22 Narrative: Preop diagnosis: Acute cholecystitis Postop diagnosis: Acute cholecystitis, with densely adherent omentum, duodenum and adverse colon, severe inflammatory changes surrounding the fundus of the gallbladder; note of enterotomy on the transverse colon Procedure: Attempted laparoscopic cholecystectomy, converted to open lysis of adhesions, repair of enterotomy in the transverse colon, placement of cholecystostomy tube drain, placement of drain in the subhepatic space Surgeon: Doroteo Humphries MD assistant branch operations manager: MD MERT Bnenett The patient is a 67 year female admitted late yesterday because of acute cholecystitis on a CT scan and ultrasound. She had described periodic right upper quadrant pain for about 3 weeks. She actually did not more have Trammell's sign admission. However, review of her CT scan with the radiologist did show significant inflammatory changes in the fundus of the gallbladder with edema the wall on this area. She wanted to proceed with cholecystectomy. She understood the technique of the planned procedure as well as the risks, benefits, and alternatives. Her daughter was involved with discussions. She was brought to the operating room. She was placed supine general anesthesia via endotracheal tube. The abdomen is prepped and draped in the sterile fashion. A surgical time-out was done. The patient was on scheduled IV Zosyn. During the time-out for the procedure, it was noted that the preprinted consent form had the incorrect procedure written. This was pointed out to the entire OR crew. Everybody was in agreement that the patient had consented for laparoscopic cholecystectomy possible open cholecystectomy. The entire OR crew was comfortable with proceeding with the planned surgery. I made a short supraumbilical incision using blade 15. This carried down through the full-thickness of the skin subcutaneous fat to the fascia. The fascia was incised. The peritoneum was entered. Through this incision a Ernst port was introduced. With laparoscopic visualization using a 10 mm port, inserted a 5/12 mm port in the epigastric area below the subcostal margin, and 2 5 mm ports in the subcostal margin along the anterior axillary line and the midclavicular line. Graspers were placed through these working ports but the patient was placed in head-up and [id number] position. Examination of the right upper quadrant showed a lot of inflammatory changes in the liver edge. Gallbladder could not be identified at this appeared to be wrapped with thick, indurated omentum. The duodenum was also seen to be tented by these inflammatory changes towards the liver. I therefore proceeded to gently break down this indurated omentum off of this subhepatic space. I had to use fissure at some point to dissect this gently. By doing so I was able to visualize a window showing the fundus of the gallbladder. I gently follow this carefully dissected the omentum bluntly off of the fundus. However, as we went further from the fundus, the omentum was noted to be more markedly adherent and indurated we could not identify any good plane of dissection to separate the omentum off of the rest of the fundus. Furthermore, the duodenum was also intimately adherent to the rest of the liver and the omentum immediately adjacent to the gallbladder. At this point therefore since we had been carefully attempted to dissect, I felt that we could not even more progress laparoscopically so I converted to an open procedure. I desufflated and removed all ports. I made a subcostal incision on the right side using blade 15 and this was carried down with electrocautery through the full-thickness of skin subcutaneous fat. I divided the anterior sheath all the way laterally past the rectus. I then proceeded to divide the rectus muscle as well as the posterior sheath to enter the peritoneum. I applied retractors allowed exposure of the liver and the subhepatic space. I was able to visualize the gallbladder. Again, only the fundus of the gallbladder could be exposed at this time. We continue to try to attempt to allow further dissection but duodenum was very adherent 1 side the gallbladder and the omentum was wrapping around the rest of the completely. Adjacent to the gallbladder inferiorly, the hepatic flexure of the transverse colon was also seen. We carefully tried to separate this as well. However, on inspection, a notice that there was a small enterotomy measuring about 7 mm on the colon. I therefore had to repair this only in 2 layers. I placed a running Polysorb 3-0 stitch full-thickness fashion, and imbricated this with seromuscular polyps of 2-0 running stitch. I then proceeded to see if we can do further dissection of the rest of the gallbladder. At this point we already had a 2nd surgeon, Dr. Chatterjee assisting. the duodenum and the rest of the time was severely adherent to the rest of the gallbladder and we could not go further than the fundus safely. At this point, weighing our options, I decided to just proceed with a cholecystostomy tube placement in view of the high risk of further injury to adjacent organs with persistent dissection. We made small opening on the gallbladder wall to enter the lumen. Applied silk 2-0 pursestring stitch. I positioned a T-tube drain that would trimmed earlier, into the lumen of the gallbladder. This was brought out through an exit site of the incision on the anterior abdominal wall. This to was secured to the skin with a nylon 3-0 stitch A HERACLIO 7 drain was also positioned in the subhepatic space immediately adjacent to the gallbladder as well as the enterotomy site.This drain was also secured to skin with nylon 3-0 stitch. We had irrigated. Once hemostasis was confirmed, I proceeded to then close the posterior sheath a running polyps of 0 stitch. Anterior sheath was closed with a running Maxon 1 stitch. The fascia of the umbilical incision was closed with [id number] history of 0 stitch All skin incisions were closed with skin chang. The incisions were infiltrated with Marcaine 0.5% for postop CHARLES. Dressings were applied. The procedure was completed The patient tolerated procedure well. There were no immediate complications. Initial and final counts of sponges and instruments were correct. Estimated blood loss was about 100 cc. The patient was extubated without difficulty and transferred to the recovery room with stable vital signs.
--- NOTE | 2022-11-19 16:20 | PM.EVENT ---
Event Note Date of Service: 11/19/22 Event Note: pt seen postop attempted lap vj this afternoon, but duodenum, omentum and transverse colon densely adherent to GB subcostal incision made - cholecystotomy tube placed, HERACLIO drain on subhepatic space; enterotomy on transverse colon repaired pain mgt continue Zosyn may have other inflammatory process ongoing adjacent to GB - ?duodenum pt has been on chronic prednisone - stress doses ordered by [facility] daughter Shauna updated Time Spent With Patient Time: Total time managing care of this patient today ____ minutes.
[2022-11-19] MEDS: oxyCODONE HCl Immed Release 5 MG TABLET 10 MG PO (17:08)
[2022-11-19] MEDS: Omeprazole 20 MG CAPSULE.DR PO (17:08)
[2022-11-19] MEDS: Acetaminophen 1,000 MG/100 ML PIGGYBACK 400 MG IV ×2 (17:11→22:20)
[2022-11-19] MEDS: Metoclopramide HCl 10 MG/2 ML VIAL 5 MG IVPUSH (17:36)
--- NOTE | 2022-11-19 17:48 | PC.NURSE ---
Assumed care initially at 07:00. Patient alert, oriented, had 9/10 pain RUQ abdomen, tender abdomen to palpation, worse on inspiration, RA, some fine crackles to auscultation bilat bases. Patient went to OR, attempted lap vj, returned with T tube and HERACLIO drain instead. Patient returned from OR about 16:15, continued to have 7/10 pain RUQ and nausea, was 98% on 3 LPM oxygen, was weaned off oxygen to 97% on RA. Patient denies sob. Patient was still having nausea despite zofran at 15:04, discussed with and new order TO for reglan once 5 mg, was administerd with effect, MD ok'd override for interaction with seroquel potential based on low dose of reglan. Patient with PO oxycodone at about 16:45 with effect. Clear liquid diet.
[2022-11-19] MEDS: Hydrocortisone Sod Succ/PF 100 MG VIAL 25 MG IVPUSH (20:06)
[2022-11-19] MEDS: QUEtiapine Fumarate 25 MG TABLET 12.5 MG PO (20:07)
[2022-11-20 03:01] VITALS: BP 135/64; PULSE 75; RESP 16; TEMP 37.1; O2SAT 95
[2022-11-20] MEDS: Piperacillin Sodium/Tazobactam 3.375 GM in 0.9 % Sodium Chloride 50 ML IV ×4 (03:51→21:30)
[2022-11-20] MEDS: Hydrocortisone Sod Succ/PF 100 MG VIAL 25 MG IVPUSH ×2 (03:54→11:54)
[2022-11-20] MEDS: Acetaminophen 1,000 MG/100 ML PIGGYBACK 400 MG IV ×3 (03:55→18:52)
[2022-11-20] MEDS: Lactated Ringers 1,000 ML 80 ML IVCONT ×2 (04:46→15:53)
[2022-11-20] MEDS: Omeprazole 20 MG CAPSULE.DR PO ×2 (05:12→15:40)
[2022-11-20] MEDS: Levothyroxine Sodium 50 MCG TABLET PO (05:12)
[2022-11-20 07:27] VITALS: BP 148/67; PULSE 68; RESP 16; TEMP 36.1; O2SAT 95
--- NOTE | 2022-11-20 08:51 | P.PNGS_ITS ---
Subjective Subjective Date of Service: 11/20/22 <Kika Kenney PA-C - Last Filed: 11/20/22 09:02> 11/20/22 <Doroteo Humphries MD - Last Filed: 11/20/22 09:44> Interval history: Some mild incisional pain but comfortable with tylenol, feels overall improved. Has not been OOB. Tolerating clears without nausea or vomiting. < Kika Kenney PA-C - Last Filed: 11/20/22 09:02> Physical Exam 2 Vital Signs: Vital Signs: Last Vital Signs Temp 97.0 F 11/20/22 07:27 Pulse 68 11/20/22 07:27 Resp 16 11/20/22 07:27 BP 148/67 H 11/20/22 07:27 Pulse Ox 95 11/20/22 07:27 O2 Del Method Room Air 11/20/22 07:27 O2 Flow Rate 3.5 11/19/22 16:48 BMI result Body Mass Index 32.0 <Kika Kenney PA-C - Last Filed: 11/20/22 09:02> Const: General: comfortable, no acute distress and alert <Kika Kenney PA-C - Last Filed: 11/20/22 09:02> Orientation/consciousness: patient oriented x3 <Kika Kenney PA-C - Last Filed: 11/20/22 09:02> Resp: Effort & Inspection: normal respiratory effort <Kika Kenney PA-C - Last Filed: 11/20/22 09:02> Cardio: Rate: regular rate <Kika Kenney PA-C - Last Filed: 11/20/22 09:02> GI: Other: HERACLIO drain with serosanguineous drainage cholecystostomy tube with bilious drainage <MATT Cristobal Last Filed: 11/20/22 09:02> Inspection: No distended and Yes incision (dressing c/d/i) <MATT Cristobal Last Filed: 11/20/22 09:02> Skin: General skin exam: no rashes or lesions noted <MATT Cristobal Last Filed: 11/20/22 09:02> Neuro: General: patient oriented x3 and moves all extremities <Kika Kenney PA-C - Last Filed: 11/20/22 09:02> Objective Data Active Medications Calcium Carbonate (Calcium Carbonate 500 Mg Tablet) 500 mg PO DAILY [facility] Last Admin: 11/19/22 09:48 Dose: Not Given Documented By: PERCY Non-Admin Reason: NPO Fentanyl (Fentanyl Citrate/Pf 100 Mcg/2 Ml Vial) 50 mcg IVPUSH Q5M PRN; Protocol PRN Reason: Pain, Severe (Pain Scale 7-10) Folic Acid (Folic Acid 1 Mg Tablet) 10 mg PO DAILY [facility] Last Admin: 11/19/22 09:49 Dose: Not Given Documented By: PERCY Non-Admin Reason: NPO Hydrocortisone Sodium Succinate (Hydrocortisone Sod Succ/Pf 100 Mg Vial) 25 mg IVPUSH Q8H [facility] Stop: 11/20/22 12:01 Last Admin: 11/20/22 03:54 Dose: 25 mg Documented By: LUANNE Hydromorphone HCl (Hydromorphone Hcl 0.5 Mg/0.5 Ml Syringe) 0.5 mg IVPUSH Q5M PRN; Protocol PRN Reason: Pain, Severe (Pain Scale 7-10) Lactated Ringer's (Lr) 1,000 mls @ 80 mls/hr IVCONT .[id number] [facility] Last Admin: 11/20/22 04:46 Dose: 80 mls/hr Documented By: LUANNE Piperacillin Sod/Tazobactam (Sod 3.375 gm/ Sodium Chloride) 50 mls @ 100 mls/hr IV Q6H [facility] Last Infusion: 11/20/22 04:39 Dose: Infused Documented By: LUANNE Acetaminophen (Ofirmev) 1,000 mg in 100 mls @ 400 mls/hr IV Q6H [facility] Stop: 11/20/22 10:14 Last Infusion: 11/20/22 04:39 Dose: Infused Documented By: LUANNE Levothyroxine Sodium (Levothyroxine Sodium 50 Mcg Tablet) 50 mcg PO DAILY@0600 [facility] Last Admin: 11/20/22 05:12 Dose: 50 mcg Documented By: LUANNE Methotrexate (Methotrexate Sodium 2.5 Mg Tablet) 5 mg PO MO@0900 [facility] Methotrexate (Methotrexate Sodium 2.5 Mg Tablet) 2.5 mg PO TU@0900 [facility] Metoprolol Tartrate (Metoprolol Tartrate 25 Mg Tablet) 25 mg PO BID [facility] Last Admin: 11/19/22 20:06 Dose: 25 mg Documented By: LUANNE Morphine Sulfate (Morphine Sulfate 4 Mg/Ml Cartridge) 3 mg IVPUSH Q3H PRN; Protocol PRN Reason: Pain, Severe (Pain Scale 7-10) Last Admin: 11/19/22 18:54 Dose: 3 mg Documented By: PERCY Mycophenolate Mofetil (Mycophenolate Mofetil 250 Mg Capsule) 500 mg PO BID [facility] Last Admin: 11/19/22 20:06 Dose: 500 mg Documented By: LUANNE Omeprazole (Omeprazole 20 Mg Capsule.Dr) 20 mg PO BID@0630,1630 [facility] Last Admin: 11/20/22 05:12 Dose: 20 mg Documented By: LUANNE Ondansetron HCl (Ondansetron Hcl 4 Mg/2 Ml Vial) 4 mg IVPUSH Q8H PRN PRN Reason: nausea Last Admin: 11/19/22 09:48 Dose: 4 mg Documented By: PERCY Ondansetron HCl (Ondansetron Hcl 4 Mg/2 Ml Vial) 4 mg IVPUSH ONCE PRN PRN Reason: Nausea and Vomiting Oxycodone HCl (Oxycodone Hcl Immed Release 5 Mg Tablet) 10 mg PO Q4H PRN PRN Reason: Pain, Moderate(Pain Scale 4-6) Last Admin: 11/19/22 17:08 Dose: 10 mg Documented By: PERCY Prednisone (Prednisone 5 Mg Tablet) 5 mg PO DAILY [facility] Quetiapine Fumarate (Quetiapine Fumarate 25 Mg Tablet) 12.5 mg PO BEDTIME [facility] Last Admin: 11/19/22 20:07 Dose: 12.5 mg Documented By: LUANNE Sodium Chloride (0.9 % Sodium Chloride Flush 3 Ml Syringe) [facility] Last Admin: 11/19/22 23:49 Dose: Not Given Documented By: LUANNE Non-Admin Reason: IV Running Zolpidem Tartrate (Zolpidem Tartrate 5 Mg Tablet) 10 mg PO BEDTIME PRN PRN Reason: Insomnia Last Admin: 11/18/22 22:03 Dose: 10 mg Documented By: LUANNE <Kika Kenney PA-C - Last Filed: 11/20/22 09:02> Labs CBC & Chem 7: 11/19/22 05:20 11/19/22 05:20 <Kika Kenney PA-C - Last Filed: 11/20/22 09:02> Labs: Laboratory Results - last 24 hr 11/19/22 12:57 Blood Type A Positive Antibody Screen NEGATIVE <Kika Kenney PA-C - Last Filed: 11/20/22 09:02> Microbiology Microbiology Results: Microbiology 11/18/22 15:31 Blood Culture - Preliminary Blood - Venous No growth after 24 hours. 11/18/22 15:25 Blood Culture - Preliminary Blood - Venous No growth after 24 hours. 11/18/22 Unknown Urine Culture - Preliminary Urine clean catch - Urine ramos top Culture too young to evaluate. <Kika Kenney PA-C - Last Filed: 11/20/22 09:02> Procedures Date of Service Date of Service: 11/20/22 <Kika Kenney PA-C - Last Filed: 11/20/22 09:02> 11/20/22 <Doroteo Humphries MD - Last Filed: 11/20/22 09:44> Progress Note: A&P Assessment and plan (1) Cholecystitis: Status: Acute <Kika Kenney PA-C - Last Filed: 11/20/22 09:02> Assessment and Plan: Has been ambulating Feels well overall Pain control Looks well HERACLIO drain serosanguineous Cystostomy tube with bilious drain Plan to advance diet today and daughter updated Seen and examined independently <Doroteo Humphries MD - Last Filed: 11/20/22 09:44> Assessment and Plan: 67 year old female admitted with presumed acute cholecystitis now POD #1 s/p attempted laparoscopic cholecystectomy, converted to open lysis of adhesions, repair of enterotomy in the transverse colon, placement of cholecystostomy tube drain, placement of drain in the subhepatic space. She had densely adherent omentum, duodenum and transverse colon with severe inflammatory changes surrounding the fundus of the gallbladder. She is doing well post op and reports feeling improved. Abd benign with appropriate post op tenderness. HERACLIO drain with serosanguineous output, cholecystostomy tube with bilious output. Cont IV zosyn, advance to solid diet. Encouraged pain control as needed to get OOB and ambulate today, IS use. < Kika Kenney PA-C - Last Filed: 11/20/22 09:02> Time Spent With Patient Time: Total time managing care of this patient today ____ minutes. <Kika Kenney PA-C - Last Filed: 11/20/22 09:02> Quality Stroke Does the patient have a stroke diagnosis?: No <Kika Kenney PA-C - Last Filed: 11/20/22 09:02> VTE Prior VTE?: No <Kika Kenney PA-C - Last Filed: 11/20/22 09:02> VTE Risk Level:: Medical - moderate - high <MATT Cristobal Last Filed: 11/20/22 09:02> VTE Device Contraindication: N/A - Device Ordered <Kika Kenney PA-C - Last Filed: 11/20/22 09:02> VTE Drug Contraindication: Treatment Not Indicated <MATT Cristobal Last Filed: 11/20/22 09:02>
[2022-11-20] MEDS: mycophenolate mofetiL 250 MG CAPSULE 500 MG PO ×2 (09:25→21:20)
[2022-11-20] MEDS: Metoprolol Tartrate 25 MG TABLET PO ×2 (09:25→21:21)
[2022-11-20] MEDS: Folic Acid 1 MG TABLET 10 MG PO (09:26)
[2022-11-20] MEDS: 0.9 % Sodium Chloride Flush 3 ML SYRINGE IVFLUSH ×2 (09:26→15:40)
[2022-11-20] MEDS: oxyCODONE HCl Immed Release 5 MG TABLET 10 MG PO ×2 (09:37→23:28)
--- NOTE | 2022-11-20 09:48 | HO.PM.IMPN ---
Subjective Subjective Date of Service: 11/20/22 Interval History: pain/nausea controlled no dyspnea no chest pain This history was taken in Russian from the patient. Review of Systems Review of Systems: Yes all other systems are reviewed and are negative Physical Exam Vital Signs: Vital Signs: Last Vital Signs Temp 97.0 F 11/20/22 07:27 Pulse 68 11/20/22 07:27 Resp 16 11/20/22 07:27 BP 148/67 H 11/20/22 07:27 Pulse Ox 95 11/20/22 07:27 O2 Del Method Room Air 11/20/22 07:27 O2 Flow Rate 3.5 11/19/22 16:48 BMI result Body Mass Index 32.0 Gen: in no acute distress HEENT: sclera anicteric, moist mucus membranes Neck: supple Lungs: clear to auscultation bilaterally Heart: regular rate and rhythm, no murmurs Abd: dry surgical dressing, HERACLIO drain with serosanguineous drainage, cholecystostomy tube with bilious drainage Ext: no edema Skin: warm/well-perfused Neuro: alert and oriented x3, no focal findings Psych: appropriate affect Objective Data Active Medications Calcium Carbonate (Calcium Carbonate 500 Mg Tablet) 500 mg PO DAILY [facility] Last Admin: 11/20/22 09:25 Dose: 500 mg Documented By: LILIYA Fentanyl (Fentanyl Citrate/Pf 100 Mcg/2 Ml Vial) 50 mcg IVPUSH Q5M PRN; Protocol PRN Reason: Pain, Severe (Pain Scale 7-10) Folic Acid (Folic Acid 1 Mg Tablet) 10 mg PO DAILY [facility] Last Admin: 11/20/22 09:26 Dose: 1 mg Documented By: LILIYA Comments: patient takes 1mg per med list Hydrocortisone Sodium Succinate (Hydrocortisone Sod Succ/Pf 100 Mg Vial) 25 mg IVPUSH Q8H [facility] Stop: 11/20/22 12:01 Last Admin: 11/20/22 03:54 Dose: 25 mg Documented By: OLIVAORALEva Hydromorphone HCl (Hydromorphone Hcl 0.5 Mg/0.5 Ml Syringe) 0.5 mg IVPUSH Q5M PRN; Protocol PRN Reason: Pain, Severe (Pain Scale 7-10) Lactated Ringer's (Lr) 1,000 mls @ 80 mls/hr IVCONT .[id number] [facility] Last Admin: 11/20/22 04:46 Dose: 80 mls/hr Documented By: LUANNE Piperacillin Sod/Tazobactam (Sod 3.375 gm/ Sodium Chloride) 50 mls @ 100 mls/hr IV Q6H [facility] Last Infusion: 11/20/22 04:39 Dose: Infused Documented By: LUANNE Acetaminophen (Ofirmev) 1,000 mg in 100 mls @ 400 mls/hr IV Q6H [facility] Stop: 11/20/22 10:14 Last Admin: 11/20/22 09:25 Dose: 400 mls/hr Documented By: LILIYA Levothyroxine Sodium (Levothyroxine Sodium 50 Mcg Tablet) 50 mcg PO DAILY@0600 [facility] Last Admin: 11/20/22 05:12 Dose: 50 mcg Documented By: LUANNE Methotrexate (Methotrexate Sodium 2.5 Mg Tablet) 5 mg PO MO@0900 [facility] Methotrexate (Methotrexate Sodium 2.5 Mg Tablet) 2.5 mg PO TU@0900 [facility] Metoprolol Tartrate (Metoprolol Tartrate 25 Mg Tablet) 25 mg PO BID [facility] Last Admin: 11/20/22 09:25 Dose: 25 mg Documented By: LILIYA Morphine Sulfate (Morphine Sulfate 4 Mg/Ml Cartridge) 3 mg IVPUSH Q3H PRN; Protocol PRN Reason: Pain, Severe (Pain Scale 7-10) Last Admin: 11/19/22 18:54 Dose: 3 mg Documented By: PERCY Mycophenolate Mofetil (Mycophenolate Mofetil 250 Mg Capsule) 500 mg PO BID [facility] Last Admin: 11/20/22 09:25 Dose: 500 mg Documented By: LILIYA Omeprazole (Omeprazole 20 Mg Capsule.Dr) 20 mg PO BID@0630,1630 [facility] Last Admin: 11/20/22 05:12 Dose: 20 mg Documented By: LUANNE Ondansetron HCl (Ondansetron Hcl 4 Mg/2 Ml Vial) 4 mg IVPUSH Q8H PRN PRN Reason: nausea Last Admin: 11/19/22 09:48 Dose: 4 mg Documented By: PERCY Ondansetron HCl (Ondansetron Hcl 4 Mg/2 Ml Vial) 4 mg IVPUSH ONCE PRN PRN Reason: Nausea and Vomiting Oxycodone HCl (Oxycodone Hcl Immed Release 5 Mg Tablet) 10 mg PO Q4H PRN PRN Reason: Pain, Moderate(Pain Scale 4-6) Last Admin: 11/20/22 09:37 Dose: 10 mg Documented By: LILIYA Prednisone (Prednisone 5 Mg Tablet) 5 mg PO DAILY [facility] Quetiapine Fumarate (Quetiapine Fumarate 25 Mg Tablet) 12.5 mg PO BEDTIME [facility] Last Admin: 11/19/22 20:07 Dose: 12.5 mg Documented By: LUANNE Sodium Chloride (0.9 % Sodium Chloride Flush 3 Ml Syringe) 3 ml IVFLUSH QSHIFT [facility] Last Admin: 11/20/22 09:26 Dose: 3 ml Documented By: LILIYA Zolpidem Tartrate (Zolpidem Tartrate 5 Mg Tablet) 10 mg PO BEDTIME PRN PRN Reason: Insomnia Last Admin: 11/18/22 22:03 Dose: 10 mg Documented By: LUANNE Labs 11/19/22 05:20 11/19/22 05:20 Labs: Laboratory Results - last 24 hr 11/19/22 12:57 Blood Type A Positive Antibody Screen NEGATIVE Microbiology Microbiology Results: Microbiology 11/18/22 15:31 Blood Culture - Preliminary Blood - Venous No growth after 24 hours. 11/18/22 15:25 Blood Culture - Preliminary Blood - Venous No growth after 24 hours. 11/18/22 Unknown Urine Culture - Preliminary Urine clean catch - Urine ramos top Culture too young to evaluate. 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, mycophenolate, and methotrexate; HTN; 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 Surg for cholecystitis hospitalist consult for management of comorbid medical conditions acute cholecystitis - pip-catarino d3, follow BCx - attempted lap vj 11/19, converted to open LINDY/repair of enterotomy in transverse colon, placement of cholecystostomy tube and subhepatic HERACLIO drain due to densely adherent omentum, duodenum, and transverse colon with severe inflammatory changes surrounding the fundus of the gallbladder - advance diet per Gen Surg pemphigus vulgaris with steroid dependence - gave stress-dose HCT 50 mg IV just prior to surgery, then 25 mg IV q8h x3 doses; resume home dose of prednisone 5 mg/d tomorrow - continue mycophenolate mofetil + methotrexate Hashimotos' disease - continue LT4 HTN - continue metoprolol [equivalent to home dose bisoprolol] VTE ppx - SCDs dispo - TBD In my clinical judgment, the patient requires continued inpatient hospitalization for the following reasons: postop care Time Spent With Patient Time: Total time managing care of this patient today ____ minutes. Quality Stroke Does the patient have a stroke diagnosis?: No VTE Prior VTE?: No VTE Risk Level:: Medical - moderate - high VTE Device Contraindication: N/A - Device Ordered VTE Drug Contraindication: Treatment Not Indicated
[2022-11-20 11:33] VITALS: BP 138/65; PULSE 62; RESP 16; TEMP 36; O2SAT 98
[2022-11-20] MEDS: ondansetron HCL 4 MG/2 ML VIAL IVPUSH (11:57)
--- NOTE | 2022-11-20 14:16 | HO.POSTANES ---
Post Anesthesia Evaluation Post Anesthesia Evaluation Date of Service: 11/20/22 Vital Signs: Vital Signs Temp Pulse Resp BP Pulse Ox O2 Del Method 11/20/22 11:33 96.8 F 62 16 138/65 98 Room Air 11/20/22 07:27 97.0 F 68 16 148/67 H 95 Room Air 11/20/22 03:01 98.7 F 75 16 135/64 95 Room Air Anesthesia: General Endotracheal-GETA Mental Status: Awake Pain Control: Satisfactory Nausea/Vomiting: None Hydration: Adequate Anesthesia-Related Issues: No Anes. Related Issues
--- NOTE | 2022-11-20 15:05 | PM.EVENT ---
Event Note Date of Service: 11/20/22 Event Note: Seen on afternoon rounds Some nausea vomiting earlier Feels better now Abdomen remained soft and benign Minimal pain HERACLIO drain with serosanguineous, cholecystostomy tube with bilious output Looks well overall Encourage ambulation Pain management Time Spent With Patient Time: Total time managing care of this patient today ____ minutes.
[2022-11-20 15:33] VITALS: BP 147/67; PULSE 75; RESP 18; TEMP 36.1; O2SAT 97
[2022-11-20 19:56] VITALS: BP 169/80; PULSE 77; RESP 18; TEMP 36.1; O2SAT 96
[2022-11-20] MEDS: Zolpidem Tartrate 5 MG TABLET 10 MG PO (21:20)
[2022-11-20] MEDS: QUEtiapine Fumarate 25 MG TABLET 12.5 MG PO (21:20)
[2022-11-21] VITALS: BP 136/64; PULSE 74; RESP 16; TEMP 36.3; O2SAT 95
[2022-11-21] MEDS: Acetaminophen 1,000 MG/100 ML PIGGYBACK 400 MG IV ×2 (03:09→07:34)
[2022-11-21] MEDS: Piperacillin Sodium/Tazobactam 3.375 GM in 0.9 % Sodium Chloride 50 ML IV ×4 (03:11→21:38)
[2022-11-21] MEDS: oxyCODONE HCl Immed Release 5 MG TABLET 10 MG PO ×4 (03:11→15:48)
[2022-11-21 03:31] VITALS: BP 141/71; PULSE 76; RESP 16; TEMP 36.3; O2SAT 95
[2022-11-21] MEDS: Lactated Ringers 1,000 ML 80 ML IVCONT ×2 (06:20→20:38)
[2022-11-21] MEDS: Levothyroxine Sodium 50 MCG TABLET PO (06:21)
[2022-11-21] MEDS: Omeprazole 20 MG CAPSULE.DR PO ×2 (06:22→15:45)
[2022-11-21 07:31] VITALS: BP 146/69; PULSE 75; RESP 16; TEMP 36.1; O2SAT 94
[2022-11-21] MEDS: Folic Acid 1 MG TABLET 10 MG PO (07:37)
[2022-11-21] MEDS: mycophenolate mofetiL 250 MG CAPSULE 500 MG PO ×2 (07:38→20:38)
[2022-11-21] MEDS: predniSONE 5 MG TABLET PO (07:38)
[2022-11-21] MEDS: Metoprolol Tartrate 25 MG TABLET PO ×2 (07:38→20:38)
[2022-11-21] MEDS: 0.9 % Sodium Chloride Flush 3 ML SYRINGE IVFLUSH (07:39)
--- NOTE | 2022-11-21 08:20 | P.PNGS_ITS ---
Subjective Subjective Date of Service: 11/21/22 <Kika Kenney PA-C - Last Filed: 11/21/22 08:24> 11/21/22 <Doroteo Humphries MD - Last Filed: 11/21/22 10:22> Interval history: Feeling better this morning. Pain improving. Was OOB to recliner yesterday and ambulated halls. <Kika Kenney PA-C - Last Filed: 11/21/22 08:24> Physical Exam 2 Vital Signs: Vital Signs: Last Vital Signs Temp 97.0 F 11/21/22 07:31 Pulse 75 11/21/22 07:31 Resp 16 11/21/22 07:31 BP 146/69 H 11/21/22 07:31 Pulse Ox 94 11/21/22 07:31 O2 Del Method Room Air 11/21/22 07:31 O2 Flow Rate 3.5 11/19/22 16:48 BMI result Body Mass Index 32.0 <Kika Kenney PA-C - Last Filed: 11/21/22 08:24> Const: General: comfortable, no acute distress and alert <Kika Kenney PA-C - Last Filed: 11/21/22 08:24> Orientation/consciousness: patient oriented x3 <MATT Cristobal Last Filed: 11/21/22 08:24> Resp: Effort & Inspection: normal respiratory effort <Kika Kenney PA-C - Last Filed: 11/21/22 08:24> GI: Other: HERACLIO drain with scant serosanguineous output cholecystostomy tube with bilious output <Kika Kenney PA-C - Last Filed: 11/21/22 08:24> Inspection: No distended and Yes incision (clean) <MATT Cristobal Last Filed: 11/21/22 08:24> Palpation (GI): Soft to palpation and Tenderness to palpation present (GI) (mild incisional) <MATT Cristobal Last Filed: 11/21/22 08:24> Skin: General skin exam: no rashes or lesions noted <MATT Cristobal Last Filed: 11/21/22 08:24> Neuro: General: patient oriented x3 and moves all extremities <Kika Kenney PA-C - Last Filed: 11/21/22 08:24> Objective Data Active Medications Calcium Carbonate (Calcium Carbonate 500 Mg Tablet) 500 mg PO DAILY [facility] Last Admin: 11/21/22 07:38 Dose: 500 mg Documented By: LILIYA Fentanyl (Fentanyl Citrate/Pf 100 Mcg/2 Ml Vial) 50 mcg IVPUSH Q5M PRN; Protocol PRN Reason: Pain, Severe (Pain Scale 7-10) Folic Acid (Folic Acid 1 Mg Tablet) 10 mg PO DAILY [facility] Last Admin: 11/21/22 07:37 Dose: 1 mg Documented By: LILIYA Comments: patient only takes 1mg Hydromorphone HCl (Hydromorphone Hcl 0.5 Mg/0.5 Ml Syringe) 0.5 mg IVPUSH Q5M PRN; Protocol PRN Reason: Pain, Severe (Pain Scale 7-10) Hydromorphone HCl (Hydromorphone Hcl 0.5 Mg/0.5 Ml Syringe) 0.5 mg IVPUSH Q4H PRN; Protocol PRN Reason: Pain, Severe (Pain Scale 7-10) Lactated Ringer's (Lr) 1,000 mls @ 80 mls/hr IVCONT .[id number] [facility] Last Admin: 11/21/22 06:20 Dose: 80 mls/hr Documented By: ANASTASIIA Piperacillin Sod/Tazobactam (Sod 3.375 gm/ Sodium Chloride) 50 mls @ 100 mls/hr IV Q6H [facility] Last Infusion: 11/21/22 04:01 Dose: Infused Documented By: ANASTASIIA Acetaminophen (Ofirmev) 1,000 mg in 100 mls @ 400 mls/hr IV Q6H [facility] Stop: 11/21/22 09:44 Last Infusion: 11/21/22 07:57 Dose: Infused Documented By: LILIYA Levothyroxine Sodium (Levothyroxine Sodium 50 Mcg Tablet) 50 mcg PO DAILY@0600 [facility] Last Admin: 11/21/22 06:21 Dose: 50 mcg Documented By: ANASTASIIA Methotrexate (Methotrexate Sodium 2.5 Mg Tablet) 5 mg PO MO@0900 [facility] Methotrexate (Methotrexate Sodium 2.5 Mg Tablet) 2.5 mg PO TU@0900 [facility] Metoprolol Tartrate (Metoprolol Tartrate 25 Mg Tablet) 25 mg PO BID [facility] Last Admin: 11/21/22 07:38 Dose: 25 mg Documented By: LILIYA Mycophenolate Mofetil (Mycophenolate Mofetil 250 Mg Capsule) 500 mg PO BID [facility] Last Admin: 11/21/22 07:38 Dose: 500 mg Documented By: LILIYA Omeprazole (Omeprazole 20 Mg Capsule.Dr) 20 mg PO BID@0630,1630 [facility] Last Admin: 11/21/22 06:22 Dose: 20 mg Documented By: ANASTASIIA Ondansetron HCl (Ondansetron Hcl 4 Mg/2 Ml Vial) 4 mg IVPUSH Q8H PRN PRN Reason: nausea Last Admin: 11/20/22 11:57 Dose: 4 mg Documented By: LILIYA Ondansetron HCl (Ondansetron Hcl 4 Mg/2 Ml Vial) 4 mg IVPUSH ONCE PRN PRN Reason: Nausea and Vomiting Oxycodone HCl (Oxycodone Hcl Immed Release 5 Mg Tablet) 10 mg PO Q4H PRN PRN Reason: Pain, Moderate(Pain Scale 4-6) Last Admin: 11/21/22 06:21 Dose: 10 mg Documented By: ANASTASIIA Prednisone (Prednisone 5 Mg Tablet) 5 mg PO DAILY [facility] Last Admin: 11/21/22 07:38 Dose: 5 mg Documented By: LILIYA Quetiapine Fumarate (Quetiapine Fumarate 25 Mg Tablet) 12.5 mg PO BEDTIME [facility] Last Admin: 11/20/22 21:20 Dose: 12.5 mg Documented By: NURYS Sodium Chloride (0.9 % Sodium Chloride Flush 3 Ml Syringe) 3 ml IVFLUSH QSHIFT [facility] Last Admin: 11/21/22 07:39 Dose: 3 ml Documented By: LILIYA Zolpidem Tartrate (Zolpidem Tartrate 5 Mg Tablet) 10 mg PO BEDTIME PRN PRN Reason: Insomnia Last Admin: 11/20/22 21:20 Dose: 10 mg Documented By: NURYS <Kika Kenney PA-C - Last Filed: 11/21/22 08:24> Labs CBC & Chem 7: 11/19/22 05:20 11/19/22 05:20 <Kika Kenney PA-C - Last Filed: 11/21/22 08:24> Microbiology Microbiology Results: Microbiology 11/18/22 15:31 Blood Culture - Preliminary Blood - Venous No growth after 48 hours. 11/18/22 15:25 Blood Culture - Preliminary Blood - Venous No growth after 48 hours. 11/18/22 Unknown Urine Culture - Final Urine clean catch - Urine ramos top Corynebacterium species <Kika Kenney PA-C - Last Filed: 11/21/22 08:24> Procedures Date of Service Date of Service: 11/21/22 <Kika Kenney PA-C - Last Filed: 11/21/22 08:24> 11/21/22 <Doroteo Humphries MD - Last Filed: 11/21/22 10:22> Progress Note: A&P Assessment and plan (1) Cholecystitis: Status: Acute <Kika Kenney PA-C - Last Filed: 11/21/22 08:24> Assessment and Plan: says she feels well some pain HERACLIO drain - scanty thin serosanguinous cholecystostomy - bilious drain ambualte diet as tolerated pain mgt seen and examined independently - agree with MERT Kenney <Doroteo Humphries MD - Last Filed: 11/21/22 10:22> Assessment and Plan: 67 year old female admitted with presumed acute cholecystitis now POD #2 s/p attempted laparoscopic cholecystectomy, converted to open lysis of adhesions, repair of enterotomy in the transverse colon, placement of cholecystostomy tube drain, placement of drain in the subhepatic space. She had densely adherent omentum, duodenum and transverse colon with severe inflammatory changes surrounding the fundus of the gallbladder. Continues to do well post op and feeling improved. Abd benign with clean incision HERACLIO drain with serosanguineous output, cholecystostomy tube with bilious output. Cont IV zosyn, advance to solid diet. Encouraged pain control as needed to get OOB and ambulate today, IS use. Likely dc HERACLIO drain prior to dc home, cholecystostomy tube will remain in place. Will need home VNA. <Kika Kenney PA-C - Last Filed: 11/21/22 08:24> Time Spent With Patient Time: Total time managing care of this patient today ____ minutes. <Kika Kenney PA-C - Last Filed: 11/21/22 08:24> Quality Stroke Does the patient have a stroke diagnosis?: No <Kika Kenney PA-C - Last Filed: 11/21/22 08:24> VTE Prior VTE?: No <Kika Kenney PA-C - Last Filed: 11/21/22 08:24> VTE Risk Level:: Medical - moderate - high <Kika Kenney PA-C - Last Filed: 11/21/22 08:24> VTE Device Contraindication: N/A - Device Ordered <Kika Kenney PA-C - Last Filed: 11/21/22 08:24> VTE Drug Contraindication: Treatment Not Indicated <Kika Kenney PA-C - Last Filed: 11/21/22 08:24>
--- NOTE | 2022-11-21 09:19 | MHC.CM.PN ---
PER REVIEW OF CHART, PATIENT WILL BENEFIT FROM VNA SERVICES. REFERRAL PLACED TO [facility]. PLAN IS FOR HERACLIO DRAIN REMOVAL PRIOR TO DC
--- NOTE | 2022-11-21 10:15 | HO.PM.IMPN ---
Subjective Subjective Date of Service: 11/21/22 Interval History: pain controlled, tolerating diet, no N/V This history was taken in Setswana from the patient. Review of Systems Review of Systems: Yes all other systems are reviewed and are negative Physical Exam Vital Signs: Vital Signs: Last Vital Signs Temp 97.0 F 11/21/22 07:31 Pulse 75 11/21/22 07:31 Resp 16 11/21/22 07:31 BP 146/69 H 11/21/22 07:31 Pulse Ox 94 11/21/22 07:31 O2 Del Method Room Air 11/21/22 07:31 O2 Flow Rate 3.5 11/19/22 16:48 BMI result Body Mass Index 32.0 Gen: in no acute distress HEENT: sclera anicteric, moist mucus membranes Neck: supple Lungs: clear to auscultation bilaterally Heart: regular rate and rhythm, no murmurs Abd: dry surgical dressing, HERACLIO drain with serosanguineous drainage, cholecystostomy tube with bilious drainage Ext: no edema Skin: warm/well-perfused Neuro: alert and oriented x3, no focal findings Psych: appropriate affect Objective Data Active Medications Calcium Carbonate (Calcium Carbonate 500 Mg Tablet) 500 mg PO DAILY [facility] Last Admin: 11/21/22 07:38 Dose: 500 mg Documented By: LILIYA Fentanyl (Fentanyl Citrate/Pf 100 Mcg/2 Ml Vial) 50 mcg IVPUSH Q5M PRN; Protocol PRN Reason: Pain, Severe (Pain Scale 7-10) Folic Acid (Folic Acid 1 Mg Tablet) 1 mg PO DAILY [facility] Hydromorphone HCl (Hydromorphone Hcl 0.5 Mg/0.5 Ml Syringe) 0.5 mg IVPUSH Q5M PRN; Protocol PRN Reason: Pain, Severe (Pain Scale 7-10) Hydromorphone HCl (Hydromorphone Hcl 0.5 Mg/0.5 Ml Syringe) 0.5 mg IVPUSH Q4H PRN; Protocol PRN Reason: Pain, Severe (Pain Scale 7-10) Lactated Ringer's (Lr) 1,000 mls @ 80 mls/hr IVCONT .[id number] [facility] Last Admin: 11/21/22 06:20 Dose: 80 mls/hr Documented By: ANASTASIIA Piperacillin Sod/Tazobactam (Sod 3.375 gm/ Sodium Chloride) 50 mls @ 100 mls/hr IV Q6H [facility] Last Infusion: 11/21/22 04:01 Dose: Infused Documented By: ANASTASIIA Levothyroxine Sodium (Levothyroxine Sodium 50 Mcg Tablet) 50 mcg PO DAILY@0600 [facility] Last Admin: 11/21/22 06:21 Dose: 50 mcg Documented By: ANASTASIIA Methotrexate (Methotrexate Sodium 2.5 Mg Tablet) 5 mg PO MO@0900 [facility] Methotrexate (Methotrexate Sodium 2.5 Mg Tablet) 2.5 mg PO TU@0900 [facility] Metoprolol Tartrate (Metoprolol Tartrate 25 Mg Tablet) 25 mg PO BID [facility] Last Admin: 11/21/22 07:38 Dose: 25 mg Documented By: LILIYA Mycophenolate Mofetil (Mycophenolate Mofetil 250 Mg Capsule) 500 mg PO BID [facility] Last Admin: 11/21/22 07:38 Dose: 500 mg Documented By: LILIYA Omeprazole (Omeprazole 20 Mg Capsule.) 20 mg PO BID@0630,1630 [facility] Last Admin: 11/21/22 06:22 Dose: 20 mg Documented By: ANASTASIIA Ondansetron HCl (Ondansetron Hcl 4 Mg/2 Ml Vial) 4 mg IVPUSH Q8H PRN PRN Reason: nausea Last Admin: 11/20/22 11:57 Dose: 4 mg Documented By: LILIYA Ondansetron HCl (Ondansetron Hcl 4 Mg/2 Ml Vial) 4 mg IVPUSH ONCE PRN PRN Reason: Nausea and Vomiting Oxycodone HCl (Oxycodone Hcl Immed Release 5 Mg Tablet) 10 mg PO Q4H PRN PRN Reason: Pain, Moderate(Pain Scale 4-6) Last Admin: 11/21/22 06:21 Dose: 10 mg Documented By: ANASTASIIA Prednisone (Prednisone 5 Mg Tablet) 5 mg PO DAILY [facility] Last Admin: 11/21/22 07:38 Dose: 5 mg Documented By: LILIYA Quetiapine Fumarate (Quetiapine Fumarate 25 Mg Tablet) 12.5 mg PO BEDTIME [facility] Last Admin: 11/20/22 21:20 Dose: 12.5 mg Documented By: NURYS Sodium Chloride (0.9 % Sodium Chloride Flush 3 Ml Syringe) 3 ml IVFLUSH QSHIFT [facility] Last Admin: 11/21/22 07:39 Dose: 3 ml Documented By: LILIYA Zolpidem Tartrate (Zolpidem Tartrate 5 Mg Tablet) 10 mg PO BEDTIME PRN PRN Reason: Insomnia Last Admin: 11/20/22 21:20 Dose: 10 mg Documented By: NURYS Labs 11/19/22 05:20 11/19/22 05:20 Microbiology Microbiology Results: Microbiology 11/18/22 15:31 Blood Culture - Preliminary Blood - Venous No growth after 48 hours. 11/18/22 15:25 Blood Culture - Preliminary Blood - Venous No growth after 48 hours. 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, mycophenolate, and methotrexate; HTN; 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 for cholecystitis hospitalist consult for management of comorbid medical conditions acute cholecystitis - pip-catarino d4, BCx negative - attempted lap vj 11/19, converted to open LINDY/repair of enterotomy in transverse colon, placement of cholecystostomy tube and subhepatic HERACLIO drain due to densely adherent omentum, duodenum, and transverse colon with severe inflammatory changes surrounding the fundus of the gallbladder - tolerating diet - likely will have HERACLIO d/c'ed tomorrow then go home with cholecystostomy tube with outpt f/u pemphigus vulgaris with steroid dependence - gave stress-dose HCT 50 mg IV just prior to surgery, then 25 mg IV q8h x3 doses; resumed usual prednisone 5 m/g today - continue mycophenolate mofetil + methotrexate Hashimotos' disease - continue LT4 HTN - continue metoprolol [equivalent to home dose bisoprolol] VTE ppx - SCDs dispo - TBD In my clinical judgment, the patient requires continued inpatient hospitalization for the following reasons: postop care Time Spent With Patient Time: Total time managing care of this patient today ___35_ minutes. Quality Stroke Does the patient have a stroke diagnosis?: No VTE Prior VTE?: No VTE Risk Level:: Medical - moderate - high VTE Device Contraindication: N/A - Device Ordered VTE Drug Contraindication: Treatment Not Indicated
[2022-11-21 11:32] VITALS: BP 138/73; PULSE 63; RESP 16; TEMP 36.4; O2SAT 96
--- NOTE | 2022-11-21 12:27 | MHC.CM.PN ---
DP UPDATE: PT NOT ELIGIBLE FOR VNA THROUGH INSURANCE. SURGICAL PA AWARE. CM WILL CONTINUE TO FOLLOW FOR CHANGES TO DC PLAN/NEEDS.
[2022-11-21 15:06] VITALS: BP 133/73; PULSE 63; RESP 16; TEMP 36.4; O2SAT 95
[2022-11-21] MEDS: ondansetron HCL 4 MG/2 ML VIAL IVPUSH (15:53)
[2022-11-21 19:01] VITALS: BP 173/80; PULSE 76; RESP 18; TEMP 36.4; O2SAT 95
[2022-11-21] MEDS: HYDROmorphone HCl 0.5 MG/0.5 ML SYRINGE IVPUSH (19:20)
[2022-11-21] MEDS: Zolpidem Tartrate 5 MG TABLET 10 MG PO (20:38)
[2022-11-21] MEDS: QUEtiapine Fumarate 25 MG TABLET 12.5 MG PO (20:38)
[2022-11-22] VITALS (8 sets, daily range): BP systolic 127–162; BP diastolic 56–78; PULSE 76–89; RESP 12–20; TEMP 36.1–36.9; O2SAT 94–95
[2022-11-22] MEDS: oxyCODONE HCl Immed Release 5 MG TABLET 10 MG PO ×4 (04:57→22:37)
[2022-11-22] MEDS: Levothyroxine Sodium 50 MCG TABLET PO (04:58)
[2022-11-22] MEDS: Omeprazole 20 MG CAPSULE.DR PO ×2 (04:58→15:57)
[2022-11-22] MEDS: Piperacillin Sodium/Tazobactam 3.375 GM in 0.9 % Sodium Chloride 50 ML IV ×4 (04:59→21:59)
--- NOTE | 2022-11-22 09:04 | P.PNIM_ITS ---
Subjective Subjective Date of Service: 11/22/22 Interval History: This history was taken in Frisian from the patient. C/o postop pain No nausea, tolerating diet Review of Systems Review of Systems: Yes all other systems are reviewed and are negative Physical Exam 2 Vital Signs: Vital Signs: Last Vital Signs Temp 97.4 F 11/22/22 07:28 Pulse 80 11/22/22 07:28 Resp 20 11/22/22 07:28 BP 130/60 11/22/22 07:28 Pulse Ox 95 11/22/22 07:28 O2 Del Method Room Air 11/22/22 07:28 O2 Flow Rate 3.5 11/19/22 16:48 BMI result Body Mass Index 32.0 Gen: in no acute distress HEENT: sclera anicteric, moist mucus membranes Neck: supple Lungs: clear to auscultation bilaterally Heart: regular rate and rhythm, no murmurs Abd: dry surgical dressing, HERACLIO drain with serosanguineous drainage, cholecystostomy tube with bilious drainage Ext: no edema Skin: warm/well-perfused Neuro: alert and oriented x3, no focal findings Psych: appropriate affect Objective Data Active Medications Calcium Carbonate (Calcium Carbonate 500 Mg Tablet) 500 mg PO DAILY [facility] Last Admin: 11/21/22 07:38 Dose: 500 mg Documented By: LILIYA Fentanyl (Fentanyl Citrate/Pf 100 Mcg/2 Ml Vial) 50 mcg IVPUSH Q5M PRN; Protocol PRN Reason: Pain, Severe (Pain Scale 7-10) Folic Acid (Folic Acid 1 Mg Tablet) 1 mg PO DAILY [facility] Hydromorphone HCl (Hydromorphone Hcl 0.5 Mg/0.5 Ml Syringe) 0.5 mg IVPUSH Q5M PRN; Protocol PRN Reason: Pain, Severe (Pain Scale 7-10) Hydromorphone HCl (Hydromorphone Hcl 0.5 Mg/0.5 Ml Syringe) 0.5 mg IVPUSH Q4H PRN; Protocol PRN Reason: Pain, Severe (Pain Scale 7-10) Last Admin: 11/21/22 19:20 Dose: 0.5 mg Documented By: KENJI Lactated Ringer's (Lr) 1,000 mls @ 80 mls/hr IVCONT .[id number] [facility] Last Admin: 11/22/22 07:30 Dose: Not Given Documented By: JOHN Non-Admin Reason: IV Running Piperacillin Sod/Tazobactam (Sod 3.375 gm/ Sodium Chloride) 50 mls @ 100 mls/hr IV Q6H [facility] Last Infusion: 11/22/22 06:09 Dose: Infused Documented By: ALBERTO Levothyroxine Sodium (Levothyroxine Sodium 50 Mcg Tablet) 50 mcg PO DAILY@0600 [facility] Last Admin: 11/22/22 04:58 Dose: 50 mcg Documented By: ALBERTO Methotrexate (Methotrexate Sodium 2.5 Mg Tablet) 5 mg PO MO@0900 [facility] Methotrexate (Methotrexate Sodium 2.5 Mg Tablet) 2.5 mg PO TU@0900 [facility] Metoprolol Tartrate (Metoprolol Tartrate 25 Mg Tablet) 25 mg PO BID [facility] Last Admin: 11/21/22 20:38 Dose: 25 mg Documented By: KENJI Mycophenolate Mofetil (Mycophenolate Mofetil 250 Mg Capsule) 500 mg PO BID [facility] Last Admin: 11/21/22 20:38 Dose: 500 mg Documented By: KENJI Omeprazole (Omeprazole 20 Mg Capsule.Dr) 20 mg PO BID@0630,1630 [facility] Last Admin: 11/22/22 04:58 Dose: 20 mg Documented By: ALBERTO Ondansetron HCl (Ondansetron Hcl 4 Mg/2 Ml Vial) 4 mg IVPUSH Q8H PRN PRN Reason: nausea Last Admin: 11/21/22 15:53 Dose: 4 mg Documented By: RYLIE Ondansetron HCl (Ondansetron Hcl 4 Mg/2 Ml Vial) 4 mg IVPUSH ONCE PRN PRN Reason: Nausea and Vomiting Oxycodone HCl (Oxycodone Hcl Immed Release 5 Mg Tablet) 10 mg PO Q4H PRN PRN Reason: Pain, Moderate(Pain Scale 4-6) Last Admin: 11/22/22 04:57 Dose: 10 mg Documented By: ALBERTO Prednisone (Prednisone 5 Mg Tablet) 5 mg PO DAILY [facility] Last Admin: 11/21/22 07:38 Dose: 5 mg Documented By: LILIYA Quetiapine Fumarate (Quetiapine Fumarate 25 Mg Tablet) 12.5 mg PO BEDTIME [facility] Last Admin: 11/21/22 20:38 Dose: 12.5 mg Documented By: KENJI Sodium Chloride (0.9 % Sodium Chloride Flush 3 Ml Syringe) 3 ml IVFLUSH QSHIFT [facility] Last Admin: 11/21/22 23:50 Dose: Not Given Documented By: ALBERTO Non-Admin Reason: IV Running Zolpidem Tartrate (Zolpidem Tartrate 5 Mg Tablet) 10 mg PO BEDTIME PRN PRN Reason: Insomnia Last Admin: 11/21/22 20:38 Dose: 10 mg Documented By: KENJI Labs 11/19/22 05:20 11/19/22 05:20 Assessment and Plan (1) Cholecystitis: Status: Acute Plan d5 67yo F with 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 mg/d since 2015, mycophenolate, and methotrexate; HTN; 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 [facility] for cholecystitis hospitalist consult for management of comorbid medical conditions acute cholecystitis - pip-catarino d5, BCx negative - attempted lap vj 11/19, converted to open LINDY/repair of enterotomy in transverse colon, placement of cholecystostomy tube and subhepatic HERACLIO drain due to densely adherent omentum, duodenum, and transverse colon with severe inflammatory changes surrounding the fundus of the gallbladder - tolerating diet - likely will have HERACLIO d/c'ed today then go home with cholecystostomy tube with outpt f/u pemphigus vulgaris with steroid dependence - gave stress-dose HCT 50 mg IV just prior to surgery, then 25 mg IV q8h x3 doses; resumed usual prednisone 5 m/g yesterday - continue mycophenolate mofetil + methotrexate Hashimotos' disease - continue LT4 HTN - continue metoprolol [equivalent to home dose bisoprolol] VTE ppx - SCDs dispo - TBD In my clinical judgment, the patient requires continued inpatient hospitalization for the following reasons: postop care Time Spent With Patient Time: Total time managing care of this patient today ___35_ minutes. Quality Stroke Does the patient have a stroke diagnosis?: No VTE Prior VTE?: No VTE Risk Level:: Medical - moderate - high VTE Device Contraindication: N/A - Device Ordered VTE Drug Contraindication: Treatment Not Indicated
[2022-11-22] MEDS: mycophenolate mofetiL 250 MG CAPSULE 500 MG PO ×2 (09:22→20:08)
[2022-11-22] MEDS: Folic Acid 1 MG TABLET PO (09:23)
[2022-11-22] MEDS: predniSONE 5 MG TABLET PO (09:24)
[2022-11-22] MEDS: Metoprolol Tartrate 25 MG TABLET PO ×2 (09:24→20:08)
[2022-11-22] MEDS: 0.9 % Sodium Chloride Flush 3 ML SYRINGE IVFLUSH ×2 (09:30→15:57)
--- NOTE | 2022-11-22 09:44 | PM.PNGS ---
Subjective Subjective Date of Service: 11/22/22 Interval history: says she feels better tolerating diet although not eating a lot passing good flatus appropriate pain on incision Physical Exam Vital Signs: Vital Signs: Last Vital Signs Temp 97.4 F 11/22/22 07:28 Pulse 80 11/22/22 07:28 Resp 20 11/22/22 07:28 BP 130/60 11/22/22 07:28 Pulse Ox 95 11/22/22 07:28 O2 Del Method Room Air 11/22/22 07:28 O2 Flow Rate 3.5 11/19/22 16:48 BMI result Body Mass Index 32.0 Const: General: comfortable and no acute distress Resp: Effort & Inspection: normal respiratory effort Cardio: Rate: regular rate GI: Other: HERACLIO drain, scanty serosanguinous output; cholecystostomy with thin bilious output; incisions clean Palpation (GI): Soft to palpation and not firm Objective Data Active Medications Calcium Carbonate (Calcium Carbonate 500 Mg Tablet) 500 mg PO DAILY [facility] Last Admin: 11/22/22 09:25 Dose: 500 mg Documented By: JOHN Fentanyl (Fentanyl Citrate/Pf 100 Mcg/2 Ml Vial) 50 mcg IVPUSH Q5M PRN; Protocol PRN Reason: Pain, Severe (Pain Scale 7-10) Folic Acid (Folic Acid 1 Mg Tablet) 1 mg PO DAILY [facility] Last Admin: 11/22/22 09:23 Dose: 1 mg Documented By: JOHN Hydromorphone HCl (Hydromorphone Hcl 0.5 Mg/0.5 Ml Syringe) 0.5 mg IVPUSH Q5M PRN; Protocol PRN Reason: Pain, Severe (Pain Scale 7-10) Hydromorphone HCl (Hydromorphone Hcl 0.5 Mg/0.5 Ml Syringe) 0.5 mg IVPUSH Q4H PRN; Protocol PRN Reason: Pain, Severe (Pain Scale 7-10) Last Admin: 11/21/22 19:20 Dose: 0.5 mg Documented By: KENJI Lactated Ringer's (Lr) 1,000 mls @ 80 mls/hr IVCONT .[id number] [facility] Last Admin: 11/22/22 07:30 Dose: Not Given Documented By: JOHN Non-Admin Reason: IV Running Piperacillin Sod/Tazobactam (Sod 3.375 gm/ Sodium Chloride) 50 mls @ 100 mls/hr IV Q6H [facility] Last Admin: 11/22/22 09:31 Dose: 100 mls/hr Documented By: JOHN Levothyroxine Sodium (Levothyroxine Sodium 50 Mcg Tablet) 50 mcg PO DAILY@0600 [facility] Last Admin: 11/22/22 04:58 Dose: 50 mcg Documented By: ALBERTO Methotrexate (Methotrexate Sodium 2.5 Mg Tablet) 5 mg PO MO@0900 [facility] Methotrexate (Methotrexate Sodium 2.5 Mg Tablet) 2.5 mg PO TU@0900 [facility] Metoprolol Tartrate (Metoprolol Tartrate 25 Mg Tablet) 25 mg PO BID [facility] Last Admin: 11/22/22 09:24 Dose: 25 mg Documented By: JOHN Mycophenolate Mofetil (Mycophenolate Mofetil 250 Mg Capsule) 500 mg PO BID [facility] Last Admin: 11/22/22 09:22 Dose: 500 mg Documented By: JOHN Omeprazole (Omeprazole 20 Mg Capsule.Dr) 20 mg PO BID@0630,1630 [facility] Last Admin: 11/22/22 04:58 Dose: 20 mg Documented By: ALBERTO Ondansetron HCl (Ondansetron Hcl 4 Mg/2 Ml Vial) 4 mg IVPUSH Q8H PRN PRN Reason: nausea Last Admin: 11/21/22 15:53 Dose: 4 mg Documented By: RYLIE Ondansetron HCl (Ondansetron Hcl 4 Mg/2 Ml Vial) 4 mg IVPUSH ONCE PRN PRN Reason: Nausea and Vomiting Oxycodone HCl (Oxycodone Hcl Immed Release 5 Mg Tablet) 10 mg PO Q4H PRN PRN Reason: Pain, Moderate(Pain Scale 4-6) Last Admin: 11/22/22 09:23 Dose: 10 mg Documented By: JOHN Prednisone (Prednisone 5 Mg Tablet) 5 mg PO DAILY [facility] Last Admin: 11/22/22 09:24 Dose: 5 mg Documented By: JOHN Quetiapine Fumarate (Quetiapine Fumarate 25 Mg Tablet) 12.5 mg PO BEDTIME [facility] Last Admin: 11/21/22 20:38 Dose: 12.5 mg Documented By: KENJI Sodium Chloride (0.9 % Sodium Chloride Flush 3 Ml Syringe) 3 ml IVFLUSH QSHIFT [facility] Last Admin: 11/22/22 09:30 Dose: 3 ml Documented By: JOHN Zolpidem Tartrate (Zolpidem Tartrate 5 Mg Tablet) 10 mg PO BEDTIME PRN PRN Reason: Insomnia Last Admin: 11/21/22 20:38 Dose: 10 mg Documented By: KENJI Labs 11/19/22 05:20 11/19/22 05:20 Procedures Date of Service Date of Service: 11/22/22 Progress Note: A&P Assessment and plan (1) Cholecystitis: Status: Acute Assessment and Plan: s/p tube cholecystostomy drains in place she looks well push PO intake she does not qualify for VNA - will need to make sure she is able to care for drains at home push PO intake will review case with case worker discussed above with daughter Shauna Time Spent With Patient Time: Total time managing care of this patient today ____ minutes. Quality Stroke Does the patient have a stroke diagnosis?: No VTE Prior VTE?: No VTE Risk Level:: Medical - moderate - high VTE Device Contraindication: N/A - Device Ordered VTE Drug Contraindication: Treatment Not Indicated
[2022-11-22] MEDS: Lactated Ringers 1,000 ML 80 ML IVCONT ×2 (10:15→22:39)
[2022-11-22] MEDS: HYDROmorphone HCl 0.5 MG/0.5 ML SYRINGE IVPUSH (19:38)
[2022-11-22] MEDS: QUEtiapine Fumarate 25 MG TABLET 12.5 MG PO (20:08)
[2022-11-23] VITALS: BP 144/82; PULSE 78; RESP 18; TEMP 36.2; O2SAT 94
[2022-11-23] MEDS: Zolpidem Tartrate 5 MG TABLET 10 MG PO ×2 (00:35→20:21)
[2022-11-23] MEDS: Piperacillin Sodium/Tazobactam 3.375 GM in 0.9 % Sodium Chloride 50 ML IV ×4 (04:10→21:03)
[2022-11-23] MEDS: Levothyroxine Sodium 50 MCG TABLET PO (05:44)
[2022-11-23] MEDS: Omeprazole 20 MG CAPSULE.DR PO ×2 (05:44→15:32)
[2022-11-23 07:33] VITALS: BP 146/67; PULSE 73; RESP 18; TEMP 36.6; O2SAT 96
[2022-11-23] MEDS: Folic Acid 1 MG TABLET PO (07:44)
[2022-11-23] MEDS: Metoprolol Tartrate 25 MG TABLET PO ×2 (07:44→20:14)
[2022-11-23] MEDS: predniSONE 5 MG TABLET PO (07:44)
[2022-11-23] MEDS: mycophenolate mofetiL 250 MG CAPSULE 500 MG PO ×2 (07:45→20:13)
[2022-11-23] MEDS: oxyCODONE HCl Immed Release 5 MG TABLET 10 MG PO (09:18)
--- NOTE | 2022-11-23 09:30 | P.PNIM_ITS ---
Subjective Subjective Date of Service: 11/23/22 Interval History: This history was taken in [place] from the patient. Pain controlled Tolerating diet Has HERACLIO + cholecystostomy tube Review of Systems Review of Systems: Yes all other systems are reviewed and are negative Physical Exam 2 Vital Signs: Vital Signs: Last Vital Signs Temp 97.8 F 11/23/22 07:33 Pulse 73 11/23/22 07:33 Resp 18 11/23/22 07:33 BP 146/67 H 11/23/22 07:33 Pulse Ox 96 11/23/22 07:33 O2 Del Method Room Air 11/23/22 07:33 O2 Flow Rate 3.5 11/19/22 16:48 BMI result Body Mass Index 32.0 Gen: in no acute distress HEENT: sclera anicteric, moist mucus membranes Neck: supple Lungs: clear to auscultation bilaterally Heart: regular rate and rhythm, no murmurs Abd: dry surgical dressing, HERACLIO drain with scant serosanguineous drainage, cholecystostomy tube with bilious drainage Ext: no edema Skin: warm/well-perfused Neuro: alert and oriented x3, no focal findings Psych: appropriate affect Objective Data Active Medications Calcium Carbonate (Calcium Carbonate 500 Mg Tablet) 500 mg PO DAILY [facility] Last Admin: 11/23/22 07:45 Dose: 500 mg Documented By: GISELLA Fentanyl (Fentanyl Citrate/Pf 100 Mcg/2 Ml Vial) 50 mcg IVPUSH Q5M PRN; Protocol PRN Reason: Pain, Severe (Pain Scale 7-10) Folic Acid (Folic Acid 1 Mg Tablet) 1 mg PO DAILY [facility] Last Admin: 11/23/22 07:44 Dose: 1 mg Documented By: GISELLA Hydromorphone HCl (Hydromorphone Hcl 0.5 Mg/0.5 Ml Syringe) 0.5 mg IVPUSH Q5M PRN; Protocol PRN Reason: Pain, Severe (Pain Scale 7-10) Hydromorphone HCl (Hydromorphone Hcl 0.5 Mg/0.5 Ml Syringe) 0.5 mg IVPUSH Q4H PRN; Protocol PRN Reason: Pain, Severe (Pain Scale 7-10) Last Admin: 11/22/22 19:38 Dose: 0.5 mg Documented By: NADEEN Lactated Ringer's (Lr) 1,000 mls @ 60 mls/hr IVCONT .[id number] [facility] Last Admin: 11/22/22 22:39 Dose: 80 mls/hr Documented By: NADEEN Piperacillin Sod/Tazobactam (Sod 3.375 gm/ Sodium Chloride) 50 mls @ 100 mls/hr IV Q6H [facility] Last Admin: 11/23/22 09:05 Dose: 100 mls/hr Documented By: GISELLA Levothyroxine Sodium (Levothyroxine Sodium 50 Mcg Tablet) 50 mcg PO DAILY@0600 [facility] Last Admin: 11/23/22 05:44 Dose: 50 mcg Documented By: NADEEN Methotrexate (Methotrexate Sodium 2.5 Mg Tablet) 5 mg PO MO@0900 [facility] Methotrexate (Methotrexate Sodium 2.5 Mg Tablet) 2.5 mg PO TU@0900 [facility] Metoprolol Tartrate (Metoprolol Tartrate 25 Mg Tablet) 25 mg PO BID [facility] Last Admin: 11/23/22 07:44 Dose: 25 mg Documented By: GISELLA Mycophenolate Mofetil (Mycophenolate Mofetil 250 Mg Capsule) 500 mg PO BID [facility] Last Admin: 11/23/22 07:45 Dose: 500 mg Documented By: GISELLA Omeprazole (Omeprazole 20 Mg Capsule.) 20 mg PO BID@0630,1630 [facility] Last Admin: 11/23/22 05:44 Dose: 20 mg Documented By: NADEEN Ondansetron HCl (Ondansetron Hcl 4 Mg/2 Ml Vial) 4 mg IVPUSH Q8H PRN PRN Reason: nausea Last Admin: 11/21/22 15:53 Dose: 4 mg Documented By: RYLIE Ondansetron HCl (Ondansetron Hcl 4 Mg/2 Ml Vial) 4 mg IVPUSH ONCE PRN PRN Reason: Nausea and Vomiting Oxycodone HCl (Oxycodone Hcl Immed Release 5 Mg Tablet) 10 mg PO Q4H PRN PRN Reason: Pain, Moderate(Pain Scale 4-6) Last Admin: 11/23/22 09:18 Dose: 10 mg Documented By: GISELLA Prednisone (Prednisone 5 Mg Tablet) 5 mg PO DAILY [facility] Last Admin: 11/23/22 07:44 Dose: 5 mg Documented By: GISELLA Quetiapine Fumarate (Quetiapine Fumarate 25 Mg Tablet) 12.5 mg PO BEDTIME [facility] Last Admin: 11/22/22 20:08 Dose: 12.5 mg Documented By: NADEEN Sodium Chloride (0.9 % Sodium Chloride Flush 3 Ml Syringe) 3 ml IVFLUSH QSHIFT [facility] Last Admin: 11/23/22 07:47 Dose: Not Given Documented By: GISELLA Non-Admin Reason: IV Running Zolpidem Tartrate (Zolpidem Tartrate 5 Mg Tablet) 10 mg PO BEDTIME PRN PRN Reason: Insomnia Last Admin: 11/23/22 00:35 Dose: 10 mg Documented By: NADEEN Labs 11/19/22 05:20 11/19/22 05:20 Assessment and Plan (1) Cholecystitis: Status: Acute Plan d6 67yo F with 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 mg/d since 2015, mycophenolate, and methotrexate; HTN; 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 Surg for cholecystitis hospitalist consult for management of comorbid medical conditions acute cholecystitis - pip-catarino 11/18- - BCx negative - attempted lap vj 11/19, converted to open LINDY/repair of enterotomy in transverse colon, placement of cholecystostomy tube and subhepatic HERACLIO drain due to densely adherent omentum, duodenum, and transverse colon with severe inflammatory changes surrounding the fundus of the gallbladder - tolerating diet - eventually home with cholecystostomy tube with outpt f/u per surgical team pemphigus vulgaris with steroid dependence - gave stress-dose HCT 50 mg IV just prior to surgery, then 25 mg IV q8h x3 doses; resumed usual prednisone 5 m/g 11/21 - continue mycophenolate mofetil + methotrexate Hashimotos' disease - continue LT4 HTN - continue metoprolol [equivalent to home dose bisoprolol] VTE ppx - SCDs dispo - home when cleared by surgery, insurance does not cover VNA In my clinical judgment, the patient requires continued inpatient hospitalization for the following reasons: postop care Time Spent With Patient Time: Total time managing care of this patient today ___35_ minutes. Quality Stroke Does the patient have a stroke diagnosis?: No VTE Prior VTE?: No VTE Risk Level:: Medical - moderate - high VTE Device Contraindication: N/A - Device Ordered VTE Drug Contraindication: Treatment Not Indicated
--- NOTE | 2022-11-23 09:39 | PM.PNGS ---
Subjective Subjective Date of Service: 11/23/22 Interval history: continues to feel better tolerating diet no new complaints passing good flatus Physical Exam Vital Signs: Vital Signs: Last Vital Signs Temp 97.8 F 11/23/22 07:33 Pulse 73 11/23/22 07:33 Resp 18 11/23/22 07:33 BP 146/67 H 11/23/22 07:33 Pulse Ox 96 11/23/22 07:33 O2 Del Method Room Air 11/23/22 07:33 O2 Flow Rate 3.5 11/19/22 16:48 BMI result Body Mass Index 32.0 Const: General: comfortable and no acute distress Resp: Effort & Inspection: normal respiratory effort Cardio: Rate: regular rate GI: Other: HERACLIO - scanty serosanguinous cholecystostomy - scanty bilious output incisions dry Palpation (GI): Soft to palpation, not firm and no guarding Objective Data Active Medications Calcium Carbonate (Calcium Carbonate 500 Mg Tablet) 500 mg PO DAILY [facility] Last Admin: 11/23/22 07:45 Dose: 500 mg Documented By: GISELLA Fentanyl (Fentanyl Citrate/Pf 100 Mcg/2 Ml Vial) 50 mcg IVPUSH Q5M PRN; Protocol PRN Reason: Pain, Severe (Pain Scale 7-10) Folic Acid (Folic Acid 1 Mg Tablet) 1 mg PO DAILY [facility] Last Admin: 11/23/22 07:44 Dose: 1 mg Documented By: GISELLA Hydromorphone HCl (Hydromorphone Hcl 0.5 Mg/0.5 Ml Syringe) 0.5 mg IVPUSH Q5M PRN; Protocol PRN Reason: Pain, Severe (Pain Scale 7-10) Hydromorphone HCl (Hydromorphone Hcl 0.5 Mg/0.5 Ml Syringe) 0.5 mg IVPUSH Q4H PRN; Protocol PRN Reason: Pain, Severe (Pain Scale 7-10) Last Admin: 11/22/22 19:38 Dose: 0.5 mg Documented By: NADEEN Lactated Ringer's (Lr) 1,000 mls @ 60 mls/hr IVCONT .[id number] [facility] Last Admin: 11/22/22 22:39 Dose: 80 mls/hr Documented By: NADEEN Piperacillin Sod/Tazobactam (Sod 3.375 gm/ Sodium Chloride) 50 mls @ 100 mls/hr IV Q6H [facility] Last Infusion: 11/23/22 09:39 Dose: Infused Documented By: GISELLA Levothyroxine Sodium (Levothyroxine Sodium 50 Mcg Tablet) 50 mcg PO DAILY@0600 [facility] Last Admin: 11/23/22 05:44 Dose: 50 mcg Documented By: NADEEN Methotrexate (Methotrexate Sodium 2.5 Mg Tablet) 5 mg PO MO@0900 [facility] Methotrexate (Methotrexate Sodium 2.5 Mg Tablet) 2.5 mg PO TU@0900 [facility] Metoprolol Tartrate (Metoprolol Tartrate 25 Mg Tablet) 25 mg PO BID [facility] Last Admin: 11/23/22 07:44 Dose: 25 mg Documented By: GISELLA Mycophenolate Mofetil (Mycophenolate Mofetil 250 Mg Capsule) 500 mg PO BID [facility] Last Admin: 11/23/22 07:45 Dose: 500 mg Documented By: GISELLA Omeprazole (Omeprazole 20 Mg Capsule.) 20 mg PO BID@0630,1630 [facility] Last Admin: 11/23/22 05:44 Dose: 20 mg Documented By: NADEEN Ondansetron HCl (Ondansetron Hcl 4 Mg/2 Ml Vial) 4 mg IVPUSH Q8H PRN PRN Reason: nausea Last Admin: 11/21/22 15:53 Dose: 4 mg Documented By: RYLIE Ondansetron HCl (Ondansetron Hcl 4 Mg/2 Ml Vial) 4 mg IVPUSH ONCE PRN PRN Reason: Nausea and Vomiting Oxycodone HCl (Oxycodone Hcl Immed Release 5 Mg Tablet) 10 mg PO Q4H PRN PRN Reason: Pain, Moderate(Pain Scale 4-6) Last Admin: 11/23/22 09:18 Dose: 10 mg Documented By: GISELLA Prednisone (Prednisone 5 Mg Tablet) 5 mg PO DAILY [facility] Last Admin: 11/23/22 07:44 Dose: 5 mg Documented By: GISELLA Quetiapine Fumarate (Quetiapine Fumarate 25 Mg Tablet) 12.5 mg PO BEDTIME [facility] Last Admin: 11/22/22 20:08 Dose: 12.5 mg Documented By: NADEEN Sodium Chloride (0.9 % Sodium Chloride Flush 3 Ml Syringe) 3 ml IVFLUSH QSHIFT [facility] Last Admin: 11/23/22 07:47 Dose: Not Given Documented By: GISELLA Non-Admin Reason: IV Running Zolpidem Tartrate (Zolpidem Tartrate 5 Mg Tablet) 10 mg PO BEDTIME PRN PRN Reason: Insomnia Last Admin: 11/23/22 00:35 Dose: 10 mg Documented By: NADEEN Labs 11/19/22 05:20 11/19/22 05:20 Procedures Date of Service Date of Service: 11/23/22 Progress Note: A&P Assessment and plan (1) Cholecystitis: Status: Acute Assessment and Plan: S/P tube cholecystostomy, with attempted cholecystectomy via subcostal incision looks well good GI function drain care unable to have VNS dw daughter - they will care for her at home - plan discharge tomorrow Time Spent With Patient Time: Total time managing care of this patient today ____ minutes. Quality Stroke Does the patient have a stroke diagnosis?: No VTE Prior VTE?: No VTE Risk Level:: Medical - moderate - high VTE Device Contraindication: N/A - Device Ordered VTE Drug Contraindication: Treatment Not Indicated
[2022-11-23 11:39] VITALS: BP 140/65; PULSE 78; RESP 18; TEMP 36.4; O2SAT 95
[2022-11-23 15:31] VITALS: BP 155/70; PULSE 75; RESP 18; TEMP 36.4; O2SAT 95
[2022-11-23] MEDS: Lactated Ringers 1,000 ML 60 ML IVCONT (16:29)
[2022-11-23 19:21] VITALS: PULSE 79; RESP 16; TEMP 36.3; O2SAT 97
[2022-11-23] MEDS: QUEtiapine Fumarate 25 MG TABLET 12.5 MG PO (20:13)
[2022-11-23] MEDS: 0.9 % Sodium Chloride Flush 3 ML SYRINGE IVFLUSH (20:13)
[2022-11-23 23:54] VITALS: BP 174/82; PULSE 73; RESP 19; TEMP 36.4; O2SAT 95
[2022-11-24] MEDS: HYDROmorphone HCl 0.5 MG/0.5 ML SYRINGE IVPUSH ×2 (00:10→05:23)
[2022-11-24 03:10] VITALS: BP 184/78; PULSE 79; RESP 18; TEMP 36.3; O2SAT 95
[2022-11-24] MEDS: Piperacillin Sodium/Tazobactam 3.375 GM in 0.9 % Sodium Chloride 50 ML IV (03:13)
--- NOTE | 2022-11-24 03:28 | PC.NURSE ---
Addendum entered by Bettye Ayala RN 11/24/22 06:27: pt in room 344 was given hydralizine 5mg IV push. I checked pt BP about an hour later, PT BP was reading 194/89. Pt said that her pain level wasn't that high 08/02. I asked CAREER DEVELOPMENT DIRECTOR to recheck PT BP manually, PT BP was 168/78. PT then stated that she is experiencing more pain. Dr. Mark was notified. I asked Dr. Unger can i give pt PRN med dilaudid for pain to see if PT BP will go down. Dr. Unger said ok. Pt was given dilaudid. Pt BP is better. Addendum entered by Bettye Ayala RN 11/24/22 03:34: Dr. Unger ordered one time dose of 5mg hydralazine IV push. Original Note: pt in room 344 BP is continuing to elevate. @ 1139 140/65, 1131 155/70, 2354 174/82, 0310 184/78. Pt BP is elevated with pain. I gave PT dilaudid 0010. Dr. Unger was notified. Dr. Unger ordered hydralizine.
[2022-11-24] MEDS: hydrALAZINE HCl 20 MG/ML VIAL 5 MG IVPUSH (03:45)
[2022-11-24] MEDS: Levothyroxine Sodium 50 MCG TABLET PO (06:02)
[2022-11-24] MEDS: Omeprazole 20 MG CAPSULE.DR PO (06:02)
[2022-11-24 07:21] VITALS: BP 163/75; PULSE 73; RESP 16; TEMP 36; O2SAT 96
[2022-11-24] MEDS: mycophenolate mofetiL 250 MG CAPSULE 500 MG PO (08:25)
[2022-11-24] MEDS: Metoprolol Tartrate 25 MG TABLET PO (08:25)
[2022-11-24] MEDS: predniSONE 5 MG TABLET PO (08:25)
[2022-11-24] MEDS: Folic Acid 1 MG TABLET PO (08:25)
[2022-11-24] MEDS: 0.9 % Sodium Chloride Flush 3 ML SYRINGE IVFLUSH (08:28)
--- NOTE | 2022-11-24 09:47 | PM.PNGS ---
Subjective Subjective Date of Service: 11/24/22 <Kika Kenney PA-C - Last Filed: 11/24/22 09:49> 11/24/22 <Doroteo Humphries MD - Last Filed: 11/24/22 09:54> Interval history: Feeling overall much better. Tolerating solid diet. Pain improved. Ready to go home. Daughter and will care for tube. <Kika Kenney PA-C - Last Filed: 11/24/22 09:49> Physical Exam Vital Signs: Vital Signs: Last Vital Signs Temp 96.8 F 11/24/22 07:21 Pulse 73 11/24/22 07:21 Resp 16 11/24/22 07:21 BP 163/75 H 11/24/22 07:21 Pulse Ox 96 11/24/22 07:21 O2 Del Method Room Air 11/24/22 07:21 O2 Flow Rate 3.5 11/19/22 16:48 BMI result Body Mass Index 32.0 <Kika Kenney PA-C - Last Filed: 11/24/22 09:49> Const: Orientation/consciousness: patient oriented x3 <Kika Kenney PA-C - Last Filed: 11/24/22 09:49> Resp: Effort & Inspection: normal respiratory effort <MATT Cristobal Last Filed: 11/24/22 09:49> GI: Other: scant serosanguineous HERACLIO drainage cholecystostomy tube with bilious drainage <Kika Kenney PA-C - Last Filed: 11/24/22 09:49> Inspection: Yes incision (clean) <Kika Kenney PA-C - Last Filed: 11/24/22 09:49> Palpation (GI): Soft to palpation and Tenderness to palpation present (GI) <MATT Cristobal Last Filed: 11/24/22 09:49> Skin: General skin exam: no rashes or lesions noted <MATT Cristobal Last Filed: 11/24/22 09:49> Neuro: General: patient oriented x3 and moves all extremities <MATT Cristobal Last Filed: 11/24/22 09:49> Objective Data Active Medications Calcium Carbonate (Calcium Carbonate 500 Mg Tablet) 500 mg PO DAILY [facility] Last Admin: 11/24/22 08:25 Dose: 500 mg Documented By: RYLIE Folic Acid (Folic Acid 1 Mg Tablet) 1 mg PO DAILY [facility] Last Admin: 11/24/22 08:25 Dose: 1 mg Documented By: RYLIE Hydromorphone HCl (Hydromorphone Hcl 0.5 Mg/0.5 Ml Syringe) 0.5 mg IVPUSH Q4H PRN; Protocol PRN Reason: Pain, Severe (Pain Scale 7-10) Last Admin: 11/24/22 05:23 Dose: 0.5 mg Documented By: YANETH Piperacillin Sod/Tazobactam (Sod 3.375 gm/ Sodium Chloride) 50 mls @ 100 mls/hr IV Q6H [facility] Last Infusion: 11/24/22 03:49 Dose: Infused Documented By: YANETH Levothyroxine Sodium (Levothyroxine Sodium 50 Mcg Tablet) 50 mcg PO DAILY@0600 [facility] Last Admin: 11/24/22 06:02 Dose: 50 mcg Documented By: YANETH Methotrexate (Methotrexate Sodium 2.5 Mg Tablet) 5 mg PO MO@0900 [facility] Methotrexate (Methotrexate Sodium 2.5 Mg Tablet) 2.5 mg PO TU@0900 [facility] Metoprolol Tartrate (Metoprolol Tartrate 25 Mg Tablet) 25 mg PO BID [facility] Last Admin: 11/24/22 08:25 Dose: 25 mg Documented By: RYLIE Mycophenolate Mofetil (Mycophenolate Mofetil 250 Mg Capsule) 500 mg PO BID [facility] Last Admin: 11/24/22 08:25 Dose: 500 mg Documented By: RYLIE Omeprazole (Omeprazole 20 Mg Capsule.) 20 mg PO BID@0630,1630 [facility] Last Admin: 11/24/22 06:02 Dose: 20 mg Documented By: YANETH Ondansetron HCl (Ondansetron Hcl 4 Mg/2 Ml Vial) 4 mg IVPUSH Q8H PRN PRN Reason: nausea Last Admin: 11/21/22 15:53 Dose: 4 mg Documented By: RYLIE Ondansetron HCl (Ondansetron Hcl 4 Mg/2 Ml Vial) 4 mg IVPUSH ONCE PRN PRN Reason: Nausea and Vomiting Oxycodone HCl (Oxycodone Hcl Immed Release 5 Mg Tablet) 10 mg PO Q4H PRN PRN Reason: Pain, Moderate(Pain Scale 4-6) Last Admin: 11/23/22 09:18 Dose: 10 mg Documented By: GISELLA Prednisone (Prednisone 5 Mg Tablet) 5 mg PO DAILY [facility] Last Admin: 11/24/22 08:25 Dose: 5 mg Documented By: RYLIE Quetiapine Fumarate (Quetiapine Fumarate 25 Mg Tablet) 12.5 mg PO BEDTIME [facility] Last Admin: 11/23/22 20:13 Dose: 12.5 mg Documented By: YANETH Sodium Chloride (0.9 % Sodium Chloride Flush 3 Ml Syringe) [facility] Last Admin: 11/24/22 08:28 Dose: 3 ml Documented By: RYLIE Zolpidem Tartrate (Zolpidem Tartrate 5 Mg Tablet) 10 mg PO BEDTIME PRN PRN Reason: Insomnia Last Admin: 11/23/22 20:21 Dose: 10 mg Documented By: YANETH <Kika Kenney PA-C - Last Filed: 11/24/22 09:49> Labs CBC & Chem 7: 11/19/22 05:20 11/19/22 05:20 <Kika Kenney PA-C - Last Filed: 11/24/22 09:49> Microbiology Microbiology Results: Microbiology 11/18/22 15:31 Blood Culture - Final Blood - Venous No growth after 5 days. 11/18/22 15:25 Blood Culture - Final Blood - Venous No growth after 5 days. <Kika Kenney PA-C - Last Filed: 11/24/22 09:49> Procedures Date of Service Date of Service: 11/24/22 <Kika Kenney PA-C - Last Filed: 11/24/22 09:49> 11/24/22 <Doroteo Humphries MD - Last Filed: 11/24/22 09:54> Progress Note: A&P Assessment and plan (1) Cholecystitis: Status: Acute <Kika Kenney PA-C - Last Filed: 11/24/22 09:49> Assessment and Plan: has been doing well good oral intake has flatus, BMs minimal pain on incision HERACLIO scanty serosanguinous Cholecystostomy tube - bilious output she says she is ready to be discharged ok to DC HERACLIO drain explained care of cholecystostomy tube ffup in office seen and examined independently <Doroteo Humphries MD - Last Filed: 11/24/22 09:54> Assessment and Plan: S/P tube cholecystostomy, with attempted cholecystectomy via subcostal incision continues to do well HERACLIO drain removed cholecystostomy tube in place, bilious drainage stable for dc to home today, f/u in office dw daughter - they will care for her at home <Kika Kenney PA-C - Last Filed: 11/24/22 09:49> Time Spent With Patient Time: Total time managing care of this patient today ____ minutes. <Kika Kenney PA-C - Last Filed: 11/24/22 09:49> Quality Stroke Does the patient have a stroke diagnosis?: No <Kika Kenney PA-C - Last Filed: 11/24/22 09:49> VTE Prior VTE?: No <Kika Kenney PA-C - Last Filed: 11/24/22 09:49> VTE Risk Level:: Medical - moderate - high <Kika Kenney PA-C - Last Filed: 11/24/22 09:49> VTE Device Contraindication: N/A - Device Ordered <Kika Kenney PA-C - Last Filed: 11/24/22 09:49> VTE Drug Contraindication: Treatment Not Indicated <Kika Kenney PA-C - Last Filed: 11/24/22 09:49>
--- NOTE | 2022-11-24 10:39 | P.PNIM_ITS ---
Subjective Subjective Date of Service: 11/24/22 Interval History: Tolerating diet complaining of right upper quadrant abdominal pain with deep breathing, denies nausea, no vomiting has been ambulating to bathroom mild transient lightheadedness when 1st sit up from lying position, no dizziness no headache, no other acute issues overnight. History obtained via field inspector. Review of Systems All other system reviewed and negative. Physical Exam 2 Vital Signs: Vital Signs: Last Vital Signs Temp 96.8 F 11/24/22 07:21 Pulse 73 11/24/22 07:21 Resp 16 11/24/22 07:21 BP 163/75 H 11/24/22 07:21 Pulse Ox 96 11/24/22 07:21 O2 Del Method Room Air 11/24/22 07:21 O2 Flow Rate 3.5 11/19/22 16:48 BMI result Body Mass Index 32.0 Const: Other: Gen: in no acute distress HEENT: sclera anicteric, moist mucus membranes Neck: supple Lungs: clear to auscultation bilaterally Heart: regular rate and rhythm, no murmurs Abd: Soft, bowel sounds audible, HERACLIO drain with serosanguineous drainage, cholecystostomy tube with bilious drainage Ext: no edema Skin: warm/well-perfused Neuro: alert and oriented x3, no focal findings Psych: appropriate affect Objective Data Active Medications Calcium Carbonate (Calcium Carbonate 500 Mg Tablet) 500 mg PO DAILY [facility] Last Admin: 11/24/22 08:25 Dose: 500 mg Documented By: RYLIE Folic Acid (Folic Acid 1 Mg Tablet) 1 mg PO DAILY [facility] Last Admin: 11/24/22 08:25 Dose: 1 mg Documented By: RYLIE Hydromorphone HCl (Hydromorphone Hcl 0.5 Mg/0.5 Ml Syringe) 0.5 mg IVPUSH Q4H PRN; Protocol PRN Reason: Pain, Severe (Pain Scale 7-10) Last Admin: 11/24/22 05:23 Dose: 0.5 mg Documented By: YANETH Piperacillin Sod/Tazobactam (Sod 3.375 gm/ Sodium Chloride) 50 mls @ 100 mls/hr IV Q6H [facility] Last Infusion: 11/24/22 03:49 Dose: Infused Documented By: YANETH Levothyroxine Sodium (Levothyroxine Sodium 50 Mcg Tablet) 50 mcg PO DAILY@0600 [facility] Last Admin: 11/24/22 06:02 Dose: 50 mcg Documented By: YANETH Methotrexate (Methotrexate Sodium 2.5 Mg Tablet) 5 mg PO MO@0900 [facility] Methotrexate (Methotrexate Sodium 2.5 Mg Tablet) 2.5 mg PO TU@0900 [facility] Metoprolol Tartrate (Metoprolol Tartrate 25 Mg Tablet) 25 mg PO BID [facility] Last Admin: 11/24/22 08:25 Dose: 25 mg Documented By: RYLIE Mycophenolate Mofetil (Mycophenolate Mofetil 250 Mg Capsule) 500 mg PO BID [facility] Last Admin: 11/24/22 08:25 Dose: 500 mg Documented By: RYLIE Omeprazole (Omeprazole 20 Mg Capsule.Dr) 20 mg PO BID@0630,1630 [facility] Last Admin: 11/24/22 06:02 Dose: 20 mg Documented By: YANETH Ondansetron HCl (Ondansetron Hcl 4 Mg/2 Ml Vial) 4 mg IVPUSH Q8H PRN PRN Reason: nausea Last Admin: 11/21/22 15:53 Dose: 4 mg Documented By: RYLIE Ondansetron HCl (Ondansetron Hcl 4 Mg/2 Ml Vial) 4 mg IVPUSH ONCE PRN PRN Reason: Nausea and Vomiting Oxycodone HCl (Oxycodone Hcl Immed Release 5 Mg Tablet) 10 mg PO Q4H PRN PRN Reason: Pain, Moderate(Pain Scale 4-6) Last Admin: 11/23/22 09:18 Dose: 10 mg Documented By: GISELLA Prednisone (Prednisone 5 Mg Tablet) 5 mg PO DAILY [facility] Last Admin: 11/24/22 08:25 Dose: 5 mg Documented By: RYLIE Quetiapine Fumarate (Quetiapine Fumarate 25 Mg Tablet) 12.5 mg PO BEDTIME [facility] Last Admin: 11/23/22 20:13 Dose: 12.5 mg Documented By: YANETH Sodium Chloride (0.9 % Sodium Chloride Flush 3 Ml Syringe) 3 ml IVFLUSH QSHIFT [facility] Last Admin: 11/24/22 08:28 Dose: 3 ml Documented By: RYLIE Zolpidem Tartrate (Zolpidem Tartrate 5 Mg Tablet) 10 mg PO BEDTIME PRN PRN Reason: Insomnia Last Admin: 11/23/22 20:21 Dose: 10 mg Documented By: YANETH Labs 11/19/22 05:20 11/19/22 05:20 Microbiology Microbiology Results: Microbiology 11/18/22 15:31 Blood Culture - Final Blood - Venous No growth after 5 days. 11/18/22 15:25 Blood Culture - Final Blood - Venous No growth after 5 days. 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, mycophenolate, and methotrexate; HTN; 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 Surg for cholecystitis hospitalist consult for management of comorbid medical conditions acute cholecystitis - on IV pip-catarino 11/18-duration as per surgery - BCx negative - attempted lap vj 11/19, converted to open LINDY/repair of enterotomy in transverse colon, placement of cholecystostomy tube and subhepatic HERACLIO drain due to densely adherent omentum, duodenum, and transverse colon with severe inflammatory changes surrounding the fundus of the gallbladder - tolerating diet, will DC IV fluid and DC IV Dilaudid pain well controlled oxycodone - eventually home with cholecystostomy tube with outpt f/u per surgical team pemphigus vulgaris with steroid dependence - gave stress-dose HCT 50 mg IV just prior to surgery, then 25 mg IV q8h x3 doses; resumed usual prednisone 5 m/g 11/21 - continue mycophenolate mofetil + methotrexate Hashimotos' disease - continue LT4 HTN - continue metoprolol [equivalent to home dose bisoprolol], few high blood pressure readings patient asymptomatic follow BP VTE ppx - SCDs dispo - home when cleared by surgery, insurance does not cover VNA In my clinical judgment, the patient requires continued inpatient hospitalization for the following reasons: postop care Time Spent With Patient Time: Total time managing care of this patient today ____ minutes. Quality Stroke Does the patient have a stroke diagnosis?: No VTE Prior VTE?: No VTE Risk Level:: Medical - moderate - high VTE Device Contraindication: N/A - Device Ordered VTE Drug Contraindication: Treatment Not Indicated
--- NOTE | 2022-11-24 11:25 | MHC.CM.PN ---
pt dcd home no seevices
[2022-11-24 12:00] VITALS: BP 179/86; PULSE 78; RESP 18; TEMP 36.2; O2SAT 97
[2022-11-24 16:00] VITALS: BP 150/80
--- NOTE | 2022-11-25 10:53 | P.DS_ITS ---
DS: Providers Provider Date of Service: 11/24/22 Date of admission: 11/18/22 15:22 Primary care physician: Nic Lyn MD Attending physician on admission: Doroteo Humphries Consults: 11/18/22 15:28 Consult to Hospitalist Routine Comment: Consulting Provider: Hospitalist Reason For Exam: pemphigus, thyroid ds, on immunosuppresant Attending physician on discharge: Doroteo Humphries DS: Diagnosis Discharge Diagnosis (1) Cholecystitis: Status: Resolved DS: Summary Hospital Course Hospital Course: BRIEF HPI: Anika Johnson is a 67 year old female with a long history of with a long history of pemphigus vulgaris and thyroid disease here in the ER because of abdominal pain. She says that she has had this for about 3 weeks now. She says that this episode it. She describes he says on the right side of her abdomen. About a month ago, she came to the ER because of pain. She had a CAT scan at that time showing constipation without any other abdominal findings. She says that her abdominal pain had resolved around that time and she was okay for about a week. She then started to have abdominal pain again, similar to the 1 when she had her ER visit. She says she has had this for 3 weeks now. She says that her episode of pain a month ago was much worse than what she has been having. However, she says that her primary care physician had told her that it may be best for her to go to the ER. She has good oral intake. She denies nausea or vomiting. She denies diarrhea. She denies weight loss. She has been on oral prednisone for most of her life because of pemphigus vulgaris. She is an ex smoker. She had an ultrasound which showed a partially distended gallbladder with sludge versus debris with mild gallbladder dilatation and wall thickening. Her LFTs are normal. She has some mild elevation of her WBC but she is on oral steroids. HOSPITAL COURSE: She was admitted to the surgical service for further treatment of the acute cholecystitis. She was started on IV abx, IVF with plans for laparoscopic cholecystectomy possible open. Hospitalist consult was obtained for management of her medical comorbidities. On 11/19/22, an attempted laparoscopic cholecystectomy, converted to open lysis of adhesions, repair of enterotomy in the transverse colon, placement of cholecystostomy tube drain, placement of drain in the subhepatic space was performed by Dr. Humphries without immediate complications. She was found to have acute cholecystitis, with densely adherent omentum, duodenum and adverse colon, severe inflammatory changes surrounding the fundus of the gallbladder with note of enterotomy on the transverse colon. She had an uncomplicated recovery course. On POD #1, she was doing overall well with good incisional pain control. She was advanced to a solid diet. She was ambulated and her activity gradually increased. She remained inpatient for pain control for 4 days and drain management. Her pain improved and was comfortable on PO analgesics. She was started on a stool softener. Her HERACLIO had scant serosanguineous drainage and was removed. VNA was not covered by her insurance but her daughter and felt comfortable at home with drain care. She was discharged on 11/24/22 in stable condition. She was discharged on a course of PO Augmentin. She is to follow up in the office in 1 week. Status at Discharge Functional status at discharge: independent ambulation Overall status at discharge: patient is progressing back to baseline Time Spent with Patient Time attestation: Total time managing care of this patient today ____ minutes. Discharge coordination time: Less than 30 minutes Quality: Safe Use of Opioids Does Pt have an Active Cancer Diagnosis on the Problem List?: No Quality: Stroke Does the patient have a stroke diagnosis?: No Physical Exam Vital Signs: Vital Signs: Last Vital Signs Temp 97.2 F 11/24/22 12:00 Pulse 78 11/24/22 12:00 Resp 18 11/24/22 12:00 BP 150/80 H 11/24/22 16:00 Pulse Ox 97 11/24/22 12:00 O2 Del Method Room Air 11/24/22 12:00 O2 Flow Rate 3.5 11/19/22 16:48 BMI result Body Mass Index 32.0 Const: General: comfortable, no acute distress and alert Orientation/consciousness: patient oriented x3 Resp: Effort & Inspection: normal respiratory effort GI: Other: cholecystostomy tube with bilious output Inspection: No distended and Yes incision (clean) Palpation (GI): Soft to palpation, Tenderness to palpation present (GI) (mild incisional), no guarding and not rigid Skin: General skin exam: no rashes or lesions noted Neuro: General: patient oriented x3 and moves all extremities DS: Data Data Completed and Pending Completed studies during hospitalization [Text1]: Procedures Drainage of Left Foot Skin, External Approach (03/24/22) Insertion of Infusion Device into Superior Vena Cava, Percutaneous Approach (03/24/22) Ultrasonography of Superior Vena Cava, Guidance (03/24/22) Discharge Plan Discharge Anticipated Discharge Date/Time: 11/23/22 10:12 Patient Disposition: Home, Self-Care Discharge Diagnosis: acute cholecystitis Referrals: Doroteo Humphries MD [Physician] - 1 Week Name,MD Nic [Primary Care Provider] - 1 Week Discharge Medications: New docusate sodium [Colace] 100 mg capsule 100 mg PO BID Qty: 30 0RF oxycodone 5 mg tablet 5 mg PO Q4H PRN (Reason: pain (scale score 7-10)) Qty: 26 0RF Rx Instructions: Partial Fill upon patient request. amoxicillin-pot clavulanate 875-125 mg tablet 1 tab PO BID Qty: 10 0RF Continued quetiapine 25 mg Tablet 12.5 mg PO BEDTIME prednisone 5 mg Tablet 5 mg PO DAILY mycophenolate mofetil 500 mg Tablet 500 mg PO BID Hold Instructions: Resume on 04/02/22. levothyroxine [Euthyrox] 50 mcg Tablet 50 mcg PO DAILY folic acid 1 mg Tablet 1 mg PO DAILY methotrexate sodium 2.5 mg Tablet 5 mg PO MO@0900 Hold Instructions: Resume on 04/02/22. methotrexate sodium 2.5 mg Tablet 2.5 mg PO TU@0900 Hold Instructions: Resume on 04/02/22. bisoprolol fumarate 10 mg tablet 5 mg PO QAM calcium carbonate 500 mg calcium (1,250 mg) Tablet 500 mg PO DAILY zolpidem [Ambien] 10 mg Tablet 10 mg PO BEDTIME PRN (Reason: Insomnia) Discharge Orders: Discharge Order (Routine); Ordered 11/24/22 Ordered By: Kika Kenney Diet: Advance to usual diet Activity on Discharge: No heavy lifting Stand Alone Forms: Patient Portal Discharge page Activity Restrictions/Additional Instructions: If the incision area is tender, you may apply an ice pack for short intervals (No more than 20 minutes on, followed by at least 20 minutes off). Do not apply heat. Do not use creams, lotions, or topical antibiotics. These can cause infection or allergic reaction. Cholecystostomy drain care: to suction, empty BID and as needed. Ok to shower. You have chang closing your incision and these will be removed approximately 10-14 days after surgery. NO HEAVY LIFTING (>10lbs) or strenuous activity. Follow up in office with Dr. Humphries in 1 week. ([phone]) Call Your Doctor If: -Your temperature exceeds 101.5? F -You experience excessive pain or swelling -You have an unexpected reaction to medication -You have excessive bleeding -You experience continued vomiting/nausea -Your incision begins to separate -Your incision shows signs of infection such as increased redness, swelli ng, excessive pain, drainage (light blood or clear fluid is normal) or heat Care Plan Goals: Return to baseline health and resume normal activities following recovery period. Eventual cholecystostomy drain removal. Health Concerns: had recent surgery with drains in place for cholecystitis Plan of Treatment: drain care Assessment: doing very well Discharge Date/Time: 11/24/22 17:24
== END 2022-11-24 17:24 | disposition home or self-care (01) | DRG 261 ==
LOC: HO.ED 14:53 → HO.EDOVER 15:29 → HO.S3 17:37
PROVIDERS: Admitting Provider Surgery; Emergency Provider Emergency Medicine; PCP Internal Medicine Geriatric Medicine; Visit Provider Surgery
PROC: 0FT44ZZ Resection of Gallbladder, Percutaneous Endoscopic Approach (ICD-10-PCS; CPT 47562; principal; 2022-11-19 13:30)
DX: K81.0 Acute cholecystitis (principal); K63.1 Perforation of intestine (nontraumatic); L10.0 Pemphigus vulgaris; K82.8 Other specified diseases of gallbladder; E06.3 Autoimmune thyroiditis; I73.9 Peripheral vascular disease, unspecified; Z79.52 Long term (current) use of systemic steroids; Z79.631 Long term (current) use of antimetabolite agent; Z79.890 Hormone replacement therapy; Z79.620 Long term (current) use of immunosuppressive biologic; Z79.899 Other long term (current) drug therapy
CPT/HCPCS: 36415; 74177; 80053; 81001; 83605; 83690; 85025; 85027; 86850; 86900; 86901; 87040; 87086; 99284; J0131; J1170; J2270; J2405; J2543; J2765; J2795; J3010; Q9967

== ENCOUNTER → 2022-11-18 15:22 | Outpatient (BNV) | payer MEDICAID, SELFPAY | PROVIDERS: Admitting Provider Surgery; Emergency Provider Emergency Medicine; PCP Internal Medicine Geriatric Medicine; Visit Provider Physician Assistant | DX: K81.9 Cholecystitis, unspecified (principal) | CPT/HCPCS: 99222; 99232 ==

== ENCOUNTER → 2022-11-18 15:22 | Outpatient (BNV) | payer MEDICAID, SELFPAY | PROVIDERS: Admitting Provider Surgery; Emergency Provider Emergency Medicine; PCP Internal Medicine Geriatric Medicine; Visit Provider Surgery | DX: K81.9 Cholecystitis, unspecified (principal) | CPT/HCPCS: 47600; 99024; 99222; 99499 ==

== ENCOUNTER 2022-12-03 10:30 | Outpatient (AMB) | payer MEDICAID, OTHER, SELFPAY ==
--- NOTE | 2022-12-03 10:32 | MHC.OFFVIS ---
Intake Vital Signs 12/03/22 10:38 Weight 153 lb BP 160/71 H Blood Pressure Location Rt brachial Position Sitting Pulse 62 Intake Visit Reasons: open lysis of adhesions, cholecystectomy Intake Note: This patient presents for a post-op assessment status post inpatient attempted laparoscopic cholecystectomy converted to open lysis of adhesions. Patient c/o; open cholecystectomy 11/19/22, reports completed course of abx, reports no issues or concerns at this time pertaining to surgery. Manufacturing Lab Technician Required: Yes Manufacturing Lab Technician Language: Television Maintenance Worker Name: Nelda Information Interpreted: non-clinical & clinical Accompanied by: Other Relationship Allergies No Known Allergies Allergy (Verified 12/03/22 10:38) HPI open lysis of adhesions, cholecystectomy HPI Details 67-year-old female here for a postop visit. She had undergone an attempted cholecystectomy last 11/19/2022 while admitted for cholecystitis. At that time however, findings were suggestive of acute on chronic cholecystitis and there was note of significant adhesions do with the duodenum as well as the transverse colon stuck to the gallbladder. We had to do a lot of lysis of adhesions. We had to repair an enterotomy on the transverse colon. In view of the dense adhesions, cholecystectomy was aborted and we proceeded to place a cholecystostomy tube drain. She has been doing well postoperatively at home. She has good oral intake and says she says she feels well. She denies significant pain and has not been taking pain medications. She says that there has been has output from her cholecystostomy tube [facility] Medical History Arthritis Abdominal pain PAD (peripheral artery disease) Jeff's thyroiditis Pemphigus vulgaris Surgical History H/O: hysterectomy Family History Mother Diabetes Social History Household Members: Spouse Housing: Apartment Do you presently have visiting nurse or other home services: No Alcohol intake: never Patient Tobacco Use Status: Former Tobacco user e-Cigarette/Vaping Use: Never Used Second Hand Smoke Exposure: No service: No Current occupational status: retired Review of Systems Const Denies chills and Denies fever(s) Card Denies chest pain, Denies dyspnea and Denies dyspnea on exertion Resp Denies cough, Denies dyspnea and Denies dyspnea on exertion GI Denies hematochezia and Denies change in bowel habits Denies hematuria Musc Denies back pain and Denies limited range of motion Neuro Denies focal weakness and Denies convulsions Psych Denies depression and Denies mood swings Physical Exam Vital Signs: Last Vital Signs Pulse 62 12/03/22 10:38 BP 160/71 H 12/03/22 10:38 Const General: comfortable and no acute distress Eyes Other: Nonicteric Resp Effort & Inspection: normal respiratory effort Cardio Rate: regular rate GI Other: Soft, nontender, subcostal incision well healed, cholecystostomy tube drain in place, scanty bilious output, incision on umbilicus is also well-healed Assessment & Plan Assessment & Plan (1) Cholecystitis: Code(s): K81.9 - Cholecystitis, unspecified Plan: Status post attempted cholecystectomy, with placement of a cholecystostomy tube drain. Her subcostal incision and umbilical incisions all well healed. I removed all her skin chang She continues to have scanty bilious drainage from her cholecystostomy tube and this suggest that the cystic duct is patent. I will see her again next week and decide on removing her cholecystostomy tube or doing a cholangiogram via this tube. Overall, she feels ?great? and looks well as well. Coding Level of Care Code Global (31646) Diagnoses Cholecystitis K81.9
[2022-12-03 10:38] VITALS: BP 160/71; PULSE 62
== END 2022-12-03 10:55 | disposition home or self-care (01) ==
PROVIDERS: PCP Internal Medicine Geriatric Medicine; Visit Provider Surgery
DX: K81.9 Cholecystitis, unspecified (principal)
CPT/HCPCS: 99024

== ENCOUNTER → 2022-12-03 10:30 | Outpatient (BNVA) | payer MEDICAID, OTHER, SELFPAY | PROVIDERS: PCP Internal Medicine Geriatric Medicine; Visit Provider Surgery ==

== ENCOUNTER 2022-12-11 09:38 | Outpatient (AMB) | payer SELFPAY ==
--- NOTE | 2022-12-11 09:41 | A.OFFVIS_ITS ---
Intake Vital Signs 12/11/22 09:57 Weight 155 lb BP 128/61 Blood Pressure Location Rt brachial Position Sitting Pulse 67 Intake Visit Reasons: 1 wk follow-up open cholecystectomy Intake Note: This patient presents for a one week follow-up assessment status post open cholecystectomy. Patient c/o; reports no changes. Mason Apprentice Required: Yes Mason Apprentice Language: Adjustment Supervisor Name: Nelda Information Interpreted: non-clinical & clinical Accompanied by: Spouse Allergies No Known Allergies Allergy (Verified 12/11/22 10:07) HPI 1 wk follow-up open cholecystectomy HPI Details She is here for follow-up after attempted cholecystectomy. I had placed a tube cholecystectomy using a T-tube at that time as the gallbladder was wrapped by intimately adherent transverse colon and duodenum. I decided to proceed with cholecystectomy then because of the risks of more injury in view of the dense adhesions around the gallbladder. She continues to do well. She denies any significant complaints. She has good oral intake. [facility] Medical History (Updated 12/11/22 @ 10:11 by Doroteo Humphries MD) Gallstones Arthritis Abdominal pain PAD (peripheral artery disease) Jeff's thyroiditis Pemphigus vulgaris Surgical History H/O: hysterectomy Family History Mother Diabetes Social History Household Members: Spouse Housing: Apartment Do you presently have visiting nurse or other home services: No Alcohol intake: never Patient Tobacco Use Status: Former Tobacco user e-Cigarette/Vaping Use: Never Used Second Hand Smoke Exposure: No service: No Current occupational status: retired Review of Systems Const Denies chills and Denies fever(s) Card Denies chest pain, Denies dyspnea and Denies dyspnea on exertion Resp Denies cough, Denies dyspnea and Denies dyspnea on exertion GI Denies hematochezia and Denies change in bowel habits Denies hematuria Musc Denies back pain and Denies limited range of motion Neuro Denies focal weakness and Denies convulsions Psych Denies depression and Denies mood swings Physical Exam Vital Signs: Last Vital Signs Pulse 67 12/11/22 09:57 BP 128/61 12/11/22 09:57 Const Other: Looks well General: comfortable and no acute distress Resp Effort & Inspection: normal respiratory effort GI Other: Tube cholecystostomy in place, with bilious output right upper quadrant incision is well healed Palpation (GI): Soft to palpation, not firm and nontender Assessment & Plan Assessment & Plan (1) Gallstones: Code(s): K80.20 - Calculus of gallbladder without cholecystitis without obstruction Plan: Status post attempted cholecystectomy. She has a tube cholecystostomy in place to her an able to free up the gallbladder from the duodenum as well as the transverse colon safely I tried to remove the tube cholecystostomy at this time but there was note of significant resistance so I did not persist. I will therefore a CT scan to reimage I also explained to them that we may have to refer her to a hepatobiliary surgeon to proceed with cholecystectomy. She is doing very well overall. Coding Level of Care Code Global (88759) Diagnoses Gallstones K80.20
[2022-12-11 09:57] VITALS: BP 128/61; PULSE 67
== END 2022-12-11 10:11 | disposition home or self-care (01) ==
PROVIDERS: PCP Internal Medicine Geriatric Medicine; Visit Provider Surgery
DX: K80.20 Calculus of gallbladder without cholecystitis without obstruction (principal)
CPT/HCPCS: 99024

== ENCOUNTER → 2022-12-11 09:38 | Outpatient (BNVA) | payer MEDICAID, OTHER, SELFPAY | PROVIDERS: PCP Internal Medicine Geriatric Medicine; Visit Provider Surgery ==

== ENCOUNTER 2022-12-16 08:57 | Outpatient (REF) | payer OTHER, SELFPAY ==
[2022-12-16 09:55] LABS: Blood Urea Nitrogen 16 mg/dL (9-16); Estimated Glomerular Filt Rate > 60
== END 2022-12-16 08:58 | disposition home or self-care (01) ==
LOC: HO.LAB 08:57
PROVIDERS: PCP Internal Medicine Geriatric Medicine; Visit Provider Surgery
DX: K80.20 Calculus of gallbladder without cholecystitis without obstruction (principal)
CPT/HCPCS: 36415; 82565; 84520

== ENCOUNTER 2022-12-18 10:51 | Outpatient (REF) | payer OTHER, SELFPAY ==
--- NOTE | ~2022-12-18 | CT_ITS ---
EXAMINATION: CT ABDOMEN AND PELVIS WITH CONTRAST CLINICAL INFORMATION: Calculi of gallbladder without cholecystitis. Cholecystostomy tube is in place COMPARISON: CT abdomen pelvis 11/18/2022 TECHNIQUE: Multidetector volumetric images were obtained from the superior aspect of the liver through the pubic symphysis following administration 85 mL of Omnipaque 350 intravenous contrast. Sagittal and coronal reformatted images were obtained on the technologist's workstation. Oral contrast: No This CT examination was performed using dose optimization techniques as appropriate, variously including the following: *Automated exposure control *Adjustment of mA and/or kV according to patient size (this includes techniques or standardized protocols for targeted exams where dose is matched to indication/reason for exam; i.e. extremities or head) *Use of iterative reconstruction technique DLP: 388 mGy-cm FINDINGS: LUNG BASES: Mild basilar atelectasis. Heart size within normal limits. Coronary artery calcium is present. LIVER, GALLBLADDER, AND BILIARY TREE: The liver is normal in size, shape, and attenuation. No focal hepatic lesion or biliary ductal dilatation is present. Cholecystostomy tube is present in the gallbladder although this does not appear as radiopaque as usual. It is difficult to ascertain if there is a formed pigtail within the gallbladder lumen. The catheter was not present at the time of the 11/18/2022 CT scan. The gallbladder is decompressed and contracted compared to the prior study. Gallstones are seen at the base of the gallbladder. Some mild inflammatory changes seen surrounding the gallbladder similar to prior. PANCREAS: Unremarkable. SPLEEN: Unremarkable. ADRENAL GLANDS: Unremarkable. KIDNEYS AND URETERS: The kidneys are normal in size, shape, and attenuation. No hydronephrosis, hydroureter, or calculi seen. Tiny 4 mm hypodensity in the left kidney is unchanged consistent with a benign Bosniak class one cyst which needs no additional imaging or follow-up. No perinephric stranding. BLADDER: Unremarkable. GASTROINTESTINAL TRACT: The small and large bowel are unremarkable aside from a few scattered colonic diverticula without diverticulitis. The appendix is unremarkable. ABDOMINAL WALL: No significant hernia is appreciated. Cholecystostomy tube enters through the rectus muscles in the right upper quadrant LYMPH NODES: No retroperitoneal lymphadenopathy. VASCULAR: Calcific plaque present in the aorta and iliac vessels without aneurysm PELVIC VISCERA: Uterus is not seen. An abnormal pelvic masses not present. No free intraperitoneal fluid. OSSEOUS STRUCTURES: Unremarkable. CT/CT abdomen pelvis w IV con IMPRESSION: 1. Cholecystostomy tube is present in the gallbladder although this does not appear as radiopaque as usual. It is difficult to ascertain if there is a formed pigtail within the gallbladder lumen. The catheter was not present at the time of the 11/18/2022 CT scan. The gallbladder is decompressed and contracted compared to the prior study. Gallstones are seen at the base of the gallbladder. Some mild inflammatory changes seen surrounding the gallbladder similar to prior. 2. Other incidental findings as described above. Fleischner guidelines were followed.
[2022-12-18] MEDS: iohexoL 350 MG/ML 100 ML INFUS..BTL IV (11:41)
== END 2022-12-18 10:52 | disposition home or self-care (01) ==
LOC: HO.CT 10:51
PROVIDERS: PCP Internal Medicine Geriatric Medicine; Visit Provider Surgery
DX: Z43.4 Encounter for attention to other artificial openings of digestive tract (principal); K80.20 Calculus of gallbladder without cholecystitis without obstruction
CPT/HCPCS: 74177; 99211; Q9967

== ENCOUNTER 2022-12-25 10:50 | Outpatient (AMB) | payer MEDICAID, SELFPAY ==
--- NOTE | 2022-12-25 10:58 | MHC.OFFVIS ---
Intake Vital Signs 12/25/22 11:09 Height 4 ft 11 in Weight 152 lb 6 oz BMI 30.8 BP 150/77 H Blood Pressure Location Lt brachial Position Sitting Pulse 69 Intake Visit Reasons: Ct-Scan follow-up Intake Note: Patient is seen in office for CT scan results following open cholecystectomy. Patient c/o: here for results, hoping her drain gets removed today, admits to discharge pus , redness, pain Welding Manager Required: No Accompanied by: Self / Same As Patient Allergies No Known Allergies Allergy (Verified 12/25/22 11:10) Medication List - Last Reconciled 12/25/22 by Doroteo Humphries MD bisoprolol fumarate 5 mg PO QAM calcium carbonate 500 mg PO DAILY docusate sodium (Colace) 100 mg PO BID folic acid 1 mg PO DAILY levothyroxine (Euthyrox) 50 mcg PO DAILY methotrexate sodium 5 mg PO MO@0900 methotrexate sodium 2.5 mg PO TU@0900 mycophenolate mofetil 500 mg PO BID oxycodone 5 mg PO Q4H PRN prednisone 5 mg PO DAILY quetiapine 12.5 mg PO BEDTIME zolpidem (Ambien) 10 mg PO BEDTIME PRN HPI Ct-Scan follow-up HPI Details 67-year-old female here for a postop visit. She had undergone an attempted cholecystectomy last 11/19/2022 while admitted for cholecystitis. At that time however, findings were suggestive of acute on chronic cholecystitis and there was note of significant adhesions with the duodenum as well as the transverse colon intimately stuck to the gallbladder. We had to do a lot of lysis of adhesions. We had to repair an enterotomy on the transverse colon. In view of the dense adhesions, cholecystectomy was aborted and we proceeded to place a cholecystostomy tube drain. She continues to do well at home. She has good oral intake although she does state that her appetite is not back to normal yet. She denies any significant pain. I had sent her for a CT scan last week to reimage the gallbladder. She denies any new complaints otherwise. FORMERLY [facility] Medical History Gallstones Arthritis Abdominal pain PAD (peripheral artery disease) Jeff's thyroiditis Pemphigus vulgaris Surgical History H/O: hysterectomy Family History Mother Diabetes Social History Household Members: Spouse Housing: Apartment Do you presently have visiting nurse or other home services: No Alcohol intake: never Patient Tobacco Use Status: Former Tobacco user e-Cigarette/Vaping Use: Never Used Second Hand Smoke Exposure: No service: No Current occupational status: retired Review of Systems Const Denies chills and Denies fever(s) Card Denies chest pain, Denies dyspnea and Denies dyspnea on exertion Resp Denies cough, Denies dyspnea and Denies dyspnea on exertion GI Denies hematochezia and Denies change in bowel habits Denies hematuria Musc Denies back pain and Denies limited range of motion Neuro Denies focal weakness and Denies convulsions Psych Denies depression and Denies mood swings Physical Exam Vital Signs: Last Vital Signs Pulse 69 12/25/22 11:09 BP 150/77 H 12/25/22 11:09 BMI result Body Mass Index 30.8 Const General: comfortable and no acute distress Eyes Other: Nonicteric Resp Effort & Inspection: normal respiratory effort GI Other: Subcostal incision on the right is well healed, cholecystostomy drain in place with bilious output Palpation (GI): Soft to palpation, not firm and nontender Assessment & Plan Assessment & Plan (1) Gallstones: Code(s): K80.20 - Calculus of gallbladder without cholecystitis without obstruction Plan: Status post attempted cholecystectomy, with placement of cholecystostomy tube drain. She is doing well. CT scan shows decreased inflammatory changes in the gallbladder. This is also contracted. There was note of gallstones. The drain is in place. I explained to her that I will refer her to a tertiary care center because of the anticipated difficulty with removal of her gallbladder in view of the significant adhesions. Her daughter Shauna prefers her to be referred to [facility], [place]. I will make these arrangements She looks well otherwise. She has good GI functions. We will keep the drain in place. Coding Level of Care Code Global (37064) Diagnoses Gallstones K80.20
[2022-12-25 11:09] VITALS: BP 150/77; PULSE 69; BMI 30.8
== END 2022-12-25 11:42 | disposition home or self-care (01) ==
PROVIDERS: PCP Internal Medicine Geriatric Medicine; Visit Provider Surgery
DX: K80.20 Calculus of gallbladder without cholecystitis without obstruction (principal)
CPT/HCPCS: 99024

== ENCOUNTER → 2022-12-25 10:50 | Outpatient (BNVA) | payer MEDICAID, SELFPAY | PROVIDERS: PCP Internal Medicine Geriatric Medicine; Visit Provider Surgery ==

== ENCOUNTER 2023-01-31 10:47 | Emergency (ER) | payer OTHER, SELFPAY ==
--- NOTE | ~2023-01-31 | CT_ITS ---
EXAMINATION: CT ABDOMEN AND PELVIS WITH CONTRAST CLINICAL INFORMATION: Right upper quadrant pain with history of cholecystostomy tube. COMPARISON: CT abdomen and pelvis 12/18/2022. TECHNIQUE: Multidetector volumetric images were obtained from the superior aspect of the liver through the pubic symphysis following administration 85 mL of Omnipaque 350 intravenous contrast. Sagittal and coronal reformatted images were obtained on the technologist's workstation. Oral contrast: No This CT examination was performed using dose optimization techniques as appropriate, variously including the following: *Automated exposure control *Adjustment of mA and/or kV according to patient size (this includes techniques or standardized protocols for targeted exams where dose is matched to indication/reason for exam; i.e. extremities or head) *Use of iterative reconstruction technique DLP: 512 mGy-cm FINDINGS: LUNG BASES: The visualized lung bases are unremarkable. LIVER, GALLBLADDER, AND BILIARY TREE: The liver is normal in size, shape, and attenuation. No focal hepatic lesion or biliary ductal dilatation is present. Tiny cholelithiasis in the gallbladder fundus. Cholecystostomy tract can be traced to the skin surface. There is new induration without fluid collection involving the right upper quadrant abdominal wall. There is mild inflammatory stranding around the gallbladder similar to the prior study. PANCREAS: No discrete mass. No ductal dilatation. No evidence of pancreatitis. SPLEEN: Unremarkable. ADRENAL GLANDS: No adrenal mass. KIDNEYS AND URETERS: The kidneys are normal in size, shape, and attenuation. No hydronephrosis, hydroureter, or calculi seen. No perinephric stranding. BLADDER: Unremarkable. GASTROINTESTINAL TRACT: The small and large bowel are normal in caliber. The appendix appears normal. ABDOMINAL WALL: Inflammatory changes in the right upper quadrant abdominal wall as above. No significant hernia seen. LYMPH NODES: No adenopathy. VASCULAR: Mild aortoiliac atherosclerosis. No aneurysm. PELVIC VISCERA: Unremarkable. OSSEOUS STRUCTURES: Degenerative changes in the spine. CT/CT abdomen pelvis w IV con IMPRESSION: New induration of the right upper quadrant abdominal wall along the cholecystostomy tract without drainable fluid collection. This is consistent with soft tissue infection. Cholelithiasis and mild inflammation of the gallbladder fundus similar to prior study. Findings may be chronic or recurrent. Fleischner guidelines were followed.
[2023-01-31 11:53] VITALS: BP 141/62; PULSE 75; RESP 18; TEMP 35.8; O2SAT 98; BMI 28.8
--- NOTE | 2023-01-31 11:56 | ED.ABDPAIN ---
HPI - Abdominal Pain General Chief Complaint: General Medical Stated Complaint: abd pain surgery 11 18 drain fallen Time Seen by Provider: 01/31/23 15:26 Source: patient and family Mode of arrival: ambulatory Limitations: no limitations History of Present Illness HPI narrative: Patient is a 67-year-old female presents emergency department with reports of abdominal pain, reportedly her as surgical drain fell out to this morning, and she has localized pain. drain was initially placed on 11/18/2022. She states that she was taking a bath today and after getting out when she was drying off the drain was suddenly fell out. She denies any nausea or vomiting. Denies fevers or chills. Daughter states that she was supposed to have an appointment with a doctor at [facility] last week, but this was rescheduled for 02/03/2023. Related Data Home Medications Medication Instructions Recorded Confirmed folic acid 1 mg tablet 1 mg PO DAILY 03/24/22 12/25/22 levothyroxine 50 mcg tablet 50 mcg PO DAILY 03/24/22 12/25/22 (Euthyrox) methotrexate sodium 2.5 mg tablet 2.5 mg PO TU@0900 03/24/22 12/25/22 methotrexate sodium 2.5 mg tablet 5 mg PO MO@0900 03/24/22 12/25/22 mycophenolate mofetil 500 mg tablet 500 mg PO BID 03/24/22 12/25/22 prednisone 5 mg tablet 5 mg PO DAILY 03/24/22 12/25/22 quetiapine 25 mg tablet 12.5 mg PO BEDTIME 03/24/22 12/25/22 bisoprolol fumarate 10 mg tablet 5 mg PO QAM 11/18/22 12/25/22 calcium carbonate 500 mg calcium 500 mg PO DAILY 11/18/22 12/25/22 (1,250 mg) tablet zolpidem 10 mg tablet (Ambien) 10 mg PO BEDTIME PRN Insomnia 11/18/22 12/25/22 Previous Rx's Medication Instructions Recorded docusate sodium 100 mg capsule 100 mg PO BID #30 caps 11/21/22 (Colace) oxycodone 5 mg tablet 5 mg PO Q4H PRN pain (scale score 11/21/22 7-10) #26 tabs Allergies Allergy/AdvReac Type Severity Reaction Status Date / Time No Known Allergies Allergy Verified 12/25/22 11:10 [facility] Past Medical History Medical History Gallstones Arthritis Abdominal pain PAD (peripheral artery disease) Jeff's thyroiditis Pemphigus vulgaris Surgical History H/O: hysterectomy Family History Family History Mother Diabetes Social History Social History Household Members: Spouse Housing: Apartment Do you presently have visiting nurse or other home services: No Alcohol intake: never Patient Tobacco Use Status: Former Tobacco user e-Cigarette/Vaping Use: Never Used Second Hand Smoke Exposure: No Advance Directives: No Advance Directives Information Provided: Yes service: No Current occupational status: retired Physical Exam ED Vital Signs: Vital Signs - 24 hr 01/31/23 11:53 01/31/23 15:56 Temperature 96.5 F L 98.7 F Pulse Rate 75 76 Respiratory Rate 18 16 Blood Pressure 141/62 H 145/71 H Pulse Oximetry 98 97 Oxygen Delivery Method Room Air Room Air BMI result Body Mass Index 28.8 Course Course Course Narrative: This is a rapid medical exam. deferred additional HPI, ROS, PE to primary provider. 67 to female here with RUQ abdominal pain, s/p drain falling out today. 11/18 had GB drain placed by Dr Humphries No additional complaints Will need surgery constult VSS Reevaluation(s) Reevaluation #1: Patient signed out to Cathy Reaves pending labs and CT imaging. Time: 16:10 Medical Decision Making Medical Decision Making MDM Narrative: Patient is a 67-year-old female with past medical history of cholelithiasis, arthritis, peripheral artery disease, Jeff's thyroiditis who presents emergency department with reports of abdominal pain, reportedly her as surgical drain fell out to this morning, and she has localized pain. Upon review of her most recent outpatient visit with general surgery; Dr. Humphries, 12/25/2022 an attempted cholecystectomy was performed on 11/19/2022, due to extensive adhesions with the duodenal wall the transverse colon to the gallbladder, a lot of lysis to the adhesions had to be performed, and she underwent enterotomy on the transverse colon, due to this cholecystectomy with aborted and a cholecystostomy to drain was placed at that time. Repeat CT scan showed decreased inflammation to the gallbladder and stones, she was advised that she will require referral to a tertiary care center due to the anticipated difficulty with removal of her gallbladder, and she was referred to [facility] Differential Diagnosis Differential Diagnoses: The differential diagnosis associated with the presentation includes (Cholecystitis, cholelithiasis, thought to be less likely gastritis, SBO, colitis) Admission/Observation Consideration of admission/observation: Escalation of care including admission/observation considered (See course narrative and narrative above for further detail) Lab Data MDM Lab Attestation statement: I reviewed the patient's lab results. Independent Historian Clinical information obtained from an independent historian. History obtained from or confirmed by: Other (Daughter present who confirms history) External Record Review External record reviewed: Outpatient record Discharge Plan Discharge Clinical Impression: Abdominal pain Patient Disposition: Still a Patient Prescriptions: No Action quetiapine 25 mg Tablet 12.5 mg PO BEDTIME prednisone 5 mg Tablet 5 mg PO DAILY mycophenolate mofetil 500 mg Tablet 500 mg PO BID Hold Instructions: Resume on 04/02/22. levothyroxine [Euthyrox] 50 mcg Tablet 50 mcg PO DAILY folic acid 1 mg Tablet 1 mg PO DAILY methotrexate sodium 2.5 mg Tablet 5 mg PO MO@0900 Hold Instructions: Resume on 04/02/22. methotrexate sodium 2.5 mg Tablet 2.5 mg PO TU@0900 Hold Instructions: Resume on 04/02/22. bisoprolol fumarate 10 mg tablet 5 mg PO QAM calcium carbonate 500 mg calcium (1,250 mg) Tablet 500 mg PO DAILY zolpidem [Ambien] 10 mg Tablet 10 mg PO BEDTIME PRN (Reason: Insomnia) docusate sodium [Colace] 100 mg capsule 100 mg PO BID Qty: 30 0RF oxycodone 5 mg tablet 5 mg PO Q4H PRN (Reason: pain (scale score 7-10)) Qty: 26 0RF Rx Instructions: Partial Fill upon patient request.
[2023-01-31 15:56] VITALS: BP 145/71; PULSE 76; RESP 16; TEMP 37.1; O2SAT 97
--- NOTE | 2023-01-31 16:16 | PC.NURSE ---
pt a&o x4, pleasant, calm, and cooperative. 20G IV placed to LAC. labs drawn and sent. pt awaiting CT scans and lab results. visitor at bedside. pt currently resting quietly on stretcher in no apparent distress. rr even/unlabored. call lu within pt reach. plan of care ongoing.
[2023-01-31 16:17] LABS: MANUAL DIFF FLAG NO
[2023-01-31 16:19] LABS: Basophils Absolute Auto 0.1 X10*3/uL (0.0-0.2); Basophils Percent Auto 0.8 % (0-2); Eosinophils Absolute Auto 0.6 X10*3/uL (0.0-0.4); Eosinophils Percent Auto 5.8 % (0-4); Hematocrit 41.4 % (37.0-47.0); Hemoglobin 12.8 g/dl (12.0-16.0); Imm Gran Abs Auto 0.04 X10*3/uL (0.00-0.03); Imm Gran Pct Auto 0.4 % (0.0-0.4); Lymphocytes Absolute Auto 2.1 X10*3/uL (1.2-4.9); Lymphocytes Percent Auto 20.7 % (20-40); Mean Corpuscular HGB Conc 30.9 g/dl (31.0-35.0); Mean Corpuscular Hemoglobin 27.7 pg (27.0-33.0); Mean Corpuscular Volume 89.6 fL (80.0-98.0); Monocytes Absolute Auto 1.1 X10*3/uL (0.1-1.2); Monocytes Percent Auto 10.9 % (2-11); Neutrophils Absolute Auto 6.2 x10*3/uL (2.0-8.3); Neutrophils Percent Auto 61.4 % (45-73); Platelet Count 269 X10*3/uL (160-400); Red Blood Count 4.62 X10*6/uL (4.20-5.50); Red Cell Distribution Width 15.9 % (11.0-16.0); White Blood Count 10.1 X10*3/uL (4.8-10.8)
[2023-01-31 16:20] LABS: Appearance Urine Clear; Color Urine Yellow; Glucose Urine UA Negative (Negative); Leukocyte Esterase Urine Moderate (2+) (Negative); Nitrite Urine Negative (Negative); PH 5.5 (5.0-9.0); Specific Gravity - Urine 1.025 (1.005-1.025); UMIC TRIGGER UACC YES; Urine Blood Small (1+) (Negative); Urine Ketones Negative (Negative); Urine Protein Negative (Neg-Trace)
[2023-01-31 16:23] LABS: Bacteria Urine None Seen (None Seen); Hyaline Casts Urine 0-2 /LPF (0-2); UACC Culture Trigger YES; WBC Urine 21-50 /HPF (0-5)
[2023-01-31 16:26] LABS: Prothrombin Time 12.3 SEC (11.1-13.3)
[2023-01-31 16:31] LABS: Alanine Aminotransferase 23 U/L (0-31); Albumin Level 3.7 g/dL (3.5-5.0); Alkaline Phosphatase 79 U/L (39-117); Anion Gap 10 (12-20); Aspartate Amino Transferase 17 U/L (5-31); Bilirubin Total 0.3 mg/dL (0.0-1.0); Blood Urea Nitrogen 15 mg/dL (9-16); Calcium 9.2 mg/dL (8.4-10.2); Carbon Dioxide 26 mmol/L (22-29); Chloride 107 mmol/L (96-108); Creatinine Clr Calc Pharmacy 57.8; Estimated Glomerular Filt Rate > 60; Glucose Random 87 mg/dL (60-115); Lipase 37 U/L (8-78); Potassium 3.3 mmol/L (3.3-5.1); Sodium 140 mmol/L (135-145); Total Protein 7.7 g/dL (6.5-8.0)
[2023-01-31] MEDS: iohexoL 350 MG/ML 100 ML INFUS..BTL IV (17:22)
[2023-01-31 18:13] VITALS: BP 135/68; PULSE 68; RESP 16; TEMP 36.8; O2SAT 98
--- NOTE | 2023-01-31 19:27 | MHC.EDTECH ---
[facility] called back regarding patient's surgery @ 19:24
[2023-01-31 20:01] LABS: Lactic Acid 0.9 mmol/L (0.5-2.0)
[2023-01-31 20:10] VITALS: BP 148/61; PULSE 70; RESP 18; TEMP 36.8; O2SAT 96
--- NOTE | 2023-01-31 20:12 | MHC.EDTECH ---
This pct Draw Patient 2nd sets of blood culture and sent to lab ,vitals taken ,pt daughter at bedside .
[2023-01-31] MEDS: Piperacillin Sodium/Tazobactam 3.375 GM in 0.9 % Sodium Chloride 50 ML IV (20:14)
--- NOTE | 2023-01-31 21:47 | PM.EVENT ---
Event Note Date of Service: 01/31/23 Event Note: Called to admit patient for abdominal wall cellulitis by Betty Reaves ED MERT Reviewed her chart. She is afebrile with no leucocytosis. Reviewed Abdominal CT which is reported as having findings concerning for an infection along site of C-tube Went at bedside and spoke to patient and her daughter. She reports having the c-tube placed 11/18. 2 weeks later, Dr. Humphries attempted to remove it but was not able to. She was referred to [facility] where she has a follow up appointment in the next 3 days 02/03/2023. She reports that the C-tube fell out this morning. Physical exam Vital signs are stable Labs were reviewed and are stable Abdominal exam: noted with a tract in the RUQ. No surrounding induration. No pain on palpation Ass/Plan - presentation and w/u not consistent with cellulitis - D/W Dr. Casillas from surgery and w both agree to send patient home on an oral antibiotic and advising her to keep her follow up appointment at [facility]. - D/W MERT Reaves who is agreable to discharging her home on antibiotics. Time Spent With Patient Time: Total time managing care of this patient today ____ minutes.
== END 2023-01-31 20:40 | disposition home or self-care (01) ==
PROVIDERS: Nurse Practitioner Family; Physician Assistant; Emergency Provider Emergency Medicine Emergency Medical Services; PCP Internal Medicine Geriatric Medicine
DX: R10.11 Right upper quadrant pain (principal); K80.20 Calculus of gallbladder without cholecystitis without obstruction; E06.3 Autoimmune thyroiditis; I73.9 Peripheral vascular disease, unspecified; M19.90 Unspecified osteoarthritis, unspecified site
CPT/HCPCS: 36415; 74177; 80053; 81001; 83605; 83690; 85025; 85610; 87040; 87086; 96365; 99284; J2543; Q9967

== ENCOUNTER → 2023-01-31 15:08 | Outpatient (BNV) | payer OTHER, SELFPAY | PROVIDERS: Emergency Provider Emergency Medicine Emergency Medical Services; PCP Internal Medicine Geriatric Medicine; Visit Provider Internal Medicine | DX: K94.03 Colostomy malfunction (principal) | CPT/HCPCS: 99282 ==

== ENCOUNTER 2023-03-25 11:08 | Outpatient (REF) | payer OTHER, SELFPAY ==
[2023-03-25 11:52] LABS: MANUAL DIFF FLAG NO
[2023-03-25 12:07] LABS: Basophils Absolute Auto 0.1 X10*3/uL (0.0-0.2); Basophils Percent Auto 0.7 % (0-2); Eosinophils Absolute Auto 0.3 X10*3/uL (0.0-0.4); Eosinophils Percent Auto 3.5 % (0-4); Hematocrit 39.9 % (37.0-47.0); Hemoglobin 12.3 g/dl (12.0-16.0); Imm Gran Abs Auto 0.03 X10*3/uL (0.00-0.03); Imm Gran Pct Auto 0.4 % (0.0-0.4); Lymphocytes Absolute Auto 1.4 X10*3/uL (1.2-4.9); Lymphocytes Percent Auto 16.8 % (20-40); Mean Corpuscular HGB Conc 30.8 g/dl (31.0-35.0); Mean Corpuscular Volume 90.7 fL (80.0-98.0); Mean Platelet Volume 11.6 fL (9.4-12.3); Monocytes Absolute Auto 0.7 X10*3/uL (0.1-1.2); Monocytes Percent Auto 8.2 % (2-11); Neutrophils Absolute Auto 5.8 x10*3/uL (2.0-8.3); Neutrophils Percent Auto 70.4 % (45-73); Platelet Count 236 X10*3/uL (160-400); Red Cell Distribution Width 15.7 % (11.0-16.0); White Blood Count 8.3 X10*3/uL (4.8-10.8)
[2023-03-25 12:50] LABS: Alanine Aminotransferase 20 U/L (0-31); Albumin Level 3.5 g/dL (3.5-5.0); Alkaline Phosphatase 74 U/L (39-117); Anion Gap 9 (12-20); Aspartate Amino Transferase 18 U/L (5-31); Bilirubin Total 0.4 mg/dL (0.0-1.0); Blood Urea Nitrogen 12 mg/dL (9-16); Calcium 9.4 mg/dL (8.4-10.2); Carbon Dioxide 27 mmol/L (22-29); Chloride 107 mmol/L (96-108); Estimated Glomerular Filt Rate > 60; Glucose Random 83 mg/dL (60-115); Potassium 3.3 mmol/L (3.3-5.1); Sodium 140 mmol/L (135-145); Total Protein 7.1 g/dL (6.5-8.0)
[2023-03-25 13:00] LABS: TSH reflex Free T4 0.44 uIU/mL (0.32-4.0)
== END 2023-03-25 11:09 | disposition home or self-care (01) ==
LOC: HO.HHCL 11:08
PROVIDERS: Visit Provider Internal Medicine Geriatric Medicine
DX: E03.9 Hypothyroidism, unspecified (principal); K81.9 Cholecystitis, unspecified
CPT/HCPCS: 36415; 80053; 84443; 85025

== ENCOUNTER 2023-04-14 22:47 | Emergency (ER) | payer OTHER, SELFPAY ==
--- NOTE | ~2023-04-14 | CT_ITS ---
EXAMINATION: CT ABDOMEN AND PELVIS WITHOUT CONTRAST CLINICAL INFORMATION: Abdominal pain. COMPARISON: None available. TECHNIQUE: Multidetector volumetric imaging was performed from the superior aspect of the liver through the pubic symphysis. Sagittal and coronal reformatted images were obtained on the technologist's workstation. This CT examination was performed using dose optimization techniques as appropriate, variously including the following: *Automated exposure control *Adjustment of mA and/or kV according to patient size (this includes techniques or standardized protocols for targeted exams where dose is matched to indication/reason for exam; i.e. extremities or head) *Use of iterative reconstruction technique DLP: 518 mGy-cm FINDINGS: LUNG BASES: The visualized lung bases are unremarkable. LIVER, GALLBLADDER, AND BILIARY TREE: The liver is normal in size, shape, and attenuation. No focal hepatic lesion or biliary ductal dilatation is present. A few small gallstones are noted at the neck of the gallbladder and possibly within the proximal cystic duct. There appears to be minimal infiltrative change in the right upper quadrant without gallbladder wall thickening or pericholecystic fluid. PANCREAS: Unremarkable. SPLEEN: Unremarkable. ADRENAL GLANDS: Unremarkable. KIDNEYS AND URETERS: The kidneys are normal in size, shape, and attenuation. No hydronephrosis, hydroureter, or calculi seen. No perinephric stranding. BLADDER: Unremarkable. GASTROINTESTINAL TRACT: The small and large bowel are unremarkable. The appendix is unremarkable. ABDOMINAL WALL: No significant hernia is appreciated. LYMPH NODES: Normal. VASCULAR: There is atherosclerotic plaque of the abdominal aorta and proximal branches. PELVIC VISCERA: Unremarkable. OSSEOUS STRUCTURES: Unremarkable. CT/CT abdomen pelvis wo IV con IMPRESSION: Small gallstones at the neck of the gallbladder and possibly within the proximal cystic duct. There is minimal infiltrative change in the right upper quadrant without gallbladder wall thickening or pericholecystic fluid. These findings raise the question of gallbladder colic/early cholecystitis. Consider HIDA scan if confirmation is needed. No other significant abnormality seen. Fleischner guidelines were followed.
--- NOTE | ~2023-04-14 | NM_ITS ---
EXAMINATION: BILIARY TRACT IMAGING STUDY CLINICAL INFORMATION: Right upper quadrant pain, rule out acute cholecystitis.. COMPARISON: No previous biliary scan is available for comparison. Abdominal ultrasound and CT scan of the abdomen and pelvis, both dated 04/15/2023, the same date as this biliary scan, are available for comparison.. TECHNIQUE: Serial gamma scintillation camera images were obtained over the abdomen for a total observation period of 106 minutes following the intravenous administration of 5 mCi Tc-99m Mebrofenin. The patient was unable to cooperate with additional imaging and refused more images. FINDINGS: There is good concentration of activity in the liver by 5 minutes post injection. Biliary activity is visualized by 10 minutes. Small bowel is well visualized by 20 minutes. The gallbladder is not visualized at any time during the study. MO/MO hepatobiliary wo pharm IMPRESSION: Abnormal study. The gallbladder is not visualized, which is evidence of an obstructed cystic duct and strong evidence to suggest the diagnosis of acute cholecystitis. The study was terminated early because of the patient's inability to cooperate with further imaging. Occasionally, patients show late visualization of the gallbladder which would be evidence against acute cholecystitis, but patients who do not visualize the gallbladder by 60 minutes and show subsequent delayed visualization, which is unusual, usually have chronic cholecystitis. The common bile duct is patent. Liver function appears normal.
--- NOTE | ~2023-04-14 | US_ITS ---
EXAMINATION: US ABDOMEN LIMITED CLINICAL INFORMATION: Right upper quadrant pain.. COMPARISON: None available. TECHNIQUE: Real-time imaging of the right upper quadrant abdominal viscera. FINDINGS: PANCREAS: Normal. LIVER: Visualized liver is normal in appearance. GALLBLADDER: The gallbladder is normally distended. There is faintly echogenic nonshadowing material within the gallbladder. There is no gallbladder wall thickening or pericholecystic fluid. COMMON BILE DUCT: Normal in caliber measuring 0.5 cm in diameter. RIGHT KIDNEY: Not assessed. FREE FLUID: None. US/US abdomen limited IMPRESSION: Faintly echogenic nonshadowing material within the gallbladder. This is a nonspecific finding but may represent sludge. There is no ultrasound evidence to suggest acute cholecystitis.
[2023-04-14 22:53] VITALS: BP 198/87; PULSE 97; RESP 18; TEMP 36.9; O2SAT 97; BMI 26.7
[2023-04-14 23:05] LABS: MANUAL DIFF FLAG NO
[2023-04-14 23:06] LABS: Basophils Absolute Auto 0.1 X10*3/uL (0.0-0.2); Basophils Percent Auto 0.4 % (0-2); Eosinophils Absolute Auto 0.3 X10*3/uL (0.0-0.4); Eosinophils Percent Auto 1.9 % (0-4); Hematocrit 39.6 % (37.0-47.0); Hemoglobin 12.6 g/dl (12.0-16.0); Imm Gran Abs Auto 0.04 X10*3/uL (0.00-0.03); Imm Gran Pct Auto 0.3 % (0.0-0.4); Lymphocytes Absolute Auto 1.4 X10*3/uL (1.2-4.9); Lymphocytes Percent Auto 10.8 % (20-40); Mean Corpuscular HGB Conc 31.8 g/dl (31.0-35.0); Mean Corpuscular Hemoglobin 28.3 pg (27.0-33.0); Mean Platelet Volume 11.2 fL (9.4-12.3); Monocytes Absolute Auto 1.3 X10*3/uL (0.1-1.2); Monocytes Percent Auto 10.3 % (2-11); Neutrophils Absolute Auto 9.9 x10*3/uL (2.0-8.3); Neutrophils Percent Auto 76.3 % (45-73); Platelet Count 198 X10*3/uL (160-400); Red Blood Count 4.45 X10*6/uL (4.20-5.50); Red Cell Distribution Width 15.1 % (11.0-16.0)
[2023-04-14 23:19] LABS: Alanine Aminotransferase 14 U/L (0-31); Albumin Level 3.8 g/dL (3.5-5.0); Alkaline Phosphatase 76 U/L (39-117); Anion Gap 13 (12-20); Aspartate Amino Transferase 16 U/L (5-31); Bilirubin Direct 0.1 mg/dL (0.0-0.5); Bilirubin Total 0.4 mg/dL (0.0-1.0); Blood Urea Nitrogen 16 mg/dL (9-16); Calcium 9.7 mg/dL (8.4-10.2); Carbon Dioxide 26 mmol/L (22-29); Chloride 106 mmol/L (96-108); Creatinine Clr Calc Pharmacy 52.6; Estimated Glomerular Filt Rate > 60; Glucose Random 130 mg/dL (60-115); Potassium 3.8 mmol/L (3.3-5.1); Sodium 141 mmol/L (135-145); Total Protein 7.4 g/dL (6.5-8.0)
[2023-04-15 01:24] LABS: Lipase 37 U/L (8-78)
[2023-04-15 02:42] VITALS: BP 189/83; PULSE 59; RESP 18; TEMP 36.8; O2SAT 99
[2023-04-15] MEDS: ondansetron HCL 4 MG/2 ML VIAL IVPUSH (03:09)
[2023-04-15] MEDS: Ketorolac Tromethamine 30 MG/ML VIAL IVPUSH (03:09)
[2023-04-15] MEDS: 0.9 % Sodium Chloride 1,000 ML 999 ML IV (03:10)
[2023-04-15 04:00] VITALS: BP 178/83; PULSE 64; RESP 18; O2SAT 98
--- NOTE | 2023-04-15 04:04 | ED.ABDPAIN ---
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 Humphries. No fever, no chills, no nausea, no vomiting. Related Data Home Medications Medication Instructions Recorded Confirmed folic acid 1 mg tablet 1 mg PO DAILY 03/24/22 12/25/22 levothyroxine 50 mcg tablet 50 mcg PO DAILY 03/24/22 12/25/22 (Euthyrox) methotrexate sodium 2.5 mg tablet 2.5 mg PO TU@0900 03/24/22 12/25/22 methotrexate sodium 2.5 mg tablet 5 mg PO MO@0900 03/24/22 12/25/22 mycophenolate mofetil 500 mg tablet 500 mg PO BID 03/24/22 12/25/22 prednisone 5 mg tablet 5 mg PO DAILY 03/24/22 12/25/22 quetiapine 25 mg tablet 12.5 mg PO BEDTIME 03/24/22 12/25/22 bisoprolol fumarate 10 mg tablet 5 mg PO QAM 11/18/22 12/25/22 calcium carbonate 500 mg calcium 500 mg PO DAILY 11/18/22 12/25/22 (1,250 mg) tablet zolpidem 10 mg tablet (Ambien) 10 mg PO BEDTIME PRN Insomnia 11/18/22 12/25/22 Previous Rx's Medication Instructions Recorded docusate sodium 100 mg capsule 100 mg PO BID #30 caps 11/21/22 (Colace) oxycodone 5 mg tablet 5 mg PO Q4H PRN pain (scale score 11/21/22 7-10) #26 tabs amoxicillin 875 mg-potassium 1 tab PO BID 10 days #20 tabs 01/31/23 clavulanate 125 mg tablet Allergies Allergy/AdvReac Type Severity Reaction Status Date / Time No Known Allergies Allergy Verified 12/25/22 11:10 Review of Systems Review of Systems All other systems are reviewed and are negative Constitutional: Reports as per HPI and Reports no additional constitutional complaints Eyes: Reports as per HPI and Reports no additional eye complaints Reports system reviewed and no additional complaints, except as documented Cardiovascular: Reports as per HPI and Reports no additional cardiovascular complaints Respiratory: Reports as per HPI and Reports no additional respiratory complaints Gastrointestinal: Reports as per HPI and Reports no additional gastrointestinal complaints Genitourinary: Reports no additional female genitourinary complaints Musculoskeletal: Reports no additional musculoskeletal complaints Skin/Breast: Reports system reviewed and no additional complaints, except as docu Psychiatric: Reports no additional psychiatric complaints Endocrine: Reports no additional endocrine complaints Hematologic/Lymphatic: Reports no additional hematologic/lymphatic complaints Allergic/Immunologic: Reports no additional allergic/immunologic complaints Reports system reviewed and no additional complaints, except as documented and Reports Abnormal speech present [facility] Past Medical History Medical History Gallstones Arthritis Abdominal pain PAD (peripheral artery disease) Jeff's thyroiditis Pemphigus vulgaris Surgical History H/O: hysterectomy Family History Family History Mother Diabetes Social History Social History Household Members: Spouse Housing: Apartment Do you presently have visiting nurse or other home services: No Alcohol intake: never Patient Tobacco Use Status: Former Tobacco user Smoked in Last 30 Days: No e-Cigarette/Vaping Use: Never Used Second Hand Smoke Exposure: No Use of substances other than those prescribed or required for medical reasons: No Advance Directives: No Advance Directives Information Provided: No service: No Current occupational status: retired Physical Exam ED Vital Signs: Vital Signs - 24 hr 04/14/23 22:53 04/15/23 02:42 04/15/23 04:00 Temperature 98.4 F 98.2 F Pulse Rate 97 59 64 Respiratory Rate 18 18 18 Blood Pressure 198/87 H 189/83 H 178/83 H Pulse Oximetry 97 99 98 Oxygen Delivery Method Room Air Room Air 04/15/23 05:16 Temperature Pulse Rate 63 Respiratory Rate 16 Blood Pressure 185/84 H Pulse Oximetry 99 Oxygen Delivery Method Room Air BMI result Body Mass Index 26.7 Vital signs have been reviewed and appear to be correct. Blood pressure elevated. Heart rate normal. Respiratory rate normal. Temperature normal. Oxygen saturation normal. Appearance: Alert. Oriented X3. No acute distress. Head: Normal external exam. Normocephalic. Atraumatic. No Bah signs noted. No raccoon eyes noted Eyes: PERRLA. EOMI. Conjunctiva and sclera normal. Eyelids normal. ENT: TM's Normal. Pharynx normal. Uvula midline. Moist mucous membranes. No trismus noted. No drooling noted. No muffled voice noted. Neck: Normal inspection. Neck supple. FROM. No adenopathy. Thyroid Normal. No meningeal signs. No neck mass noted. CVS: Normal heart rate and rhythm. Heart sound normal. No murmurs noted. Pulses normal throughout. Respiratory: No respiratory distress. Painless inspiration. Breath sounds normal. No wheezes/rales/rhonchi noted. Chest nontender. No accessory muscle usage noted or decreased air movement noted. Abdomen: Soft, right upper quadrant tenderness, no rebound tenderness, no guarding. Bowel sounds normal in all 4 quadrants. No distention noted. No organomegaly noted. No visible injury noted. Back: No CVA tenderness. Full range of motion noted. Skin: Skin warm and dry. Normal skin color. Normal skin turgor. No rashes/lesions/lacerations noted. Extremities: No lower extremity edema. Extremities exhibit normal range of motion. Extremities nontender. Neuro: Oriented X 3. Cranial nerve exam: II-XII are grossly intact No motor deficit. No sensory deficit. Reflexes normal. Course Reevaluation(s) Reevaluation #1: Patient now feels much more better, no abdominal pain, no nausea, no vomiting. CT abdomen pelvis raising a concern of gallbladder neck stone and possible early acute cholecystitis however the ultrasound is showing no sign of acute cholecystitis HIDA scan will be next test, case was signed out to to follow-up and disposition the patient. Time: 06:09 Medical Decision Making Differential Diagnosis Differential Diagnoses: The differential diagnosis associated with the presentation includes (Pyelonephritis, acute cholecystitis, cholelithiasis, acute pancreatitis, colitis, diverticulitis, electrolyte abnormality, severe anemia.) Admission/Observation Consideration of admission/observation: Escalation of care including admission/observation considered Lab Data MDM Lab Attestation statement: I reviewed the patient's lab results. 04/14/23 23:01 04/14/23 23:01 Labs: Lab Results 04/14/23 04/15/23 Range/Units 23:01 05:16 WBC 13.0 H (4.8-10.8) X10*3/uL RBC 4.45 (4.20-5.50) X10*6/uL Hgb 12.6 (12.0-16.0) g/dl Hct 39.6 (37.0-47.0) % MCV 89.0 (80.0-98.0) fL MCH 28.3 (27.0-33.0) pg MCHC 31.8 (31.0-35.0) g/dl RDW 15.1 (11.0-16.0) % Plt Count 198 (160-400) X10*3/uL MPV 11.2 (9.4-12.3) fL Immature Gran % (Auto) 0.3 (0.0-0.4) % Neut % (Auto) 76.3 H (45-73) % Lymph % (Auto) 10.8 L (20-40) % [place] % (Auto) 10.3 (2-11) % Eos % (Auto) 1.9 (0-4) % Baso % (Auto) 0.4 (0-2) % Lymph # (Auto) 1.4 (1.2-4.9) X10*3/uL [place] # (Auto) 1.3 H (0.1-1.2) X10*3/uL Eos # (Auto) 0.3 (0.0-0.4) X10*3/uL Baso # (Auto) 0.1 (0.0-0.2) X10*3/uL Abs Immat Gran (auto) 0.04 H (0.00-0.03) X10*3/uL Absolute Neuts (auto) 9.9 H (2.0-8.3) x10*3/uL Absolute Nucleated RBC 0.000 (0.0-0.012) X10*3/uL Nucleated RBC % (auto) 0.0 (0.0-0.2) /100WBC Sodium 141 (135-145) mmol/L Potassium 3.8 (3.3-5.1) mmol/L Chloride 106 (96-108) mmol/L Carbon Dioxide 26 (22-29) mmol/L Anion Gap 13 (12-20) BUN 16 (9-16) mg/dL Creatinine 0.89 (0.5-1.4) mg/dL Estim Creat Clear Calc 52.6 Estimated GFR > 60 Random Glucose 130 H (60-115) mg/dL Calcium 9.7 (8.4-10.2) mg/dL Total Bilirubin 0.4 (0.0-1.0) mg/dL Direct Bilirubin 0.1 (0.0-0.5) mg/dL AST 16 (5-31) U/L ALT 14 (0-31) U/L Alkaline Phosphatase 76 (39-117) U/L Total Protein 7.4 (6.5-8.0) g/dL Albumin 3.8 (3.5-5.0) g/dL Lipase 37 (8-78) U/L Urine Color Yellow Urine Appearance Cloudy Urine pH 8.5 (5.0-9.0) Ur Specific [place] 1.015 (1.005-1.025) Urine Protein Negative (Neg-Trace) mg/dL Urine Glucose (UA) Negative (Negative) mg/dL Urine Ketones Trace (Negative) mg/dL Urine Blood Trace H (Negative) Urine Nitrite Negative (Negative) Ur Leukocyte Esterase Trace H (Negative) Urine RBC 6-10 H (0-2) /HPF Urine WBC 6-10 H (0-5) /HPF Ur Squamous Epith Cells 0-2 (0-2) /HPF Urine Bacteria None Seen (None Seen) Hyaline Casts 0-2 (0-2) /LPF Independent Interpretation I performed an independent interpretation of an: Ultrasound (Gallbladder: No acute cholecystitis.) and CT Scan (Abdomen and pelvis: Small gallstones at the neck of the gallbladder and possibly within the proximal cystic duct. There is minimal infiltrative change in the right upper quadrant without gallbladder wall thickening or pericholecystic fluid. These findings raise the question of gallbladder colic/zee) Radiology Impression Discussion of test interpretation with radiology: I have reviewed the radiologist's reading. Chronic Conditions Patient?s care impacted by: Other (Gallbladder disease.) Medications Administered Discontinued Medications Generic Name Dose Route Start Last Admin Trade Name Freq PRN Reason Stop Dose Admin Sodium Chloride 1,000 mls @ 999 mls/hr 04/15/23 02:59 04/15/23 04:36 Ns IV 04/15/23 03:59 Infused .Q1H1M ONE Infusion Ketorolac Tromethamine 30 mg 04/15/23 02:59 04/15/23 03:09 Ketorolac Tromethamine 30 Mg/Ml Vial IVPUSH 04/15/23 03:00 30 mg ONCE ONE Administration Ondansetron HCl 4 mg 04/15/23 02:59 04/15/23 03:09 Ondansetron Hcl 4 Mg/2 Ml Vial IVPUSH 04/15/23 03:00 4 mg ONCE ONE Administration Critical Care Time Critical Care Time Critical Care Time: Yes Total Critical Care Time: 60 Attestation: I spent 60 minutes providing critical care service to the patient, this including time spent at the bedside to evaluate the patient, reassess the patient, monitoring vital signs, review labs, and radiographic studies, counseling the patient/family, discussing the case with consultants, disposition the patient. Discharge Plan Discharge Clinical Impression: Abdominal pain Patient Disposition: Still a Patient Prescriptions: No Action quetiapine 25 mg Tablet 12.5 mg PO BEDTIME prednisone 5 mg Tablet 5 mg PO DAILY mycophenolate mofetil 500 mg Tablet 500 mg PO BID Hold Instructions: Resume on 04/02/22. levothyroxine [Euthyrox] 50 mcg Tablet 50 mcg PO DAILY folic acid 1 mg Tablet 1 mg PO DAILY methotrexate sodium 2.5 mg Tablet 5 mg PO MO@0900 Hold Instructions: Resume on 04/02/22. methotrexate sodium 2.5 mg Tablet 2.5 mg PO TU@0900 Hold Instructions: Resume on 04/02/22. bisoprolol fumarate 10 mg tablet 5 mg PO QAM calcium carbonate 500 mg calcium (1,250 mg) Tablet 500 mg PO DAILY zolpidem [Ambien] 10 mg Tablet 10 mg PO BEDTIME PRN (Reason: Insomnia) docusate sodium [Colace] 100 mg capsule 100 mg PO BID Qty: 30 0RF oxycodone 5 mg tablet 5 mg PO Q4H PRN (Reason: pain (scale score 7-10)) Qty: 26 0RF Rx Instructions: Partial Fill upon patient request. amoxicillin-pot clavulanate 875-125 mg tablet 1 tab PO BID 10 Days Qty: 20 0RF Referrals: Name,MD Nic [Primary Care Provider] -
[2023-04-15 05:16] VITALS: BP 185/84; PULSE 63; RESP 16; O2SAT 99
[2023-04-15 05:38] LABS: Appearance Urine Cloudy; Color Urine Yellow; Glucose Urine UA Negative (Negative); Leukocyte Esterase Urine Trace (Negative); Nitrite Urine Negative (Negative); PH 8.5 (5.0-9.0); Specific Gravity - Urine 1.015 (1.005-1.025); UMIC TRIGGER UACC YES; Urine Blood Trace (Negative); Urine Ketones Trace mg/dL (Negative); Urine Protein Negative (Neg-Trace)
[2023-04-15 05:41] LABS: Bacteria Urine None Seen (None Seen); Hyaline Casts Urine 0-2 /LPF (0-2); Squamous Epithelial Cell Urine 0-2 /HPF (0-2); UACC Culture Trigger YES
[2023-04-15 06:00] VITALS: BP 183/81; PULSE 65; RESP 18; TEMP 36.9; O2SAT 98
[2023-04-15 08:01] LABS: C Reactive Protein 0.84 mg/dL (< or = 0.50)
[2023-04-15 10:08] VITALS: BP 201/81; PULSE 67; RESP 18; TEMP 36.6; O2SAT 98
[2023-04-15] MEDS: Morphine Sulfate 4 MG/ML CARTRIDGE IVPUSH (10:53)
[2023-04-15 11:08] VITALS: BP 153/72
[2023-04-15] MEDS: Bisoprolol Fumarate 5 MG TABLET PO (11:08)
--- NOTE | 2023-04-15 12:42 | P.CONGS_ITS ---
History of Present Illness Consult details Consult date: 04/15/23 Narrative: 67F who is wellknown to me she had undergone attempted cholecystectomy in October, for cholecystitis. It turned out that she had significant adhesions surrounding the gallbladder and this was encased in duodenal as well as the transverse colon. We could not therefore proceed with cholecystectomy then. I placed a tube cholecystectomy at that time. She was eventually discharged. I had referred her to [facility] for consultation for another attempted cholecystectomy. She was evaluated there late last year. She was told that there it was ?too risky? to proceed with cholecystectomy. She does admit to periodic pain in the area. She has good oral intake. She denies any fever. She was brought to the ED last night for an episode of pain. She denied any vomiting. She actually says that she is much better today and says her pain has resolved.. Review of Systems 2 Constitutional: Constitutional: Denies chills and Denies fever(s) Cardiovascular: Cardiovascular: Denies chest pain, Denies dyspnea and Denies dyspnea on exertion Respiratory: Respiratory: Denies cough, Denies dyspnea and Denies dyspnea on exertion Gastrointestinal: Gastrointestinal: Denies hematochezia and Denies change in bowel habits Genitourinary: Genitourinary: Denies hematuria Musculoskeletal: Musculoskeletal: Denies back pain and Denies limited range of motion Neurologic: Denies focal weakness and Denies convulsions Psychiatric: Psychiatric: Denies depression and Denies mood swings PMFSH Past Medical History Medical History Gallstones Arthritis Abdominal pain PAD (peripheral artery disease) Jeff's thyroiditis Pemphigus vulgaris Family History Family History Mother Diabetes Surgical History Surgical History H/O: hysterectomy Social History Social History Household Members: Spouse Housing: Apartment Do you presently have visiting nurse or other home services: No Alcohol intake: never Patient Tobacco Use Status: Former Tobacco user Smoked in Last 30 Days: No e-Cigarette/Vaping Use: Never Used Second Hand Smoke Exposure: No Use of substances other than those prescribed or required for medical reasons: No Advance Directives: No Advance Directives Information Provided: No service: No Current occupational status: retired [employer] Allergies Allergy/AdvReac Type Severity Reaction Status Date / Time No Known Allergies Allergy Verified 12/25/22 11:10 Home Medications Medication Instructions Recorded Confirmed Last Taken Type folic acid 1 mg tablet 1 mg PO DAILY 03/24/22 12/25/22 03/23/22 History levothyroxine 50 mcg tablet 50 mcg PO DAILY 03/24/22 12/25/22 11/18/22 History (Euthyrox) methotrexate sodium 2.5 mg tablet 2.5 mg PO TU@89903/24/22 12/25/22 11/11/22 History methotrexate sodium 2.5 mg tablet 5 mg PO MO@89903/24/22 12/25/22 11/17/22 History mycophenolate mofetil 500 mg tablet 500 mg PO BID 03/24/22 12/25/22 03/23/22 History prednisone 5 mg tablet 5 mg PO DAILY 03/24/22 12/25/22 03/23/22 History quetiapine 25 mg tablet 12.5 mg PO BEDTIME 03/24/22 12/25/22 03/23/22 History bisoprolol fumarate 10 mg tablet 5 mg PO QAM 11/18/22 12/25/22 11/18/22 History calcium carbonate 500 mg calcium 500 mg PO DAILY 11/18/22 12/25/22 Unknown History (1,250 mg) tablet zolpidem 10 mg tablet (Ambien) 10 mg PO BEDTIME PRN Insomnia 11/18/22 12/25/22 Unknown History Physical Exam 2 Vital Signs: Vital Signs: Last Vital Signs Temp 97.8 F 04/15/23 10:08 Pulse 67 04/15/23 10:08 Resp 18 04/15/23 10:08 BP 153/72 H 04/15/23 11:08 Pulse Ox 98 04/15/23 10:08 O2 Del Method Room Air 04/15/23 10:08 BMI result Body Mass Index 26.7 Const: General: comfortable and no acute distress O rientation/consciousness: patient oriented x3 Neck: Neck: Yes no lymphadenopathy Resp: Auscultation: clear to auscultation bilaterally Cardio: Rhythm: regular rhythm GI: Other: Currently nontender, no Trammell's sign Palpation (GI): Soft to palpation, nontender and no guarding Neuro: General: patient oriented x3 Results Labs 04/14/23 23:01 04/14/23 23:01 Labs: Abnormal lab results 04/14/23 04/15/23 Range/Units 23:01 05:16 WBC 13.0 H (4.8-10.8) X10*3/uL Neut % (Auto) 76.3 H (45-73) % Lymph % (Auto) 10.8 L (20-40) % [place] # (Auto) 1.3 H (0.1-1.2) X10*3/uL Abs Immat Gran (auto) 0.04 H (0.00-0.03) X10*3/uL Absolute Neuts (auto) 9.9 H (2.0-8.3) x10*3/uL Random Glucose 130 H (60-115) mg/dL C-Reactive Protein 0.84 H (< or = 0.50) mg/dL Urine Blood Trace H (Negative) Ur Leukocyte Esterase Trace H (Negative) Urine RBC 6-10 H (0-2) /HPF Urine WBC 6-10 H (0-5) /HPF Short CBC 04/14/23 Range/Units 23:01 WBC 13.0 H (4.8-10.8) X10*3/uL Hgb 12.6 (12.0-16.0) g/dl Hct 39.6 (37.0-47.0) % Plt Count 198 (160-400) X10*3/uL BMP 04/14/23 23:01 Sodium 141 Potassium 3.8 Chloride 106 Carbon Dioxide 26 BUN 16 Creatinine 0.89 Calcium 9.7 Liver Function 04/14/23 Range/Units 23:01 Total Bilirubin 0.4 (0.0-1.0) mg/dL Direct Bilirubin 0.1 (0.0-0.5) mg/dL AST 16 (5-31) U/L ALT 14 (0-31) U/L Alkaline Phosphatase 76 (39-117) U/L Albumin 3.8 (3.5-5.0) g/dL Urine 04/15/23 Range/Units 05:16 Urine Color Yellow Urine Appearance Cloudy Urine pH 8.5 (5.0-9.0) Ur Specific [place] 1.015 (1.005-1.025) Urine Protein Negative (Neg-Trace) mg/dL Urine Glucose (UA) Negative (Negative) mg/dL All other labs normal. Assessment and Plan (1) Gallstones: Status: Acute She is wellknown to me for gallstones. She had undergone attempted cholecystectomy last Oct 2022. However, the gallbladder was encased by duoedenum and transverse colon as well as omentum. I ended up placing a cholecystostomy tube which eventually fell off late last year. I had sent her to [facility] for consultation for cholecystectomy. However, they told her that it may be too risky to reattempt so she was not scheduled for surgery. She has occasional RUQ pain and had an episode yesterday. I have reivewed he imaging studies. Changes in and around the GB appear to be chronic. Her HIDA scan suggests chronic cholecystititis as well. She wants to be discharged from the ED. she says she feels well now and denies abdominal pain. I offered to admit her for observation but she says she feels fine now. Her daughter wants her prescribed Percocet for her periodic pain. The daughter Shauna has requested me to explore options, so I will refer her to [facility] for opinion and arrange for this from the office. Procedures Date of Service Date of Service: 04/22/23
== END 2023-04-15 13:44 | disposition home or self-care (01) ==
PROVIDERS: Emergency Medicine; Nurse Practitioner Family; Emergency Provider Emergency Medicine; PCP Internal Medicine Geriatric Medicine
DX: K80.20 Calculus of gallbladder without cholecystitis without obstruction (principal); R10.11 Right upper quadrant pain
CPT/HCPCS: 36415; 74176; 76705; 78226; 80053; 81001; 82248; 83690; 85025; 86140; 87086; 96361; 96374; 96375; 99285; A9537; J1885; J2270; J2405

== ENCOUNTER → 2023-04-15 03:17 | Outpatient (BNV) | payer OTHER, SELFPAY | PROVIDERS: Emergency Provider Emergency Medicine; PCP Internal Medicine Geriatric Medicine; Visit Provider Surgery | DX: K80.20 Calculus of gallbladder without cholecystitis without obstruction (principal) | CPT/HCPCS: 99283 ==